=== PATIENT | male | born 1945 | race African-American/Black ===

== ENCOUNTER 2025-03-19 09:44 | Outpatient (REF) | payer MEDICARE, SELFPAY ==
--- NOTE | ~2025-03-19 | XR_ITS ---
EXAMINATION: XR KNEE 3 VIEWS LEFT HISTORY: M25.562 - Pain in left knee COMPARISON: There are no prior studies for comparison. FINDINGS: AP, lateral, and sunrise patellar views of the left knee are submitted. The patient is again noted to be status post left total knee arthroplasty. The orthopedic elements are in anatomic alignment. There is no radiographic evidence of loosening. There is no fracture or dislocation. There is no joint effusion. The soft tissues are unremarkable. XR/XR knee LT 3V IMPRESSION: Status post left total knee arthroplasty. Electronically signed by: Rodrigue Alvarez MD 03/19/2025 12:51 PM EDT
--- OUTSIDE RECORDS SUMMARY | 2025-03-20 10:31 | XMS_ITS | Clinical Summary ---
Author Organization [facility] Address [address] [place] [address] Phone Care Team Providers Care Punch Press Operator Name Role Phone Stas Winston MD Primary Care Provider [phone] Allergies Active Allergy Reactions Criticality Noted Date [...] Department Care Team Description 02/19/2025 Orders Only [facility] Nephrology [facility] [address] [place] [address] Tania Espino MA 02/10/2025 Orders Only [facility] Nephrology [facility] [address] [place] [address] Brielle Nick MA Stage 3a chronic kidney [...] Description 06/16/2025 3:00 PM EST Office Visit [facility] Nephrology [facility] [address] [place] [address] Ally Villanueva MD [address] [place] [address] Health Maintenance Due Date Last Done Comments Pneumococcal PPSV23/PCV13 65 + Years / Low and Medium Risk (2 of 3 - PCV20 or PCV21) 04/20/2016 04/20/2015 COVID-19 Vaccine ( - 2023-2 5 season) 2024 05/06/2021, 10/28/2020, 09/28/2020 Influenza Vaccine (#1) 2025 , 05/16/2019, 04/19/2018, Additional history exists Insurance Care Teams Punch Press Operator Relationship Specialty Start Date End Date Stas Winston MD PCP - General 11/07/24
--- OUTSIDE RECORDS SUMMARY | 2025-03-20 10:32 | XMS_ITS | Encounter Summary ---
Author Organization [facility] Address [address] [place] [address] Care Team Providers Care Solar System Installer Name Role Phone Stas Winston MD Primary Care Provider [phone] Encounter Details Date Type Department Care Team (Late st Contact Info) Description 11/23/2023 Scanned Document [facility] Department of Physiatry [place] [address] [place] [id number] Elissa Lay MD [address] [place] [address] Social History Tobacco Use Types Packs/Day Years Used Date Smoking Tobacco: Unknown Sex and Gender Information Value Date Recorded Sex Assigned at Not on file Legal Sex Male 11:25 AM EDT Gender Identity Not on file Sexual Orientation Not on file documented as of this encounter Plan of Treatment Not on file documented as of this encounter Goals Goal Patient Goal Type Associated Problems Recent Progress Patient-Stated? Author OT LTGs Occupational Therapy On track(2022 6:48 PM EST) No Jacque Ratliff OT Note: Pt. Will have improved L wrist AROM to Ext/Flex = 60-70, FA sup/pro=WNL without pain to position hand for prehension tasks 07/13/2023: in progress Pt. 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 Will be able to open containers without symptoms in order to complete housework 07/13/2023: in progress Pt. Will be able to push up from chair without symptoms to transfer to RW in order to complete I/ADLs 07/13/23: reports is able to push up but compensates with R hand Pt. Will improve score on Quick Dash to 20-25 to reflect gain in comfort/function. 07/13/23: 68.2 LTG length: 10 wks documented as of this encounter Visit Diagnoses Not on filedocumented in this encounter Care Teams Solar System Installer Relationship Specialty Start Date End Date Stas Winston MD PCP - General Family Medicine 05/09/23 documented as of this encounter
--- OUTSIDE RECORDS SUMMARY | 2025-03-20 10:32 | XMS_ITS | Clinical Summary ---
Author Organization [facility] Address [address] [place] [address] Care Team Providers Care Systems Software Specialist Name Role Phone Stas Winston MD Primary Care Provider [phone] Allergies Active Allergy Reactions Criticality Noted Date [...] 3 04/14/2022 Active Lancets (OneTouch Delica Plus [id number]) MISC USE WITH METER TO TEST ONCE [...] this topic Medical Devices Implanted Type Area Automobile Damage Field Appraiser Device Identifier Shelf Expiration Date Model / Serial / Lot Cement Simplex P Radiopaque Full Dose Bone 10 Pack - 975210 - [id number] Implanted:Qty: 1 on 04/23/2020 by Alan Quintanilla MD at [facility] Right: Knee [employer] [id number] 09/06/2021 6191-1-010 / / [id number] Cement Simplex P Radiopaque Full Dose Bone 10 Pack - 778931 - [id number] Implanted:Qty: 1 on 04/23/2020 by Alan Quintanilla MD at [facility] Right: Knee [employer] [id number] 09/06/2021 6191-1-010 / / [id number] Baseplate Triathlon 7 Cemented Primary Tibial Knee - 509688 - [id number] Implanted:Qty: 1 on 04/23/2020 by Alan Quintanilla MD at [facility] Right: Knee [employer] [id number] 05/28/2024 5520-B-700 / / [id number] Component Triathlon 6 Posterior Stabilized Cemented Femoral - 238222 - [id number] Implanted:Qty: 1 on 04/23/2020 by Alan Quintanilla MD at [facility] Right: Knee [employer] [id number] 03/19/2024 5515-F-602 / / [id number] Triathlon Ps Insert - Size 7 10mm X3 - 194411 - [id number] Implanted:Qty: 1 on 04/23/2020 by Alan Quintanilla MD at [facility] Right: Knee [employer] [id number] 01/27/2024 5532-G-710 -E / / [id number] Component Triathlon 10mm 35mm Symmetric X3 Ptlar Knee - [id number] - [id number] Implanted:Qty: 1 on 04/23/2020 by Alan Quintanilla MD at [facility] Right: Knee [employer] [id number] 01/28/2024 5551-G-350 / / [id number] Peg Triathlon Modular Fix Distal Femur Knee - 255061 - [id number] Implanted:Qty: 1 on 04/23/2020 by Alan Quintanilla MD at [facility] Right: Knee [employer] [id number] 09/03/2024 5575-X-000 / / [id number] Knee Fem Ps Trthln Sz 6 Lt Stry-Howm 4377-F-062-534 741 - [id number] Implanted:Qty: 1 on 08/26/2021 by Alan Quintanilla MD at [facility] Left: Knee [employer] [id number] 04/07/2026 5515-F-601 / / [id number] Baseplate Triathlon Cmnt Stry-Howm 2997-Y-612-349 798 - [id number] Implanted:Qty: 1 on 08/26/2021 by Alan Quintanilla MD at [facility] Left: Knee [employer] [id number] 01/14/2024 5520-B-700 / / [id number] Knee Insert Tib Ps X3 Sz 7-9 Stry-Howm 0048-E-763-547 884 - [id number] Implanted:Qty: 1 on 08/26/2021 by Alan Quintanilla MD at [facility] Left: Knee [employer] [id number] 12/20/2025 5532-G-709 / / [id number] Knee Pat Asymmetric X3 [id number] Stry-Howm 2164-K-923-E-2 58880 - [id number] Implanted:Qty: 1 on 08/26/2021 by Alan Quintanilla MD at [facility] Left: Knee [employer] [id number] 09/18/2025 5551-G-320 -E / / [id number] Peg Fix Femoral Distal Stry-Howm 4964-O-052-547 704 - [id number] Implanted:Qty: 1 on 08/26/2021 by Alan Quintanilla MD at [facility] Left: Knee [employer] [id number] 05/23/2025 5575-X-000 / / [id number] Cement Bone Surg Simplex Radiopq Stry-Howm 4699-7-717-114 092 - [id number] Implanted:Qty: 1 on 08/26/2021 by Alan Quintanilla MD at [facility] Left: Knee [employer] [id number] 10/05/2023 6191-1-010 / / [id number] Cement Bone Surg Simplex Radiopq Stry-Howm 5134-6-983-114 092 - [id number] Implanted:Qty: 1 on 08/26/2021 by Alan Quintanilla MD at [facility] Left: Knee [employer] [id number] 10/05/2023 6191-1-010 / / [id number] Advance Directives For more information, please contact: [phone] Latest Code Status on File Code Status [...] way: discussion with patient . Care Teams Systems Software Specialist Relationship Specialty Start Date End Date Stas Winston MD PCP - General Family Medicine 03/26/14
--- OUTSIDE RECORDS SUMMARY | 2025-03-20 10:32 | XMS_ITS ---
Author Name [facility] Organization Unknown Results Test Name/Text Value Interpretation Date Range Source AST SERPL CCNC 16.0 U/L Normal 01/16/2024 5 - 40 [facility] ANION GAP SERPL SCNC 12.0 mmol/L Normal 01/16/2024 5 - 14 [facility] SODIUM SERPL SCNC 146.0 mmol/L Above high normal 01/16/2024 135 - 145 [facility] CHLORIDE SERPL SCNC 105.0 mmol/L Normal 01/16/2024 98 - 1 07 [facility] ALBUMIN SERPL BCG MCNC 4.5 g/dL Normal 01/16/2024 3.5 - 5 [facility] CREAT SERPL MCNC 1.3 mg/dL Normal 01/16/2024 0.7 - 1.3 [facility] ALP SERPL-CCNC 116.0 U/L Above high normal 01/16/2024 34 - 1 04 [facility] HCO3 SER SCNC 29.0 mmol/L Normal 01/16/2024 24 - 32 [facility] POTASSIUM SERPL SCNC 4.0 mmol/L Normal 01/16/2024 3.5 - 5 .1 [facility] CALCIUM SERPL MCNC 9.8 mg/dL Normal 01/16/2024 8.4 - 10.2 [facility] GLUCOSE SERPL MCNC 74.0 mg/dL Normal 01/16/2024 70 - 199 [facility] PROT SERPL MCNC 7.2 g/dL Normal 01/16/2024 6.4 - 8.5 [facility] BUN SERPL MCNC 16.0 mg/dL Normal 01/16/2024 9 - 20 [facility] ALT SERPL CCNC 18.0 U/L Normal 01/16/2024 7 - 52 [facility] BILIRUB SERPL MCNC 0.9 mg/dL Normal 01/16/2024 0.3 - 1 [facility] Glomerular filtration rate/1.73 sq M. predicted 57.0 Below low normal 01/16/2024 60 - [facility] APTT TIME PPP 45.0 sec Above high normal 01/16/2024 25 - 37 [facility] PT TIME PPP 11.3 sec Normal 01/16/2024 10.5 - 13.3 [facility] EMG INR PPP 0.9 Normal 01/16/2024 0.8 - 1.1 [facility] MCHC RBC AUTO MCNC 33.9 g/dL Normal 2024 32 - 36 [facility] RDW RBC AUTO RTO 14.8 % Normal 2024 12.1 - 17.7 [facility] BASOPHILS IN BLOOD BY AUTOMATED COUNT 0.1 K/uL Normal 2024 0 - 0.2 [facility] MCH RBC QN AUTO 32.2 pg Normal 2024 25 - 33 [facility] LYMPHOCYTES NFR BLD AUTO 20.2 % Normal 2024 20 - 48 [facility] MONOCYTES NFR BLD AUTO 8.6 % Normal 2024 2 - 12 [facility] MCV RBC AUTO 94.7 fL Normal 2024 78 - 100 [facility] MG RBC NO. BLD AUTO 4.08 M/uL Below low normal 2024 4.7 - 6 [facility] PLATELET NO. BLD AUTO 332.0 K/uL Normal 2024 150 - 450 [facility] EOSINOPHIL NFR BLD AUTO 3.1 % Normal 2024 0 - 6 [facility] BASOPHILS NFR BLD AUTO 0.7 % Normal 2024 0 - 2 [facility] DIFFERENTIAL TYPE AUTOMATED Normal 2024 C [facility] MONOCYTES NO. BLD AUTO 0.8 K/uL Normal 2024 0 - 0.8 [facility] EOSINOPHIL NO. BLD AUTO 0.3 K/uL Normal 2024 0 - 0.5 [facility] WBC NO. BLD AUTO 8.8 K/uL Normal 2024 4 - 10.5 [facility] LYMPHOCYTES NO. BLD AUTO 1.8 K/uL Normal 2024 1 - 3.2 [facility] PMV BLD AUTO 8.0 fL Normal 2024 7.4 - 11.4 [facility] EM[facility] HCT VFR BLD AUTO 38.7 % Below low normal 2024 40 - 54 [facility] NEUTROPHILS NFR BLD AUTO 67.4 % Normal 2024 44 - 74 [facility] HGB BLD MCNC 13.1 g/dL Below low normal 2024 13.5 - 18 [facility] NEUTROPHILS NO. BLD AUTO 5.9 K/uL Normal 2024 1.8 - 7.8 [facility] CREAT UR MCNC 118.9 mg/dL Normal 10/04/2023 [facility] PROT UR MCNC 41.2 mg/dL Above high normal 10/04/2023 - 14 [facility] Prot/Creat Ur 0.35 Normal 10/04/2023 [facility] FERRITIN SERPL MCNC 61.0 ng/mL Normal 10/04/2023 20 - 250 [facility] HDLC SERPL-MCNC 51.0 mg/dL Normal 10/04/2023 32 - 70 [facility] TRIGL SERPL-MCNC 100.0 mg/dL Normal 10/04/2023 - 150 [facility] LDLc SerPl Calc-mCnc 79.0 mg/dL Normal 10/04/2023 50 - 13 0 [facility] CHOLEST SERPL-MCNC 150.0 mg/dL Normal 10/04/2023 0 - 200 [facility] ANION GAP SERPL SCNC 14.0 mmol/L Normal 10/04/2023 5 - 14 [facility] AST SERPL CCNC 12.0 U/L Normal 10/04/2023 5 - 40 [facility] CREAT SERPL MCNC 1.1 mg/dL Normal 10/04/2023 0.7 - 1.3 [facility] PROT SERPL MCNC 7.6 g/dL Normal 10/04/2023 6.4 - 8.5 [facility] ALP SERPL-CCNC 109.0 U/L Above high normal 10/04/2023 34 - 1 04 [facility] ALT SERPL CCNC 12.0 U/L Normal 10/04/2023 7 - 52 [facility] SODIUM SERPL SCNC 145.0 mmol/L Normal 10/04/2023 135 - 14 5 [facility] GLUCOSE SERPL MCNC 130.0 mg/dL Normal 10/04/2023 70 - 199 [facility] ALBUMIN SERPL BCG MCNC 4.8 g/dL Normal 10/04/2023 3.5 - 5 [facility] POTASSIUM SERPL SCNC 3.7 mmol/L Normal 10/04/2023 3.5 - 5 .1 [facility] BUN SERPL MCNC 18.0 mg/dL Normal 10/04/2023 9 - 20 [facility] BILIRUB SERPL MCNC 0.7 mg/dL Normal 10/04/2023 0.3 - 1 [facility] CHLORIDE SERPL SCNC 105.0 mmol/L Normal 10/04/2023 98 - 1 07 [facility] Glomerular filtration rate/1.73 sq M. predicted 70.0 Normal 10/04/2023 60 - [facility] CALCIUM SERPL MCNC 10.0 mg/dL Normal 10/04/2023 8.4 - 10. 2 [facility] HCO3 SER SCNC 26.0 mmol/L Normal 10/04/2023 24 - 32 [facility] PLATELET NO. BLD AUTO 326.0 K/uL Normal 10/04/2023 150 - 450 [facility] BASOPHILS NFR BLD AUTO 0.5 % Normal 10/04/2023 0 - 2 [facility] NEUTROPHILS NFR BLD AUTO 66.9 % Normal 10/04/2023 44 - 74 [facility] LYMPHOCYTES NO. BLD AUTO 1.8 K/uL Normal 10/04/2023 1 - 3.2 [facility] WBC NO. BLD AUTO 8.3 K/uL Normal 10/04/2023 4 - 10.5 [facility] RDW RBC AUTO RTO 15.5 % Normal 10/04/2023 12.1 - 17.7 [facility] BASOPHILS IN BLOOD BY AUTOMATED COUNT 0.0 K/uL Normal 10/04/2023 0 - 0.2 [facility] LYMPHOCYTES NFR BLD AUTO 21.2 % Normal 10/04/2023 20 - 48 [facility] MONOCYTES NFR BLD AUTO 7.9 % Normal 10/04/2023 2 - 12 [facility] PMV BLD AUTO 7.8 fL Normal 10/04/2023 7.4 - 11.4 [facility] EM[facility] EOSINOPHIL NFR BLD AUTO 3.5 % Normal 10/04/2023 0 - 6 [facility] RBC NO. BLD AUTO 4.19 M/uL Below low normal 10/04/2023 4.7 - 6 [facility] DIFFERENTIAL TYPE AUTOMATED Normal 10/04/2023 C [facility] HCT VFR BLD AUTO 38.4 % Below low normal 10/04/2023 40 - 54 [facility] MONOCYTES NO. BLD AUTO 0.7 K/uL Normal 10/04/2023 0 - 0.8 [facility] MCV RBC AUTO 91.7 fL Normal 10/04/2023 78 - 100 [facility] MG MCH RBC QN AUTO 30.6 pg Normal 10/04/2023 25 - 33 [facility] HGB BLD MCNC 12.8 g/dL Below low normal 10/04/2023 13.5 - 18 [facility] NEUTROPHILS NO. BLD AUTO 5.6 K/uL Normal 10/04/2023 1.8 - 7.8 [facility] EOSINOPHIL NO. BLD AUTO 0.3 K/uL Normal 10/04/2023 0 - 0.5 [facility] MCHC RBC AUTO MCNC 33.4 g/dL Normal 10/04/2023 32 - 36 [facility] URATE SERPL MCNC 9.4 mg/dL Above high normal 10/04/2023 3.5 - 8.5 [facility] TIBC SERPL MCNC 372.0 ug/dL Normal 10/04/2023 250 - 450 [facility] IRON SERPL MCNC 77.0 mcg/dL Normal 10/04/2023 49 - 181 [facility] UIBC SERPL MCNC 295.0 ug/dL Normal 10/04/2023 155 - 355 [facility] IRON SATN MFR SERPL 21.0 % Normal 10/04/2023 20 - 45 [facility] ESR Bld Qn Photometric 45.0 mm/h Above high normal 10/04/2023 0 - 15 [facility] Glomerular filtration rate/1.73 sq M. predicted 63.0 Normal 05/29/2023 60 - [facility] HCO3 SER SCNC 30.0 mmol/L Normal 05/29/2023 24 - 32 [facility] SODIUM SERPL SCNC 145.0 mmol/L Normal 05/29/2023 135 - 14 5 [facility] GLUCOSE SERPL MCNC 179.0 mg/dL Normal 05/29/2023 70 - 199 [facility] CALCIUM SERPL MCNC 8.7 mg/dL Normal 05/29/2023 8.4 - 10.2 [facility] CHLORIDE SERPL SCNC 106.0 mmol/L Normal 05/29/2023 98 - 1 07 [facility] BUN SERPL MCNC 17.0 mg/dL Normal 05/29/2023 9 - 20 [facility] CREAT SERPL MCNC 1.2 mg/dL Normal 05/29/2023 0.7 - 1.3 [facility] POTASSIUM SERPL SCNC 3.3 mmol/L Below low normal 05/29/2023 3.5 - 5.1 [facility] ANION GAP SERPL SCNC 9.0 mmol/L Normal 05/29/2023 5 - 14 [facility] HDLC SERPL-MCNC 41.0 mg/dL Normal 05/29/2023 32 - 70 [facility] CHOLEST SERPL-MCNC 133.0 mg/dL Normal 05/29/2023 0 - 200 [facility] LDLc SerPl Calc-mCnc 73.0 mg/dL Normal 05/29/2023 50 - 13 0 [facility] TRIGL SERPL-MCNC 93.0 mg/dL Normal 05/29/2023 - 150 C [facility] Hgb A1c MFr Bld HPLC 7.8 % Above high normal 05/29/2023 - 5.7 [facility] MAGNESIUM SERPL MCNC 1.4 mg/dL Below low normal 05/29/2023 1 .7 - 2.8 [facility] HCT VFR BLD AUTO 33.6 % Below low normal 05/29/2023 40 - 54 [facility] RBC NO. BLD AUTO 3.56 M/uL Below low normal 05/29/2023 4.7 - 6 [facility] MCH RBC QN AUTO 31.6 pg Normal 05/29/2023 25 - 33 [facility] WBC NO. BLD AUTO 7.4 K/uL Normal 05/29/2023 4 - 10.5 [facility] RDW RBC AUTO RTO 14.5 % Normal 05/29/2023 12.1 - 17.7 [facility] PLATELET NO. BLD AUTO 250.0 K/uL Normal 05/29/2023 150 - 450 [facility] MCV RBC AUTO 94.3 fL Normal 05/29/2023 78 - 100 [facility]AN MCHC RBC AUTO MCNC 33.5 g/dL Normal 05/29/2023 32 - 36 [facility] PMV BLD AUTO 7.5 fL Normal 05/29/2023 7.4 - 11.4 [facility] YUAN HGB BLD MCNC 11.3 g/dL Below low normal 05/29/2023 13.5 - 18 [facility] Troponin I SerPl HS-mCnc 9.0 ng/L Normal 05/28/2023 0 - 20 [facility] MONOCYTES NFR BLD AUTO 7.9 % Normal 05/28/2023 2 - 12 [facility] NEUTROPHILS NFR BLD AUTO 64.9 % Normal 05/28/2023 44 - 74 [facility] PLATELET NO. BLD AUTO 280.0 K/uL Normal 05/28/2023 150 - 450 [facility] PMV BLD AUTO 7.8 fL Normal 05/28/2023 7.4 - 11.4 [facility] DIFFERENTIAL TYPE AUTOMATED Normal 05/28/2023 C [facility] NEUTROPHILS NO. BLD AUTO 5.3 K/uL Normal 05/28/2023 1.8 - 7.8 [facility] MCV RBC AUTO 95.6 fL Normal 05/28/2023 78 - 100 [facility] EOSINOPHIL NO. BLD AUTO 0.3 K/uL Normal 05/28/2023 0 - 0.5 [facility] BASOPHILS IN BLOOD BY AUTOMATED COUNT 0.1 K/uL Normal 05/28/2023 0 - 0.2 [facility] MONOCYTES NO. BLD AUTO 0.7 K/uL Normal 05/28/2023 0 - 0.8 [facility] RDW RBC AUTO RTO 14.8 % Normal 05/28/2023 12.1 - 17.7 [facility] MCHC RBC AUTO MCNC 33.3 g/dL Normal 05/28/2023 32 - 36 [facility] HCT VFR BLD AUTO 35.9 % Below low normal 05/28/2023 40 - 54 [facility] WBC NO. BLD AUTO 8.2 K/uL Normal 05/28/2023 4 - 10.5 [facility] MCH RBC QN AUTO 31.8 pg Normal 05/28/2023 25 - 33 [facility] LYMPHOCYTES NFR BLD AUTO 23.0 % Normal 05/28/2023 20 - 48 [facility] EOSINOPHIL NFR BLD AUTO 3.3 % Normal 05/28/2023 0 - 6 [facility] HGB BLD MCNC 12.0 g/dL Below low normal 05/28/2023 13.5 - 18 [facility] BASOPHILS NFR BLD AUTO 0.9 % Normal 05/28/2023 0 - 2 [facility] LYMPHOCYTES NO. BLD AUTO 1.9 K/uL Normal 05/28/2023 1 - 3.2 [facility] RBC NO. BLD AUTO 3.76 M/uL Below low normal 05/28/2023 4.7 - 6 [facility] Troponin I SerPl HS-mCnc 6.0 ng/L Normal 05/28/2023 0 - 20 [facility] HCO3 SER SCNC 24.0 mmol/L Normal 05/28/2023 24 - 32 [facility] CHLORIDE SERPL SCNC 104.0 mmol/L Normal 05/28/2023 98 - 1 07 [facility] BUN SERPL MCNC 17.0 mg/dL Normal 05/28/2023 9 - 20 [facility] SODIUM SERPL SCNC 142.0 mmol/L Normal 05/28/2023 135 - 14 5 [facility] POTASSIUM SERPL SCNC 3.5 mmol/L Normal 05/28/2023 3.5 - 5 .1 [facility] ANION GAP SERPL SCNC 14.0 mmol/L Normal 05/28/2023 5 - 14 [facility] CALCIUM SERPL MCNC 9.2 mg/dL Normal 05/28/2023 8.4 - 10.2 [facility] Glomerular filtration rate/1.73 sq M. predicted 70.0 Normal 05/28/2023 60 - [facility] CREAT SERPL MCNC 1.1 mg/dL Normal 05/28/2023 0.7 - 1.3 [facility] GLUCOSE SERPL MCNC 240.0 mg/dL Above high normal 05/28/2023 70 - 199 [facility] History of Medication Use Medication Directions Dispensed Refills Start Date End Date Status Mounjaro 10 mg/0.5 mL subcutaneous pen injector Inject 10 mg every week by subcutaneous route. 4 active colchicine 0.6 mg tablet Take 1 tablet every day by oral route. 4 active Tirzepatide (Mounjaro) 5 MG/0.5ML Solution Pen-injector Inject 0.5 mL every week by subcutaneous route. 4 06/26/20 24 aborted predniSONE (DELTASONE) 20 MG tablet Take 2 tablets (40 mg total) by mouth daily. With food. 3 06/26/20 24 aborted ibuprofen (ADVIL,MOTRIN) 400 mg tablet Take 1 tablet (400 mg total) by mouth. 3 08/19/19 25 aborted ibuprofen 400 MG tablet Take 1 tablet (400 mg total) by mouth. 3 active methylPREDNISolone (MEDROL DOSEPAK) 4 MG tablet follow package directions 3 06/26/20 24 active methylPREDNISolone (MEDROL DOSEPACK) 4 MG tablet TAKE 6 TABLETS ON DAY 1 DIRECTED ON PACKAGE AND DECREASE BY 1 TAB EACH DAY FOR A TOTAL OF 6 DAYS 3 active carvediloL (COREG) 6.25 mg tablet Take 1 tablet (6.25 mg total) by mouth 2 (two) times a day. 3 active codeine 10 mg-guaifenesin 100 mg/5 mL Syrup Take 5 mL by mouth 4 (four) times a day as needed for cough. 3 10/03/19 24 completed amoxicillin 500 mg tablet Take 4 tabs 1 hour prior to dental appointment 2 active amoxicillin (AMOXIL) 500 MG tablet Take 4 tabs 1 hour prior to dental appointment 2 active methocarbamol 750 mg tablet Take 1 tablet (750 mg total) by mouth every 6 (six) hours as needed. 2 01/08/20 22 completed oxycodone 5 mg tablet,oral ONLY (not feeding tubes) Take 1 tablet (5 mg total) by mouth every 4 (four) hours as needed. 2 01/08/20 22 completed aspirin 81 mg tablet,delayed release Take 1 tablet (81 mg total) by mouth 2 (two) times a day after meals. 2 active cholecalciferol (VITAMIN D-3) 25 mcg (1,000 unit) capsule Take 1 capsule (1,000 Units total) by mouth 1 (one) time each day. 1 active Vitamin D, Cholecalciferol, 25 MCG (1000 UT) CAPS Take 1,000 Units by mouth daily. 1 active fluticasone propionate 50 mcg/actuation nasal spray,suspension USE 1 TO 2 SPRAYS IN EACH NOSTRIL EVERY DAY 9 08/12/19 22 completed Shingrix (PF) 50 mcg/0.5 mL intramuscular suspension, kit ADM 0.5ML IM UTD 9 01/08/20 20 completed cyclobenzaprine 10 mg tablet Take 1 tablet (10 mg total) by mouth 3 (three) times a day as needed for muscle spasms. 9 05/07/20 19 completed methocarbamol 500 mg tablet Take 1 tablet (500 mg total) by mouth 3 (three) times a day. 9 05/07/20 19 completed atorvastatin 40 mg tablet Take 1 tablet (40 mg total) by mouth daily. 9 08/20/19 19 completed naproxen 500 mg tablet Take 1 tablet (50 0 mg total) by mouth 2 (two) times a day with meals. 8 08/20/19 19 completed tizanidine 2 mg tablet Take 1-2 tabs po Q 8 hours prn spasm 6 08/17/19 17 completed hydromorphone 8 mg tablet Take 1 tablet (8 mg total) by mouth every 4 (four) hours as needed. 5 12/18/19 15 completed diclofenac 1 % topical gel APPLY 2 GRAMS TO THE LOWER BACK BY TOPICAL ROUTE 4 TIMES PER DAY 08/13/19 25 completed lidocaine 5 % topical patch APPLY 1 PATCH BY TOPICAL ROUTE ONCE DAILY (MAY WEAR UP TO 12HOURS.) 08/13/19 25 completed oxycodone-acetaminophe n 5 mg-325 mg tablet TAKE 1 TABLET BY MOUTH EVERY 8 HOURS FOR UP TO 5 DAYS NEEDED FOR PAIN 04/23/20 24 active prednisone 10 mg tablet TAKE 3 TABS X 4 DAYS, 2 TABS X 4 DAYS THEN 1 TAB X 4 DAYS 04/23/20 24 completed prednisone 20 mg tablet TAKE 2 TABLETS BY MOUTH EVERY DAY WITH FOOD 04/23/20 24 active triamterene 37.5 mg-hydrochlorothiazide 25 mg capsule TAKE 1 CAPSULE BY MOUTH TWICE DAILY 04/23/20 24 completed colchicine 0.6 mg tablet TAKE 1 TABLET BY MOUTH EVERY DAY 02/01/20 24 completed ibuprofen 400 mg tablet 02/01/20 24 completed lisinopril 20 mg tablet 02/01/20 24 active Mounjaro 2.5 mg/0.5 mL subcutaneous pen injector INJECT 2.5 MG SUBCUTANEOUSLY WEEKLY 11/17/19 24 completed Cloupia Verio test strips USE WITH METER TO TEST ONCE DAILY 11/17/19 24 active amoxicillin 500 mg capsule TAKE 4 CAPS 1 HOUR PRIOR TO DENTAL APPOINTMENT 10/03/19 24 completed Ferrous Sulfate ER 142 (45 Fe) MG TBCR Take by mouth. 08/15/19 24 aborted codeine 10 mg-guaifenesin 100 mg/5 mL oral liquid TAKE 5 ML BY MOUTH FOUR TIMES DAILY NEEDED 06/07/20 23 active neomycin 3.5 mg/g-polymyxin B 10,000 unit/g-dexameth 0.1 % eye oint APPLY 1/4 INCH STRIP INSIDE LOWER EYE LID TWICE A DAY FOR 7 DAYS 06/07/20 23 completed tobramycin 0.3 %-dexamethasone 0.1 % eye drops,suspension INSTILL 1 DROP INTO RIGHT EYE FOUR TIMES A DAY FOR 7 DAYS THEN TWICE A DAY FOR 7 DAYS. SHAKE WELL 06/07/20 23 completed acetaminophen 325 mg tablet Take 650 mg by mouth every 6 (six) hours as needed for pain. 01/26/20 16 completed diclofenac 1 % topical gel active lidocaine 5 % topical patch active amoxicillin 500 mg capsule TAKE 4 CAPS 1 HOUR PRIOR TO DENTAL APPOINTMENT active aspirin 81 mg capsule Take 1 capsule every day by oral route. active atorvastatin 20 mg tablet active cyclobenzaprine 5 mg tablet TAKE 1 TABLET EVERY DAY BY ORAL ROUTE AT BEDTIME FOR 21 DAYS, FOR PAIN. active diclofenac 1 % topical gel APPLY 2 GRAMS TO THE LOWER BACK BY TOPICAL ROUTE 4 TIMES PER DAY active lidocaine 5 % topical patch APPLY 1 PATCH BY TOPICAL ROUTE ONCE DAILY (MAY WEAR UP TO 12HOURS.) active metformin 500 mg tablet TAKE 1 TABLET BY MOUTH AT BREAKFAST AND 2 TABLETS WITH DINNER active Mounjaro 5 mg/0.5 mL subcutaneous pen injector INJECT 0.5 ML SUBCUTANEOUSLY EVERY WEEK active Mounjaro 7.5 mg/0.5 mL subcutaneous pen injector INJECT 7.5 MG SUBCUTANEOUSLY WEEKLY active amLODIPine (NORVASC) 5 mg tablet Take 1 tablet (5 mg total) by mouth 1 (one) time each day. active amLODIPine (NORVASC) tablet 5 mg Take 1 tablet (5 mg total) by mouth daily. active aspirin enteric coated (ECOTRIN LOW STRENGTH) 81 MG EC tablet Take 81 mg by mouth. active Atorvastatin Calcium TABS Atorvastatin Calcium TABS Refills: 0Active completed carvedilol (COREG) 6.25 MG tablet Take 6.25 mg by mouth 2 times a day. active Ferrous Sulfate (SLOW RELEASE IRON PO) Take 65 mg by mouth daily. active Allergies Allergen Reaction Severity Comment Documented Date Source Status EMPAGLIFLOZIN UNKNOWN/PATIE NT AND FAMILY UNABLE TO DEFINE [facility] 12/08/20[facility] DAPAGLIFLOZIN UNKNOWN/PATIE NT AND FAMILY UNABLE TO DEFINE Nausea dizziness 08/15/2022 [facility] active DAPAGLIFLOZIN PROPANEDIOL [facility] FARXIGA ENS_AONECT JARDIANCE ENS_AONECT Problems Problem Status Onset Date Problem Type Date of Resolution Source Stage 3a chronic kidney disease ([facility] V24, [facility] V28) active 2021-06-02 ProblemAct [facility] Hyperlipemia active 2014-11-02 ProblemAct [facility] Adrenal benign neoplasm active 2015-04-17 ProblemAct [facility] Spinal stenosis, lumbar region, without neurogenic claudication active 2015-04-28 ProblemAct [facility] Nonrheumatic aortic valve insufficiency active 2020-04-22 ProblemAct [facility] AN Peripheral neuropathy active 2014-11-02 ProblemAct [facility] Anemia, unspecified active 2015-04-17 ProblemAct [facility] Obesity (BMI 30.0-34.9) active 2021-08-17 ProblemAct [facility] Chest pain active 2023-05-28 ProblemAct [facility]SF RAN Open angle with borderline findings and low glaucoma risk in both eyes active 2017-06-27 ProblemAct [facility] Vertigo active 2020-01-27 ProblemAct [facility] AN Allergic rhinitis active 2015-04-17 ProblemAct [facility] Vitamin D deficiency active 2020-06-05 ProblemAct [facility] Acute pain of right knee active 2018-06-18 ProblemAct [facility] Lumbosacral spondylosis without myelopathy active 2015-04-28 ProblemAct [facility] Hypermetropia of both eyes active 2017-06-27 ProblemAct [facility] Lesion of face active 2018-12-18 ProblemAct [facility]_ [facility] Diabetes (CMS/HCC V24, CMS/HCC V28) active 2014-11-02 ProblemAct [facility] Hypertension active 2014-11-02 ProblemAct [facility] SFR[facility] Benign paroxysmal positional vertigo due to bilateral vestibular disorder active 2016-06-16 ProblemAct [facility] AN Obstructive sleep apnea active 2022-07-19 ProblemAct [facility] Acute right-sided low back pain with sciatica active 2022-01-07 ProblemAct [facility] Localized edema active EncounterDiagnosisAct [facility] Former light tobacco smoker active 2023-01-24 ProblemAct [facility] Obesity (BMI 30.0-34.9) active 2021-08-17 ProblemAct [facility] History of colonic polyps active 2016-01-26 ProblemAct [facility] Chronic knee pain after total replacement of left knee joint active EncounterDiagnosisAct [facility] Bilateral carpal tunnel syndrome active 2023-12-11 ProblemAct [facility] Osteoarthritis of finger joint of right hand active 2024-08-14 ProblemAct ENS_AONECT Pain of left knee joint active 2023-02-20 ProblemAct E[facility]_AONECT Bilateral carpal tunnel syndrome active 2023-11-23 ProblemAct [facility] Pain of left hand active 2023-11-23 ProblemAct E[facility]_AON[facility] History of left total knee replacement active 2023-05-01 ProblemAct [facility] History of right total knee replacement active 2023-05-01 ProblemAct E[facility]_AONECT Edema of lower extremity active 2024 ProblemAct [facility] Persistent cough active 2024-09-24 ProblemAct C T_PRIVIA Jaw pain active 2022-12-09 ProblemAct [facility] A Anemia active 2015-04-17 ProblemAct [facility] A Bilateral hyperopia of eyes active 2017-06-27 ProblemAct [facility] Lesion of face active 2018-12-18 ProblemAct [facility]_ PR[facility] Vitamin D deficiency active 2020-06-05 ProblemAct [facility] Swelling of lower leg active 2024 ProblemAct [facility] 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 active 2017-06-27 ProblemAct [facility] Pain in fingers of bilateral hands active 2023-10-03 ProblemAct [facility] Vertigo active 2020-01-27 ProblemAct [facility] A Lumbosacral spondylosis without myelopathy active 2015-04-28 ProblemAct [facility] Bilateral pain of joint of hands active 2023-10-05 ProblemAct [facility] Essential hypertension active 2023-10-03 ProblemAct [facility] History of polyp of colon active 2016-01-26 ProblemAct [facility] Allergic rhinitis active 2015-04-17 ProblemAct [facility] Benign paroxysmal positional vertigo active 2016-06-16 ProblemAct [facility] Increased frequency of urination active 2022-12-08 ProblemAct [facility] Benign neoplasm of adrenal gland active 2015-04-17 ProblemAct [facility] Obese class I active 2021-08-17 ProblemAct [facility]P R[facility] Peripheral nerve disease active 2014-11-02 ProblemAct [facility] Immunizations Vaccine Date Source Lot Number Status Fluad Triv (65y up)(P F) 45 mcg (15 mcg x 3)/0.5 mL IM syringe 04/23/2024 [facility] [id number] compl eted Fluad Quad (65yr up )(PF) 60 mcg (15 mcg x 4)/0.5mL IM syringe 05/25/2023 [facility] [id number] co mpleted Prevnar 20 (PF) 0.5 mL intra muscular syringe 03/20/2023 CT_PRIVIA [id number] completed Influenza Quadravalent, 0.5m l (Fluad) 65yo and older 05/12/2022 CT_MAGUE [id number] completed SARS-COV-2 (COVID-19) vaccin e, mRNA, spike protein, LNP, bivalent booster, preservative free, 30 mcg/0.3 mL dose, jigar-sucrose formulation 04/27/2022 CT_CONCETTA [id number] complet ed Influenza Quadravalent, 0.5m l (Fluad) 65yo and older 06/01/2021 CT_MAGUE [id number] completed Covid-19 MRNA Vaccine - Pfiz er 12+ (Purple Cap) 05/06/2021 [facility] [id number] completed tetanus toxoid, reduced diph theria toxoid, and acellular pertussis vaccine, adsorbed 03/16/2021 [facility]_CONCETTA [id number] completed zoster vaccine subunit 03/16/2021 ANTONY [id number] co mpleted SARS-COV-2 (COVID-19) vaccin e, mRNA, spike protein, LNP, preservative free, 30 mcg/0.3mL dose 10/28/2020 ANTONY [id number] completed SARS-COV-2 (COVID-19) vaccin e, mRNA, spike protein, LNP, preservative free, 30 mcg/0.3mL dose 09/28/2020 ANTONY [id number] completed Influenza Quadravalent, 0.5m l (Fluad) 65yo and older 05/29/2020 [facility] [id number] completed Influenza trivalent, 0.5mL ( Fluad) 65yo and older 05/16/2019 [facility] [id number] completed zoster vaccine subunit 05/15/2019 ANTONY [id number] co mpleted Influenza trivalent, 0.5mL ( Fluad) 65yo and older 04/19/2018 [facility]FRAN [id number] completed Influenza trivalent, with pr eservative (Fluzone; Afluria) 6mo and older 04/18/2017 [facility] [id number] completed Influenza trivalent, with pr eservative (Fluzone; Afluria) 6mo and older 06/16/2016 [facility]_SFRAN [id number] completed Influenza trivalent, with pr eservative (Fluzone; Afluria) 6mo and older 04/20/2015 [facility]_THSFRAN [id number] completed Pneumococcal conjugate 13 va lent (Prevnar 13, PCV13) 2mo and older 04/20/2015 [facility]SFRAN [id number] complet ed Pneumococcal polysaccharide 23 valent (Pneumovax 23) 2yo and older 05/13/2013 [facility]_THSFR[facility] com pleted Tdap Tetanus diptheria acell ular pertussis (Boostrix; Adacel) 7yo and older 06/03/2011 [facility] completed Zoster Live 05/17/2007 [facility] completed Td Tetanus diptheria, preser vative free (Tenivac) 7yo and older 08/07/2000 [facility] complete d Pneumococcal polysaccharide 23 valent (Pneumovax 23) 2yo and older 06/04/1998 [facility]_THSFRAN com pleted Encounters Encounter Type Encounter Reason Primary Diagnosis Location Date Ambulatory Personal history of other diseases of the circulatory system Personal history of other diseases of the circulatory system [facility] 2025 Ambulatory [facility]2024 Ambulatory Pain in left knee Pain in left knee [facility] 09/25/2024 [facility] Amb[facility] Pain in left knee Pain in left knee [facility] 09/19/2024 Ambulatory Pain in left knee Pain in left knee [facility] 09/17/2024 Ambulatory [facility] 09/13/2024 Ambulatory Pain in left knee Pain in left knee [facility] 09/11/2024 Ambulatory Pain in left knee Pain in left knee [facility] 09/09/2024 [facility] 08/30/2024 Ambulatory Pain in left knee Pain in left knee [facility] [facility] [employer] [employer] 08/28/2024 Ambulatory Pain in left knee Pain in left knee [facility] 08/22/2024 Ambulatory Pain in left knee Pain in left knee [facility] [employer] 08/20/2024 Ambulatory [facility] 08/19/2024 Ambulatory [facility] 08/15/2024 Ambulatory Pain in left knee Pain in left knee [facility] [employer] 08/15/2024 Ambulatory [facility] 08/13/2024 Ambulatory [facility] 08/13/2024 Ambulatory Pain in left knee Pain in left knee [facility] [employer] 08/12/2024 Ambulatory Pain in left knee Pain in left knee [facility] [employer] 08/08/2024 Ambulatory Cough Cough [facility] 06/26/2024 Ambulatory [facility], [facility] 05/17/2024 Ambulatory [facility] [employer], [facility] 05/17/2024 Ambulatory [facility] [email or web address], [facility] 05/17/2024 Ambulatory [facility] [employer], [facility] 05/17/2024 Ambulatory [facility] 04/25/2024 Ambulatory [facility] 04/24/2024 Ambulatory [facility] 04/23/2024 Ambulatory [facility] [email or web address], [facility] 03/01/2024 [facility]/28/2024 Ambulatory [facility] 02/13/2024 Ambulatory [facility] 02/07/2024 Ambulatory [facility] 02/02/2024 Ambulatory [facility] 01/30/2024 Ambulatory ROUTINE Carpal tunnel syndrome, right upper limb [facility] 01/22/2024 Ambulatory [facility] [email or web address] 01/22/2024 Ambulatory [facility] [employer] 2024 Ambulatory [facility] 12/22/2023 Ambulatory [facility] 12/21/2023 Ambulatory Carpal tunnel syndrome, bilateral upper limbs Carpal tunnel syndrome, bilateral upper limbs [facility] [employer] 12/08/2023 Ambulatory [facility] 11/23/2023 Ambulatory Synovitis and tenosynovitis, unspecified Synovitis and tenosynovitis, unspecified [facility] [employer] 08/30/2023 Ambulatory Synovitis and tenosynovitis, unspecified Synovitis and tenosynovitis, unspecified [employer] 08/23/2023 Ambulatory Obstructive sleep apnea (adult) (pediatric) Obstructive sleep apnea (adult) (pediatric) [facility] 08/21/2023 Ambulatory Pain in right hand Pain in right hand [facility] [employer] 08/17/2023 Ambulatory Pain in right hand Pain in right hand [facility] [employer] 08/17/2023 Ambulatory Primary osteoarthritis, left wrist Primary osteoarthritis, left wrist [facility] 08/09/2023 Ambulatory [employer] [facility] 07/13/2023 Ambulatory [facility] 07/11/2023 Ambulatory Primary osteoarthritis, left wrist Primary osteoarthritis, left wrist [facility] 07/11/2023 Ambulatory [employer] [facility] [employer] 07/06/2023 Ambulatory [employer] [facility] 07/04/2023 Ambulatory [facility] 06/07/2023 Ambulatory Stiffness of left wrist, not elsewhere classified Stiffness of left wrist, not elsewhere classified [facility] 06/01/2023 Ambulatory Primary osteoarthritis, left wrist Primary osteoarthritis, left wrist [facility] 05/30/2023 Inpatient Chest pain, unspecified Chest pain, unspecified [facility] 05/28/2023 Ambulatory Primary osteoarthritis, left wrist Primary osteoarthritis, left wrist [facility] 05/17/2023 Ambulatory Pain in left wrist Pain in left wrist [facility] [employer] 05/09/2023 Ambulatory Pain in left wrist Pain in left wrist [facility] [employer] 05/09/2023 Emergency Pain in unspecified ankle and joints of unspecified foot Pain in unspecified ankle and joints of unspecified foot [facility] 05/06/2023 Ambulatory [facility] 05/05/2023 Ambulatory Presence of left artificial knee joint Presence of left artificial knee joint [facility] 05/05/2023 Ambulatory [facility] 05/01/2023 Ambulatory [facility] 03/27/2023 Ambulatory [facility] 03/24/2023 Ambulatory [facility] 03/08/2023 Ambulatory [facility] 02/21/2023 Ambulatory [facility] 02/17/2023 Ambulatory [facility] 02/15/2023 Ambulatory [facility] 02/14/2023 Ambulatory Snoring [facility] 02/14/2023 Ambulatory [facility] 02/08/2023 Ambulatory [facility] 02/06/2023 Ambulatory [facility] 02/01/2023 Ambulatory [facility] 01/30/2023 Ambulatory [facility] 01/25/2023 Ambulatory [facility] 01/23/2023 Ambulatory [facility] 01/13/2023 Ambulatory [facility] 12/14/2022 Ambulatory [facility] 12/14/2022 Ambulatory [facility] 12/14/2022 Ambulatory [facility] 12/14/2022 Ambulatory [facility] 12/14/2022 Ambulatory [facility] 12/13/2022 Ambulatory [facility] 12/13/2022 Ambulatory [facility] 12/13/2022 Ambulatory [facility] 12/13/2022 Ambulatory [facility] 10/12/2022 Ambulatory Encounter for immunization [facility] 05/06/2021 Care Team Organization Name Specialty Phone Email Start Date End [facility] 12/18/2024 [facility] 09/06/2024 [facility] 08/19/2024 [facility] 03/13/2024 [facility] 2023 [facility] 2023 [facility] 05/10/2023 11/19/2024 [facility] 05/09/2023 05/26/2023 [facility] 05/05/2023 05/06/2023 [facility] 02/10/2025 [facility] 01/29/2023 [facility] 01/18/2023 01/23/2023 [facility] 05/06/2021 11/19/2024 [facility] 05/06/2021 05/06/2021
--- OUTSIDE RECORDS SUMMARY | 2025-03-20 10:32 | XMS_ITS | Clinical Summary ---
Author Organization [facility] Address [address] [place] [address] Care Team Providers Care Video Conference Specialist Name Role Phone Richard Garcia MD Primary Care Provider [phone] Medications metFORMIN HCl 625 MG Tab 0 [...] 0 07/19/2022 Active Lancets (OneTouch Delica Plus [id number]) Misc 100 0 08/04/2022 Active Glucose Blood [...] this topic Zoster (Zostavax) Discontinued Care Teams Video Conference Specialist Relationship Specialty Start Date End Date Richard Garcia MD [address] [facility] [address] [place] [address] PCP - General 03/13/23
== END 2025-03-19 09:45 | disposition home or self-care (01) ==
LOC: HO.HOSX 09:44
PROVIDERS: Visit Provider Orthopaedic Surgery
DX: M25.562 Pain in left knee (principal); Z79.899 Other long term (current) drug therapy; Z79.82 Long term (current) use of aspirin; Z96.652 Presence of left artificial knee joint; Z79.84 Long term (current) use of oral hypoglycemic drugs
CPT/HCPCS: 73562; 99212

== ENCOUNTER 2025-03-19 12:28 | Outpatient (AMB) | payer MEDICARE, SELFPAY ==
--- NOTE | 2025-03-19 12:38 | A.OFFVIS_ITS ---
Vital Signs 03/19/25 12:39 Height 5 ft 10 in Weight 230 lb BMI 33.0 Intake Visit Reasons: Left knee pain Intake Note: Emigdio is a 80 year old male who presents with complaints of intermittent discomfort in his left knee after undergoing left total knee replacement surgery several years ago. He denies any fevers or chills. He does not take any medicines for his discomfort. He denies any locking or giving way. Most of his discomfort is along the lateral aspect of his thigh. Allergies No Known Allergies Allergy (Verified 03/19/25 12:40) Medication List - Last Reconciled 03/19/25 by Alan Quintanilla MD amlodipine 10 mg PO DAILY aspirin 81 mg PO DAILY atorvastatin (Lipitor) 20 mg PO DAILY carvedilol 12.5 mg PO BID colchicine 0.6 mg PO DAILY losartan 50 mg PO DAILY metformin 500 mg PO BID tirzepatide (Mounjaro) 10 mg subcut QWEEK [facility] Surgical History (Updated 03/19/25 @ 12:46 by Chinyere Milton CMA) History of total right knee replacement (2019) History of total left knee replacement (2021) Social History Household Members: Spouse Housing: House Alcohol intake: never Patient Tobacco Use Status: Never used Tobacco service: Yes ([employer]) Current occupational status: retired Cognitive needs: No Hearing needs: No Vision needs: Yes Physical Exam Vital Signs: BMI result Body Mass Index 33.0 Const Other: Well-nourished well-developed very friendly male awake alert and oriented x3 in no acute distress Extrem Other: Left knee examination shows that the surgical incision is well healed, no erythema, minimal discomfort with range of motion, full active extension and flexion to 120 degrees, his patella tracks well Results Reviewed Results Reviewed: X-rays of the patient's left knee show a total knee arthroplasty in good position with no signs of loosening, no acute bony abnormalities Assessment & Plan Assessment & Plan (1) Left knee pain: Code(s): M25.562 - Pain in left knee Category: Medical Plan Mr. Zambrano presents with continued left knee pain after undergoing left total knee replacement surgery of unclear etiology. Thus, I will have him evaluated by Dr. Bhakta from our pain management department here at [facility] for possible nerve stimulation procedure. The patient will follow-up as instructed. I will see him back after that evaluation. Feel free to call me at any time should questions regarding his orthopedic management arise. I spent 21 minutes in reviewing the patient's records and imaging studies, seeing the patient and documenting in the medical record. Orders: Orders XR knee LT 3V Today M25.562 - Pain in left knee Referrals Pain Management Referral M25.562 - Pain in left knee Coding Level of Care Code Est Pt Level 3 (35658) Complex EM visit Add On G2211 Diagnoses Left knee pain M25.562
[2025-03-19 12:39] VITALS: BMI 33.0
--- OUTSIDE RECORDS SUMMARY | 2025-03-19 13:07 | XMS_ITS | Clinical Summary ---
Author Organization [facility] Address [address] [place] [id number] Phone Care Team Providers Care Drill Punch Operator Name Role Phone Stas Winston MD Primary Care Provider [phone] Allergies Active Allergy Reactions Criticality Noted Date Comments Dapagliflozin Unknown Medium 08/15/2022 Nausea dizziness Other Reaction(s): Not available dapagliflozin propanediol Empagliflozin Unknown Medium 12/08/2022 Frequency Other Reaction(s): Not available empagliflozin Jardiance Medications amLODIPine (NORVASC) 5 MG tablet Take 5 mg by mouth Active aspirin (ST CURTIS) 81 MG EC tablet Take 81 mg by mouth 08/27/19 22 Active atorvastatin (LIPITOR) 20 MG tablet Take 1 tablet by mouth 1 (one) time each day 11/01/19 23 Active carvedilol (COREG) 6.25 MG tablet Take 1 tablet by mouth in the morning and 1 tablet before bedtime. 11/02/19 23 Active cholecalcifer ol (VITAMIN D-3) 25 MCG (1000 UT) capsule Take 1,000 Units by mouth 09/29/19 21 Active metFORMIN (GLUCOPHAGE) 500 MG tablet TAKE 1 TABLET BY MOUTH AT BREAKFAST AND 2 TABLETS WITH DINNER 11/01/19 23 Active Mounjaro 10 MG/0.5ML solution auto-injector INJECT 10 MG SUBCUTANEOUSLY WEEKLY 09/04/19 25 Active losartan (COZAAR) 50 MG tablet Take 1 tablet (50 mg total) by mouth 1 (one) time each day 90 tablet 3 02/20/20 25 2025 Active losartan (COZAAR) 50 MG tablet Take 1 tablet (50 mg total) by mouth 1 (one) time each day 90 tablet 3 11/16/19 25 2024 Discontinued Active Problems Problem Noted Date Diagnosed Date Adenoma of left adrenal gland 11/13/2024 Bilateral carpal tunnel syndrome 12/11/2023 Former light tobacco smoker 01/24/2023 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 12/20/2022 Obstructive sleep apnea syndrome 07/18/2022 Overview (11/13/2024): Obstructive sleep apnea syndrome Stage 3a chronic kidney disease 06/02/2021 Vitamin D deficiency 06/05/2020 Aortic incompetence, non-rheumatic 04/21/2020 Overview (11/13/2024): 04/26 see echo 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 06/26/2017 Overview (11/13/2024): Open angle with borderline findings and low glaucoma risk in both eyes Lumbosacral spondylosis without myelopathy 04/27 Overview (11/13/2024): Lumbosacral spondylosis without myelopathy Anemia of renal disease 04/17/2015 Hypertension 11/02/2014 Encounters Date Type Department Care Team Description 02/19/2025 Orders Only [facility] [address] [place] [address] Tania Espino MA 02/10/2025 Orders Only [facility] [address] [place] [address] Brielle Nick MA Stage 3a chronic kidney disease (CMS-HCC) (Primary Dx); Anemia of renal disease; Secondary hyperparathyroidism of renal origin (CMS-HCC) from Last 3 Months Family History Medical History Relation Comments End stage renal failure on dialysis Brother Relation Status Comments Brother Social History Tobacco Use Types Packs/Day Years Used Date Smoking Tobacco: Former Cigarettes Passive Smoke Exposure: Never Smokeless Tobacco: Never Tobacco Cessation:Counseling Given: Not Answered Sex and Gender Information Value Date Recorded Sex Assigned at Not on file Legal Sex Male 9:16 AM MDT Gender Identity Not on file Sexual Orientation Not on file Last Filed Vital Signs Vital Sign Reading Time Taken Comments Blood Pressure 152/80 11/13/2024 8:49 AM EDT Pulse 87 11/13/2024 8:49 AM EDT Temperature - - Respiratory Rate - - Oxygen Saturation - - Inhaled Oxygen Concentration - - Weight 103 kg (228 lb) 11/13/2024 8:49 AM EDT Height 180.3 cm (5' 11 ) 11/13/2024 8:49 AM EDT Body Mass Index 31.8 11/13/2024 8:49 AM EDT Plan of Treatment Upcoming Encounters Date Type Department Care Team (Late st Contact Info) Description 06/16/2025 3:00 PM EST Office Visit [facility] [address] [place] [address] Ally Villanueva MD [address] [place] [address] Health Maintenance Due Date Last Done Comments Pneumococcal PPSV23/PCV13 65 + Years / Low and Medium Risk (2 of 3 - PCV20 or PCV21) 04/20/2016 04/20/2015 COVID-19 Vaccine ( - 2023-2 5 season) 2024 05/06/2021, 10/28/2020, 09/28/2020 Influenza Vaccine (#1) 2025 , 05/16/2019, 04/19/2018, Additional history exists Insurance Care Teams Drill Punch Operator Relationship Specialty Start Date End Date Stas Winston MD PCP - General 11/07/24
--- OUTSIDE RECORDS SUMMARY | 2025-03-19 13:07 | XMS_ITS | Clinical Summary ---
Author Organization [facility] Address [address] [place] [address] Care Team Providers Care Hat Block Bench Hand Name Role Phone Richard Garcia MD Primary Care Provider [phone] Medications metFORMIN HCl 625 MG Tab 0 02/10/2020 Active Lisinopril (PRINIVIL,ZESTR IL) 30 MG tablet 0 02/10/2020 Active Atorvastatin Calcium (LIPITOR) 80 MG tablet 0 02/10/2020 Active amLODIPine Besylate (NORVASC) 5 MG tablet 0 02/10/2020 Active Tobramycin-dexA METHasone (TOBRADEX) ophthalmic solution INSTILL 1 DROP INTO RIGHT EYE FOUR TIMES A DAY FOR 7 DAYS THEN TWICE A DAY FOR 7 DAYS. SHAKE WELL 5 0 06/25/2022 Active Dapagliflozin (Farxiga) 10 MG tablet TAKE 1 TABLET BY MOUTH EVERY DAY 30 0 07/19/2022 Active Lancets (OneTouch Delica Plus Foezpl72E) Misc 100 0 08/04/2022 Active Glucose Blood (OneTouch Verio) test strip 100 0 08/04/2022 Active guaiFENesin-Cod eine (ROBITUSSIN-AC) 100-10 MG/5ML liquid TAKE 5 ML BY MOUTH FOUR TIMES DAILY NEEDED 120 0 10/07/2022 Active Carvedilol (COREG) 6.25 MG tablet 180 0 11/01/2022 Active Empagliflozin (Jardiance) 10 MG tablet 90 0 11/02/2022 Active Triamterene-HCT Z (DYAZIDE) 37.5-25 MG per capsule 180 0 11/17/2022 Active COVID-19 At Home Antigen Test (QuickVue At-Home Covid-19 Test) Kit USE DIRECTED 8 0 12/06/2022 Active methylPREDNISol one (MEDROL DOSPAK) 4 MG tablet Take as directed 1 0 12/20/2022 Active Active Problems Problem Noted Date Diagnosed Date Bilateral temporomandibular joint pain-dysfuncti on syndrome 12/20/2022 Diabetes 02/10/2020 High blood pressure 02/10/2020 Benign paroxysmal positional vertigo of left ear 02/10/2020 Dizziness 02/10/2020 Family History Medical History Relation Name Comments Asthma Other asthma : Family History Diabetes Other diabetes mellit us : Family History Hypertension Other hypertension : Family History Relation Name Status Comments Other Social History Tobacco Use Types Packs/Day Years Used Date Smoking Tobacco: Never Assessed Comments:Smoking Status:Po garcia smoker Sex and Gender Information Value Date Recorded Sex Assigned at Not on file Legal Sex Male 3:35 PM EDT Gender Identity Not on file Sexual Orientation Not on file Last Filed Vital Signs Vital Sign Reading Time Taken Comments Blood Pressure 139/77 02/10/2020 1:49 PM EDT Sta nding Standing Pulse 86 02/10/2020 1:49 PM EDT Sitti ng Temperature - - Respiratory Rate - - Oxygen Saturation 98% 02/10/2020 1:50 PM EDT Inhaled Oxygen Concentration - - Weight - - Height - - Body Mass Index - - Plan of Treatment Health Maintenance Due Date Last Done Comments HA1C 1945 Hepatitis C Screening 1945 DTaP/Tdap/Td (1 - Tdap) 1965 Eye/Retina Exam 1965 GFR 1965 LDL Cholesterol 1965 Microalbumin 1965 Pneumococcal 50+ years (1 of 2 - PCV) 1966 Colon Cancer Screening 01/16/1992 Zoster (Shingrix) (1 of 2) 1997 RSV (1 - 1-dose 75+ series) 2022 COVID-19 Vaccine ( - 2023-2 5 season) 2024 Influenza (#1) 2025 HPV Vaccine (No Doses Required) Completed Hep A Aged Out No longer eligi ble based on patient's age to complete this topic Hep B Aged Out No longer eligi ble based on patient's age to complete this topic Hib Aged Out No longer eligi ble based on patient's age to complete this topic Meningococcal ACWY Aged Out No longer eligible based on patient's age to complete this topic Zoster (Zostavax) Discontinued Care Teams Hat Block Bench Hand Relationship Specialty Start Date End Date Richard Garcia MD [address] [facility] [address] [place] [address] PCP - General 03/13/23
--- OUTSIDE RECORDS SUMMARY | 2025-03-19 13:07 | XMS_ITS | Clinical Summary ---
Author Organization [facility] Address [address] [place] [address] Care Team Providers Care Off Track Betting Manager Name Role Phone Stas Winston MD Primary Care Provider Allergies Active Allergy Reactions Criticality Noted Date Comments Dapagliflozin 08/15/2022 Nausea dizziness Empagliflozin 12/08/2022 Frequency Medications Medication Sig Dispensed Refills Start Date End Date Status Ferrous Sulfate (SLOW RELEASE IRON PO) Take 65 mg by mouth daily. 0 Active Vitamin D, Cholecalciferol, 25 MCG (1000 UT) CAPS Take 1,000 Units by mouth daily. 60 capsule 11 09/29/2020 Active aspirin EC 81 MG EC tablet Take 1 tablet (81 mg total) by mouth 2 (two) times a day after meals. 80 tablet 0 08/27/2021 Active amoxicillin (AMOXIL) 500 MG tablet Take 4 tabs 1 hour prior to dental appointment 20 tablet 3 04/14/2022 Active Lancets (OneTouch Delica Plus Teowsk93B) MISC USE WITH METER TO TEST ONCE DAILY 100 each 3 08/04/2022 Active OneTouch Verio test strip USE WITH METER TO TEST ONCE DAILY 100 strip 3 08/04/2022 Active metFORMIN (GLUCOPHAGE) tablet 500 mg TAKE 1 TABLET BY MOUTH AT BREAKFAST AND 2 TABLETS WITH DINNER 270 tablet 3 10/31/2022 Active atorvastatin (LIPITOR) tablet 20 mg TAKE 1 TABLET BY MOUTH DAILY 90 tablet 3 10/31/2022 Active carvedilol (COREG) 6.25 MG tablet TAKE 1 TABLET BY MOUTH 2 TIMES A DAY. 60 tablet 11 11/01/2022 Active triamterene-hydroc hlorothiazide (DYAZIDE) 37.5-25 MG per capsule TAKE 1 CAPSULE BY MOUTH TWICE DAILY 180 capsule 3 11/17/2022 Active Additional Information Patient not taking.Reason: Other (PLEASE REMOVE PER PATIENT, ADVISED TO DISCONTINUE MEDICATION.), Reported on 12/05/2023 amLODIPine (NORVASC) tablet 5 mg Take 1 tablet (5 mg total) by mouth daily. 0 Active fluticasone (FLONASE) 50 MCG/ACT nasal spray spray or apply 1 spray inside Nose. 0 Active ibuprofen 400 MG tablet Take 1 tablet (400 mg total) by mouth. 0 06/21/2023 Active methylPREDNISolone (MEDROL DOSEPACK) 4 MG tablet TAKE 6 TABLETS ON DAY 1 DIRECTED ON PACKAGE AND DECREASE BY 1 TAB EACH DAY FOR A TOTAL OF 6 DAYS 0 05/09/2023 Active Active Problems Problem Noted Date Diagnosed Date Chest pain 05/28/2023 Former light tobacco smoker 01/24/2023 Obstructive sleep apnea 07/19/2022 Acute right-sided low back pain with sciatica Obesity (BMI 30.0-34.9) 08/17/2021 Stage 3a chronic kidney disease 06/02/2021 Vitamin D deficiency 06/05/2020 Nonrheumatic aortic valve insufficiency 04/22/20 Overview: 04/26 see echo Vertigo 01/27/2020 Lesion of face 12/18/2018 Acute pain of right knee 06/18/2018 Hypermetropia of both eyes 06/27/2017 Open angle with borderline f indings and low glaucoma risk in both eyes 06/27/2017 Benign paroxysmal positional vertigo due to bilateral vestibular disorder 06/16/2016 History of colonic polyps 01/26/2016 Lumbosacral spondylosis without myelopathy 04/28 Spinal stenosis, lumbar leslee on, without neurogenic claudication 04/28/2015 Allergic rhinitis 04/17/2015 Anemia, unspecified 04/17/2015 Adrenal benign neoplasm 04/17/2015 Overview: diagnosis December 2008 recommended followup yearly 24-hour urine free cortisol or dexamethasone 1 mg 11 PM and check a.m. cortisol normal less than 5 repeat imaging on occasion; Hypertension 11/02/2014 Diabetes 11/02/2014 Hyperlipemia 11/02/2014 Peripheral neuropathy 11/02/2014 Resolved Problems Problem Noted Date Diagnosed Date Resolved Date Primary snoring 01/24/2023 03/20/2023 Elevated serum creatinine 05/19/2015 Immunizations Name Administration Dates Next Due Covid-19 (Pfizer) Dilution Required 05/06/2021,0 10/28/2020,09/28/2020 Influenza Quad (Fluad) 0.5 m L >65Yrs (AIIV4) 05/12/2022,06/01/2021,05/29/2020 Influenza Trivalent (Fluad) 0.5mL (65 yrs &>) 05/16/2019,04/19/2018 Influenza Trivalent (Fluzone /Afluria) 5.0mL Multi-dose Vial 04/18/2017,06/16/2016,04/20/2015 Pneumococcal Conjugate PCV13 04/20/2015 Pneumococcal Polysaccharide PPSV23 05/13/2013, Td (Tenivac) 08/07/2000 Tdap 06/03/2011 Zostavax (Zoster Live) 05/17/2007 Family History Medical History Relation Name Comments COPD Brother 1 3 Diabetes Brother 1 3 X1 Liver disease Brother 1 3 COPD Brother 2 Hypertension Father Alzheimer's disease Mother Arthritis Mother Arthritis Sister 1 1 Alzheimer's disease Sister 2 5 Asthma Sister 2 5 X1 COPD Sister 2 5 Cancer Sister 2 5 Relation Name Status Comments Brother 1 3 Brother 2 Alive Father (Age 89) Natural ca uses Mother (Age 87) ALZHEIMER' S Sister 1 1 Alive Sister 2 5 Social History Tobacco Use Types Packs/Day Years Used Date Smoking Tobacco: Former Cigarettes 0.5 3 1 966 - 08/12/1980 Passive Smoke Exposure: Never Smokeless Tobacco: Never Tobacco Cessation:Counseling Given: Not Answered Alcohol Use Standard Drinks/Week Comments No 0 (1 standard drink = 0.6 oz pur e alcohol) Sex and Gender Information Value Date Recorded Sex Assigned at Male 10/06/2018 6:37 PM EST Gender Identity Male 03/30/2020 2:28 PM EDT Sexual Orientation Not on file Job Start Date Occupation Industry Not on file Not on file Not on file Last Filed Vital Signs Vital Sign Reading Time Taken Comments Blood Pressure 130/70 12/05/2023 1:37 PM EDT Pulse 92 12/05/2023 1:37 PM EDT Temperature 36.6 C (97.9 F) 05/29/2023 2:45 PM EDT Respiratory Rate 16 08/15/2023 2:42 PM EST Oxygen Saturation 97% 08/15/2023 2:42 PM EST Inhaled Oxygen Concentration - - Weight 114.8 kg (253 lb) 12/05/2023 1:37 PM EDT Height 180.3 cm (5' 11 ) 12/05/2023 1:37 PM EDT Body Mass Index 35.29 12/05/2023 1:37 PM EDT Plan of Treatment Health Maintenance Due Date Last Done Comments Hepatitis C Screening 1945 Diabetes: Foot Exam 1965 Shingrix-Zoster Vaccine (1 of 2) 07/12/2007 Colon Cancer Screening (Colonoscopy) 06/03/2015 06/03/2010 Diabetes: Eye Exam (No Retinopathy) 02/17/2020 02/16/2018 DTap / Tdap / Td (2 - Td or Tdap) 06/03/2021 06/03/2011, 08/07/2000 BMI Counseling 07/20/2021 07/20/2020 Depression Screening 07/20/2021 07/20/2020, 07/20/2020, 06/18/2018, Additional history exists Fall Risk Assessment 07/20/2021 07/20/2020, 07/20/20 20 Preventative Health Evaluation 07/20/2021 07/20/2020, 01/26/2016, 05/19/2015 RSV Adult > 60+ Yrs or (1 - 1-dose 75+ series) 2022 Hemoglobin A1C Due 11/28/2023 05/29/2023, 0 11/17/2022, 07/19/2022, Additional history exists Diabetes: Microalbumin Test 03/21/2024 08/1 12/2022, 04/01/2020, 09/09/2019, Additional history exists COVID-19 Vaccine ( season) 2024 05/06/2021, 10/28/2020, 09/28/2020 Influenza Vaccine (#1) 2025 3, 05/12/2022, 06/01/2021, Additional history exists Pneumococcal Vaccine Completed 03/20/2023, 04/20/2015, 05/13/2013, Additional history exists Hepatitis B Vaccines Aged Out No long er eligible based on patient's age to complete this topic RSV Ped < 20 months Aged Out No longe r eligible based on patient's age to complete this topic Medical Devices Implanted Type Area Director Of Product Design Device Identifier Shelf Expiration Date Model / Serial / Lot Cement Simplex P Radiopaque Full Dose Bone 10 Pack - [id number] - [id number] Implanted:Qty: 1 on 04/23/2020 by Alan Quintanilla MD at [facility] Right: Knee [employer] [id number] 09/06/2021 6191-1-010 / / [id number] Cement Simplex P Radiopaque Full Dose Bone 10 Pack - [id number] - [id number] Implanted:Qty: 1 on 04/23/2020 by Alan Quintanilla MD at [facility] Right: Knee [employer] [id number] 09/06/2021 6191-1-010 / / [id number] Baseplate Triathlon 7 Cemented Primary Tibial Knee - [id number] - [id number] Implanted:Qty: 1 on 04/23/2020 by Alan Quintanilla MD at [facility] Right: Knee [employer] [id number] 05/28/2024 5520-B-700 / / [id number] Component Triathlon 6 Posterior Stabilized Cemented Femoral - [id number] - [id number] Implanted:Qty: 1 on 04/23/2020 by Alan Quintanilla MD at [facility] Right: Knee [employer] [id number] 03/19/2024 5515-F-602 / / [id number] Triathlon Ps Insert - Size 7 10mm X3 - [id number] - [id number] Implanted:Qty: 1 on 04/23/2020 by Alan Quintanilla MD at [facility] Right: Knee [employer] [id number] 01/27/2024 5532-G-710 -E / / [id number] Component Triathlon 10mm 35mm Symmetric X3 Ptlar Knee - 198742 - [id number] Implanted:Qty: 1 on 04/23/2020 by Alan Quintanilla MD at [facility] Right: Knee [employer] [id number] 01/28/2024 5551-G-350 / / [id number] Peg Triathlon Modular Fix Distal Femur Knee - 360391 - [id number] Implanted:Qty: 1 on 04/23/2020 by Alan Quintanilla MD at [facility] Right: Knee [employer] [id number] 09/03/2024 5575-X-000 / / [id number] Knee Fem Ps Trthln Sz 6 Lt Stry-Howm 7882-A-540-534 741 - [id number] Implanted:Qty: 1 on 08/26/2021 by Alan Quintanilla MD at [facility] Left: Knee [employer] [id number] 04/07/2026 5515-F-601 / / [id number] Baseplate Triathlon Cmnt Stry-Howm 5631-Z-250-349 798 - [id number] Implanted:Qty: 1 on 08/26/2021 by Alan Quintanilla MD at [facility] Left: Knee [employer] [id number] 01/14/2024 5520-B-700 / / [id number] Knee Insert Tib Ps X3 Sz 7-9 Stry-Howm 6911-E-090-547 884 - [id number] Implanted:Qty: 1 on 08/26/2021 by Alan Quintanilla MD at [facility] Left: Knee [employer] [id number] 12/20/2025 5532-G-709 / / [id number] Knee Pat Asymmetric X3 L40w34ps Stry-Howm 4025-P-250-E-2 95198 - [id number] Implanted:Qty: 1 on 08/26/2021 by Alan Quintanilla MD at [facility] Left: Knee [employer] [id number] 09/18/2025 5551-G-320 -E / / [id number] Peg Fix Femoral Distal Stry-Howm 8870-Z-627-547 704 - [id number] Implanted:Qty: 1 on 08/26/2021 by Alan Quintanilla MD at [facility] Left: Knee [employer] [id number] 05/23/2025 5575-X-000 / / [id number] Cement Bone Surg Simplex Radiopq Stry-Howm 3519-1-615-114 092 - [id number] Implanted:Qty: 1 on 08/26/2021 by Alan Quintanilla MD at [facility] Left: Knee [employer] [id number] 10/05/2023 6191-1-010 / / [id number] Cement Bone Surg Simplex Radiopq Stry-Howm 5851-8-366-114 092 - [id number] Implanted:Qty: 1 on 08/26/2021 by Alan Quintanilla MD at [facility] Left: Knee [employer] [id number] 10/05/2023 6191-1-010 / / [id number] Advance Directives For more information, please contact: [phone] Latest Code Status on File Code Status Date Activated Date Inactivated Comments Full Code 05/28/2023 7:32 PM 05/29/2023 11:02 PM Th is code status was ascertained in the following way: discussion with patient . Code Status History Code Status Date Activated Date Inactivated Comments Full Code 08/26/2021 12:51 PM 08/31/2021 2:41 AM This code status was ascertained in the following way: discussion with patient . Full Code 08/26/2021 6:52 AM 08/26/2021 12:51 PM This code status was ascertained in the following way: discussion with patient . Full Code 04/23/2020 9:27 AM 04/26/2020 12:45 AM This code status was ascertained in the following way: per living will or healthcare instructions . Full Code 04/23/2020 7:01 AM 04/23/2020 9:27 AM This code status was ascertained in the following way: discussion with patient . Care Teams Off Track Betting Manager Relationship Specialty Start Date End Date Stas Winston MD PCP - General Family Medicine 03/26/14
== END 2025-03-19 12:58 | disposition home or self-care (01) ==
LOC: HO.HOS 12:28
PROVIDERS: Visit Provider Orthopaedic Surgery
DX: M25.562 Pain in left knee (principal)
CPT/HCPCS: 99213; G2211

== ENCOUNTER → 2025-03-19 12:30 | Outpatient (BNV) | payer MEDICARE, SELFPAY | PROVIDERS: Visit Provider Radiology Diagnostic Radiology | DX: M25.562 Pain in left knee (principal) | CPT/HCPCS: 73562 ==

== ENCOUNTER 2025-04-18 11:17 | Outpatient (AMB) | payer MEDICARE, SELFPAY ==
--- NOTE | 2025-04-18 11:20 | A.OFFVIS_ITS ---
Vital Signs 04/18/25 11:22 Height 5 ft 10 in Weight 210 lb BMI 30.1 BP 138/72 Blood Pressure Location Lt brachial Position Sitting Respiration 16 Pulse 90 Pulse Source Pulse Oximeter Pulse Oximetry (%) 98 Oxygen Delivery Method Room Air Intake Visit Reasons: Left Knee Pain Post Surgery Key Holder Required: No Accompanied by: Spouse Allergies No Known Allergies Allergy (Verified 04/18/25 11:23) Medication List - Last Reconciled 04/18/25 by Mariposa Alba LPN amlodipine 10 mg PO DAILY aspirin 81 mg PO DAILY atorvastatin (Lipitor) 20 mg PO DAILY carvedilol 12.5 mg PO BID colchicine 0.6 mg PO DAILY losartan 50 mg PO DAILY metformin 500 mg PO BID tirzepatide (Mounjaro) 10 mg subcut QWEEK HPI HPI Left Knee Pain Post Surgery: Details: History of Present Illness The patient is a 80-year-old male presenting with persistent knee pain following a total knee replacement. The knee replacement surgery was performed in 2021, and the patient reports that the pain began approximately six to seven months post-surgery. The pain is described as constant, with a severity of 9/10, reducing to 7/10 when at rest. The patient denies any structural issues such as locking or giving way of the knee, and the hardware is reported to be intact. The pain is localized to the left knee, particularly on the side, and is exacerbated by palpation. The patient has not used any medications specifically for the pain but has tried topical treatments such as Bengay and physical therapy, which were ineffective. He has not tried anti-inflammatory gels like Voltaren due to concerns about systemic effects, as advised by a previous physician. The patient has been advised to try diclofenac gel and lidocaine patches as potential treatments. Pain Description - Onset: Approximately six to seven months post-surgery - Quality: Constant pain - Severity: 9/10, reducing to 7/10 when at rest - Location: Left knee, particularly on the side - Exacerbating factors: Palpation - Relieving factors: None identified Physical Exam - Musculoskeletal: Tenderness on palpation of the left knee, particularly on the inferolateral side Pain Management - Affect: No specific impact on mood or psychological wellbeing discussed - Analgesia: No current pain medications used; pain level at 9/10, reducing to 7/10 when at rest - Adverse Effects: None reported from pain medications as none are currently used - Activities of Daily Living: No specific interference with daily activities discussed - Aberrant Drug Related Behaviors: None reported [facility] Medical History (Updated 04/14/25 @ 15:15 by Mariposa Alba LPN) Hypertension Diabetes Surgical History (Updated 03/19/25 @ 12:46 by Chinyere Milton CMA) History of total right knee replacement (2019) History of total left knee replacement (2021) Social History (Updated 03/19/25 @ 12:45 by Chinyere Milton CMA) Household Members: Spouse Housing: House Alcohol intake: never Patient Tobacco Use Status: Never used Tobacco service: Yes ([employer]) Current occupational status: retired Cognitive needs: No Hearing needs: No Vision needs: Yes Physical Exam Vital Signs: Last Vital Signs Pulse 90 04/18/25 11:22 Resp 16 04/18/25 11:22 BP 138/72 04/18/25 11:22 Pulse Ox 98 04/18/25 11:22 Oxygen Delivery Method Room Air 04/18/25 11:22 BMI result Body Mass Index 30.1 Assessment & Plan Assessment & Plan (1) Left knee pain: Code(s): M25.562 - Pain in left knee Category: Medical Plan Plan Patient was informed and verbally consented to the use of an ambient scribe for clinic note documentation during this visit. 1. Post-Surgical Knee Pain - Initiate treatment with diclofenac gel, available over the counter as Voltaren, to be applied to the affected area. - Consider lidocaine patches if diclofenac gel is ineffective. - Follow-up in four weeks to assess pain management efficacy. 2. Soft Tissue Irritation Around The Left Knee - Avoid invasive procedures near the knee hardware to prevent infection risk. - Educate patient on the use of topical treatments as a safer alternative. Discussion Notes I discussed with the patient the management of his post-surgical knee pain, emphasizing the use of topical treatments such as diclofenac gel and lidocaine patches as initial steps. We also talked about the potential risks of invasive procedures near the knee hardware and the importance of avoiding them to prevent infection. I advised a follow-up in four weeks to evaluate the effectiveness of the treatment plan and provided educational material on nerve stimulation as a future option if needed. Patient Instructions - Apply diclofenac gel to the affected knee area as directed. - If no improvement, try lidocaine patches as an alternative. - Avoid any invasive procedures near the knee hardware. - Schedule a follow-up appointment in four weeks to assess treatment progress. Medications: New diclofenac sodium 1% apply to single elbow, wrist or hand; for hand includes palm/fingers/back of hand 2 grams topical QID 100 grams 0RF Coding Level of Care Code New Pt Level 4 (25483) Diagnoses Left knee pain M25.562
[2025-04-18 11:22] VITALS: BP 138/72; PULSE 90; RESP 16; O2SAT 98; BMI 30.1
== END 2025-04-18 12:01 | disposition home or self-care (01) ==
PROVIDERS: Visit Provider Internal Medicine
DX: M25.562 Pain in left knee (principal)
CPT/HCPCS: 99204

== ENCOUNTER → 2025-04-18 11:17 | Outpatient (BNVA) | payer MEDICARE, SELFPAY | PROVIDERS: Visit Provider Internal Medicine | DX: M25.562 Pain in left knee (principal) | CPT/HCPCS: 99202 ==

== ENCOUNTER 2025-06-27 11:44 | Outpatient (AMB) | payer MEDICARE, SELFPAY ==
--- NOTE | 2025-06-27 11:48 | A.OFFVIS_ITS ---
Vital Signs 06/27/25 11:49 Height 5 ft 10 in Weight 211 lb BMI 30.3 BP 130/72 Blood Pressure Location Lt brachial Position Sitting Respiration 16 Pulse 85 Pulse Source Pulse Oximeter Pulse Oximetry (%) 98 Oxygen Delivery Method Room Air Intake Visit Reasons: follow up Extension Service Specialist In Charge Required: No Allergies No Known Allergies Allergy (Verified 06/27/25 11:51) Medication List - Last Reconciled 06/27/25 by Mariposa Alba LPN amlodipine 5 mg PO DAILY amlodipine 10 mg PO DAILY aspirin 81 mg PO DAILY atorvastatin (Lipitor) 20 mg PO DAILY carvedilol 12.5 mg PO BID colchicine 0.6 mg PO DAILY fluticasone propionate 50 mcg/actuation sprays intranasal metformin 500 mg PO BID tirzepatide (Mounjaro) 10 mg subcut QWEEK HPI HPI follow up: Details: History of Present Illness The patient is a 80-year-old individual presenting with knee pain following joint arthroplasty. The knee pain has persisted since the surgery in 2021, initially responding to therapy but later returning despite an eight-week course of physical therapy. The patient has tried topical ointments and patches for two weeks each without relief, indicating a deeper issue than initially anticipated. Pain Description - Onset: Pain has persisted since surgery in 2021. - Quality: Persistent pain not relieved by topical treatments. - Location: Left knee. - Exacerbating factors: Lack of response to physical therapy and topical treatments. Physical Exam - Appears afebrile. - Alert and oriented. - Mood and affect appropriate. - Follows and participates in conversation appropriately. Pain Management - Affect: The patient remains encouraged and not depressed, despite ongoing pain. - Analgesia: Topical ointments and patches were ineffective. - Activities of Daily Living: Pain limits activities the patient would like to do. [facility] Medical History (Updated 04/14/25 @ 15:15 by Mariposa Alba LPN) Hypertension Diabetes Surgical History (Updated 03/19/25 @ 12:46 by Chinyere Milton CMA) History of total right knee replacement (2019) History of total left knee replacement (2021) Social History (Updated 03/19/25 @ 12:45 by Chinyere Milton CMA) Household Members: Spouse Housing: House Alcohol intake: never Patient Tobacco Use Status: Never used Tobacco service: Yes ([employer]) Current occupational status: retired Cognitive needs: No Hearing needs: No Vision needs: Yes Physical Exam Vital Signs: Last Vital Signs Pulse 85 06/27/25 11:49 Resp 16 06/27/25 11:49 BP 130/72 06/27/25 11:49 Pulse Ox 98 06/27/25 11:49 Oxygen Delivery Method Room Air 06/27/25 11:49 BMI result Body Mass Index 30.3 Assessment & Plan Assessment & Plan (1) Left knee pain: Code(s): M25.562 - Pain in left knee Category: Medical Plan Plan Patient was informed and verbally consented to the use of an ambient scribe for clinic note documentation during this visit. 1. Knee Pain Following Joint Arthroplasty - Plan to proceed with diagnostic left genicular nerve blocks under ultrasound guidance. - If nerve blocks are positive, seek approval for radiofrequency ablation of the genicular nerves. - Await insurance authorization for both procedures. Discussion Notes I discussed with the patient the plan to proceed with diagnostic left genicular nerve blocks under ultrasound guidance. If these are positive, we will seek approval for radiofrequency ablation of the genicular nerves, pending insurance authorization. The patient was informed about the timeline, potential benefits, and the need for insurance approval. Patient Instructions - Await contact for scheduling of nerve block procedure. - Contact the office if there are any questions or if you do not hear back within a month. Coding Level of Care Code Est Pt Level 3 (73573) Diagnoses Left knee pain M25.562
[2025-06-27 11:49] VITALS: BP 130/72; PULSE 85; RESP 16; O2SAT 98; BMI 30.3
--- OUTSIDE RECORDS SUMMARY | 2025-06-27 12:33 | XMS_ITS | Clinical Summary ---
Author Organization [facility] Address [address] [place] [id number] Phone Care Team Providers Care Phys Asst Name Role Phone Stas Winston MD Primary Care Provider [phone] Allergies Active Allergy Reactions Criticality Noted Date Comments Dapagliflozin Unknown Medium 08/15/2022 Nausea dizziness Other Reaction(s): Not available dapagliflozin propanediol Empagliflozin Unknown Medium 12/08/2022 Frequency Other Reaction(s): Not available empagliflozin Jardiance Medications amLODIPine (NORVASC) 5 MG tablet Take 5 mg by mouth A ctive aspirin (ST CURTIS) 81 MG EC tablet Take 81 mg by mouth 2 Active atorvastatin (LIPITOR) 20 MG tablet Take 1 tablet by mouth 1 (one) time each day 3 Active carvedilol (COREG) 6.25 MG tablet Take 1 tablet by mouth in the morning and 1 tablet before bedtime. 3 Active cholecalcifero l (VITAMIN D-3) 25 MCG (1000 UT) capsule Take 1,000 Units by mouth 1 Active metFORMIN (GLUCOPHAGE) 500 MG tablet TAKE 1 TABLET BY MOUTH AT BREAKFAST AND 2 TABLETS WITH DINNER 3 Active Mounjaro 10 MG/0.5ML solution auto-injector INJECT 10 MG SUBCUTANEOUSLY WEEKLY 5 Active losartan (COZAAR) 50 MG tablet Take 1 tablet (50 mg total) by mouth 1 (one) time each day 90 tablet 3 5 026 Active Active Problems Problem Noted Date Diagnosed [...] Encounters Date Type Department Care Team Description 06/01/2025 Orders Only [facility] Nephrology [place] [address] [address] [address] Brielle Nick MA Stage 3a chronic kidney disease (Primary Dx); Anemia of renal disease; Secondary hyperparathyroidism of renal origin from Last 3 Months Family History Medical [...] Upcoming Encounters Date Type Department Care Team ([facility] st Contact Info) Description 10/01/2025 8:40 AM EST Office Visit [facility] Nephrology - [place] [address] [place] [address] Ally Villanueva MD [address] [place] [address] Health Maintenance Due Date Last Done Comments Diabetic Foot Exam 1955 Ophthalmology Exam 1955 Pneumococcal PPSV23/PCV13 65 + Years / High and Highest Risk (2 of 4 - PPSV23, PCV20, or PCV21) 06/15/2015 04/20/2015 COVID-19 Vaccine (4 - 2024-2 6 season) 2025 05/06/2021, 10/28/2020, 09/28/2020 Influenza Vaccine (#1) 2025 , 05/16/2019, 04/19/2018, Additional history exists Insurance [facility] MGD Care Teams Phys Asst Relationship Specialty Start Date End Date Stas Winston MD [address] [facility] [address] [place] [address] PCP - General 06/03/25
--- OUTSIDE RECORDS SUMMARY | 2025-06-27 12:34 | XMS_ITS | Clinical Summary ---
Author Organization [facility] Address [address] [place] [address] Care Team Providers Care Supervisor Green End Department Name Role Phone Stas Winston MD Primary Care Provider [phone] Allergies Active Allergy Reactions Criticality Noted Date Comments Dapagliflozin Unknown/Patient and Family Unable to Define Medium 08/15/2022 Nausea dizziness Empagliflozin Unknown/Patient and Family Unable to Define Medium 12/08/2022 Frequency Medications amLODIPine (NORVASC) 10 MG tablet Take 1 tablet by mouth daily. 07/05/2023 Active aspirin enteric coated (ECOTRIN LOW STRENGTH) 81 MG EC tablet Take 81 mg by mouth. Active atorvastatin (LIPITOR) 20 MG tablet Take 1 tablet by mouth daily. Active carvedilol (COREG) 6.25 MG tablet Take 6.25 mg by mouth 2 times a day. Active colchicine (COLCRYS) 0.6 mg tablet Take 0.6 mg by mouth. Active metFORMIN (GLUCOPHAGE) 1000 MG tablet Take 1,000 mg by mouth. Active Active Problems Problem Noted Date Diagnosed Date Bilateral carpal tunnel syndrome 12/11/2023 Immunizations Immunization Administration Dates Next Due Covid-19 MRNA Vaccine - Pfizer 12+ (Purple Cap) 05/06/2021 Social History Tobacco Use Types Packs/Day Years Used Date Smoking Tobacco: Unknown Tobacco Cessation:Counseling Given: Not Answered Sex and Gender Information Value Date Recorded Sex Assigned at Not on file Legal Sex Male 11:25 AM EDT Gender Identity Not on file Sexual Orientation Not on file Last Filed Vital Signs Vital Sign Reading Time Taken Comments Blood Pressure 126/66 06/26/2024 2:55 PM EST Pulse 64 06/26/2024 2:55 PM EST Temperature 36.6 C (97.8 F) 06/26/2024 2:55 PM EST Respiratory Rate 15 06/26/2024 2:55 PM EST Oxygen Saturation 98% 06/26/2024 2:55 PM EST Inhaled Oxygen Concentration - - Weight 109 kg (240 lb) 06/26/2024 2:55 PM EST Height 180.3 cm (5' 11 ) 06/26/2024 2:55 PM EST Body Mass Index 33.47 06/26/2024 2:55 PM EST Plan of Treatment Health Maintenance Due Date Last Done Comments Advance Care Planning 1945 Hepatitis C Virus Screening 1945 DTaP/Tdap/Td Vaccines (1 - Tdap) 1966 Pneumococcal Vaccines 50+ (1 of 1 - PCV) 1997 Zoster (Shingles) Vaccine (1 of 2) 1997 RSV Vaccine 50 years and older and Patients (1 - 1-dose 75+ series) 2022 Influenza Vaccine 03/07/2025 04/23/2024, , 05/25/2023, Additional history exists COVID-19 Vaccine ( season) 2025 05/01/2024, 07/04/2023, 04/27/2022, Additional history exists Hemoglobin A1C Discontinued 05/29/2023, 03/2022, 04/01/2020 Hepatitis B Vaccines Aged Out No long er eligible based on patient's age to complete this topic Goals Goal Patient Goal Type Associated Problems Recent Progress Patient-Stated? Author OT LTGs Occupational Therapy On track(2022 6:48 PM EST) Jacque Peres OT Note: Pt. Will have improved L wrist AROM to Ext/Flex = 60-70, FA sup/pro=WNL without pain to position hand for prehension tasks 07/13/2023: in progress Pt. Will have improved L hand carrier blower strength to by at least 30-40# in order to securely carrier blower/lift/carry/manage I/ADL tasks 07/13/2023: 1.5 lbs, in progress Pt. Will be able to open containers without symptoms in order to complete housework 07/13/2023: in progress Pt. Will be able to push up from chair without symptoms to transfer to in order to complete I/ADLs 07/13/23: reports is able to push up but compensates with R hand Pt. Will improve score on Quick Dash to 20-25 to reflect gain in comfort/function. 07/13/23: 68.2 LTG length: 10 wks Insurance [facility] MED[facility] Care Teams Supervisor Green End Department Relationship Specialty Start Date End Date Stas Winston MD PCP - General Family Medicine 05/09/23
--- OUTSIDE RECORDS SUMMARY | 2025-06-27 12:34 | XMS_ITS | Encounter Summary ---
Author Organization [facility] Address [address] [place] [address] Care Team Providers Care Paving Block Cutter Name Role Phone Stas Winston MD Primary Care Provider [phone] Encounter Details Date Type Department Care Team (Late st Contact Info) Description 09/24/2024 Lab Requisition [facility] Main Lab [address] [place] [address] Stas Winston MD [address] [phone] Chronic kidney disease, stage 3a (CMS/HCC V24, CMS/HCC V28) Social History Tobacco Use Types Packs/Day Years Used Date Smoking Tobacco: Former Cigarettes 0.5 15 0 08/07/1965 - 08/12/1980 Passive Smoke Exposure: Past Smokeless Tobacco: Never Alcohol Use Standard Drinks/Week Comments No 0 (1 standard drink = 0.6 oz pur e alcohol) Sex and Gender Information Value Date Recorded Sex Assigned at Not on file Legal Sex Male 5:27 PM EST Gender Identity Not on file Sexual Orientation Not on file documented as of this encounter Plan of Treatment Upcoming Encounters Date Type Department Care Team (Late st Contact Info) Description 08/19/2025 1:30 PM EST Office Visit Pulmonology - [address] [phone] Isaiah Joy MD [address] [place], [place] [phone] documented as of this encounter Procedures Procedure Name Priority Date/Time Associated Diagnosis Comments CBC WITH AUTO DIFFERENTIAL Routine 09/24/2024 2:58 PM EST Chronic kidney disease, stage 3a (CMS/HCC) IRON AND TIBC Routine 09/24/2024 2:58 PM EST Chronic kidney disease, stage 3a (CMS/HCC) CBC AND DIFFERENTIAL Routine 09/24/2024 2:58 PM EST Chronic kidney disease, stage 3a (CMS/HCC) COMPREHENSIVE METABOLIC PANEL Routine 09/24/2024 2:58 PM EST Chronic kidney disease, stage 3a (CMS/HCC) BASIC METABOLIC PANEL Routine 09/24/2024 2:58 PM EST Chronic kidney disease, stage 3a (CMS/HCC) documented in this encounter Results * (ABNORMAL) CBC auto differential (09/24/2024 2:58 PM EST) WBC 6.7 4.0 - 10.5 K/mcL LAB HEMETOLOGY METHOD 09/24/2024 9:00 PM [facility] RBC 4.02(L) 4.70 - 6.00 M/mcL LAB HEMETOLOGY METHOD 09/24/2024 9:00 PM [facility] Hemoglobin 13.0(L) 13.5 - 18.0 g/dL LAB HEMETOLOGY METHOD 09/24/2024 9:00 PM [facility] Hematocrit 38.2(L) 40.0 - 54.0 % LAB HEMETOLOGY METHOD 09/24/2024 9:00 PM [facility] MCV 95.0 78.0 - 100.0 FL LAB HEMETOLOGY METHOD 09/24/2024 9:00 PM [facility] MCH 32.3 25.0 - 33.0 pcg LAB HEMETOLOGY METHOD 09/24/2024 9:00 PM [facility] MCHC 34.0 32.0 - 36.0 g/dL LAB HEMETOLOGY METHOD 09/24/2024 9:00 PM [facility] RDW 15.0 12.1 - 17.7 % LAB HEMETOLOGY METHOD 09/24/2024 9:00 PM [facility] Platelets 242 150 - 450 K/mcL LAB HEMETOLOGY METHOD 09/24/2024 9:00 PM [facility] MPV 8.2 7.4 - 11.4 FL LAB HEMETOLOGY METHOD 09/24/2024 9:00 PM [facility] Neutrophils Relative 64.8 44.0 - 74.0 % LAB HEMETOLOGY METHOD 09/24/2024 9:00 PM [facility] Lymphocytes Relative 22.4 20.0 - 48.0 % LAB HEMETOLOGY METHOD 09/24/2024 9:00 PM [facility] Monocytes Relative 8.7 2.0 - 12.0 % LAB HEMETOLOGY METHOD 09/24/2024 9:00 PM [facility] Eosinophils Relative 3.2 0.0 - 6.0 % LAB HEMETOLOGY METHOD 09/24/2024 9:00 PM [facility] Basophils Relative 0.9 0.0 - 2.0 % LAB HEMETOLOGY METHOD 09/24/2024 9:00 PM [facility] Neutrophils Absolute 4.30 1.80 - 7.80 K/mcL LAB HEMETOLOGY METHOD 09/24/2024 9:00 PM [facility] Lymphocytes Absolute 1.50 1.00 - 3.20 K/mcL LAB HEMETOLOGY METHOD 09/24/2024 9:00 PM [facility] Monocytes Absolute 0.60 0.00 - 0.80 K/mcL LAB HEMETOLOGY METHOD 09/24/2024 9:00 PM [facility] Eosinophils Absolute 0.20 0.00 - 0.50 K/mcL LAB HEMETOLOGY METHOD 09/24/2024 9:00 PM EST [facility] Basophils Absolute 0.10 0.00 - 0.20 K/mcL LAB HEMETOLOGY METHOD 09/24/2024 9:00 PM EST [facility] Blood Venous blood specimen / Unknown 09/24/2024 2:58 PM EST 09/24/2024 8:23 PM EST us Stas Winston MD LAB BLOOD ORDERABLES Final Resul t [facility] [address] [place] [address], [place] [phone] * Comprehensive metabolic panel (09/24/2024 2:58 PM EST) Sodium 145 135 - 145 mmol/L LAB CHEMISTRY METHOD 09/24/2024 9:12 PM [facility] Potassium 4.2 3.5 - 5.1 mmol/L LAB CHEMISTRY METHOD 09/24/2024 9:12 PM [facility] Chloride 105 98 - 107 mmol/L LAB CHEMISTRY METHOD 09/24/2024 9:12 PM [facility] CO2 28 24 - 32 mmol/L LAB CHEMISTRY METHOD 09/24/2024 9:12 PM [facility] Anion Gap 12 5 - 14 LAB CHEMISTRY METHOD 09/24/2024 9:12 PM [facility] Glucose 81 70 - 199 mg/dL LAB CHEMISTRY METHOD 09/24/2024 9:12 PM [facility] BUN 15 9 - 20 mg/dL LAB CHEMISTRY METHOD 09/24/2024 9:12 PM [facility] Creatinine 1.20 0.70 - 1.30 mg/dL LAB CHEMISTRY METHOD 09/24/2024 9:12 PM [facility] eGFR 62 >=60 mL/min/1. 73m2 LAB CHEMISTRY METHOD 09/24/2024 9:12 PM EST [facility] Comment:Calculation based on the Chronic Kidney Disease Epidemiology Collaboration (CKD-EPI) equation refit without adjustment for race. BUN/Creatinine Ratio 12.5 12.0 - 20.0 LAB CHEMISTRY METHOD 09/24/2024 9:12 PM EST [facility] Calcium 9.6 8.4 - 10.2 mg/dL LAB CHEMISTRY METHOD 09/24/2024 9:12 PM EST [facility] AST (SGOT) 12 5 - 40 unit/L LAB CHEMISTRY METHOD 09/24/2024 9:12 PM [facility] ALT (SGPT) 11 7 - 52 unit/L LAB CHEMISTRY METHOD 09/24/2024 9:12 PM [facility] Alkaline Phosphatase 96 34 - 104 unit/L LAB CHEMISTRY METHOD 09/24/2024 9:12 PM EST [facility] Total Protein 6.8 6.4 - 8.5 g/dL LAB CHEMISTRY METHOD 09/24/2024 9:12 PM EST [facility] Albumin 4.5 3.5 - 5.0 g/dL LAB CHEMISTRY METHOD 09/24/2024 9:12 PM EST [facility] Total Bilirubin 0.9 0.3 - 1.0 mg/dL LAB CHEMISTRY METHOD 09/24/2024 9:12 PM EST [facility] Blood Venous blood specimen / Unknown 09/24/2024 2:58 PM EST 09/24/2024 8:23 PM EST us Stas Winston MD LAB BLOOD ORDERABLES Final Resul t [facility] [address] [place] [address], [place] [phone] * Basic metabolic panel (09/24/2024 2:58 PM EST) Sodium 145 135 - 145 mmol/L LAB CHEMISTRY METHOD 09/24/2024 9:12 PM [facility] Potassium 4.2 3.5 - 5.1 mmol/L LAB CHEMISTRY METHOD 09/24/2024 9:12 PM [facility] Chloride 105 98 - 107 mmol/L LAB CHEMISTRY METHOD 09/24/2024 9:12 PM [facility] CO2 28 24 - 32 mmol/L LAB CHEMISTRY METHOD 09/24/2024 9:12 PM [facility] Anion Gap 12 5 - 14 LAB CHEMISTRY METHOD 09/24/2024 9:12 PM [facility] Glucose 81 70 - 199 mg/dL LAB CHEMISTRY METHOD 09/24/2024 9:12 PM [facility] BUN 15 9 - 20 mg/dL LAB CHEMISTRY METHOD 09/24/2024 9:12 PM [facility] Creatinine 1.20 0.70 - 1.30 mg/dL LAB CHEMISTRY METHOD 09/24/2024 9:12 PM [facility] eGFR 62 >=60 mL/min/1. 73m2 LAB CHEMISTRY METHOD 09/24/2024 9:12 PM [facility] Comment: Calculation based on the Chronic Kidney Disease Epidemiology Collaboration (CKD-EPI) equation refit without adjustment for race. Calculation based on the Chronic Kidney Disease Epidemiology Collaboration (CKD-EPI) equation refit without adjustment for race. BUN/Creatinine Ratio 12.5 12.0 - 20.0 LAB CHEMISTRY METHOD 09/24/2024 9:12 PM [facility] Calcium 9.6 8.4 - 10.2 mg/dL LAB CHEMISTRY METHOD 09/24/2024 9:12 PM [facility] Blood Venous blood specimen / Unknown 09/24/2024 2:58 PM EST 09/24/2024 8:23 PM EST us Stas Winston MD LAB BLOOD ORDERABLES Final Resul t Performing Organization Address City/[facility]/ZIP Co de Phone Number [facility] [address] [place] [address], [place] [phone] * Iron and TIBC (09/24/2024 2:58 PM EST) Iron 83 49 - 181 mcg/dL LAB CHEMISTRY METHOD 09/24/2024 9:12 PM EST [facility] UIBC 205 155 - 355 mcg/dL LAB CHEMISTRY METHOD 09/24/2024 9:12 PM EST [facility] TIBC 288 250 - 450 mcg/dL LAB CHEMISTRY METHOD 09/24/2024 9:12 PM EST [facility] Iron Saturation 29 20 - 45 % LAB CHEMISTRY METHOD 09/24/2024 9:12 PM EST [facility] Blood Venous blood specimen / Unknown 09/24/2024 2:58 PM EST 09/24/2024 8:23 PM EST us Stas Winston MD LAB BLOOD ORDERABLES Final Resul t Performing Organization Address City/[facility]/ZIP Co de Phone Number [facility] [address] [place] [address], [place] [phone] documented in this encounter Visit Diagnoses Diagnosis Chronic kidney disease, stage 3a (CMS/HCC V24, CMS/HCC V28) documented in this encounter Care Teams Paving Block Cutter Relationship Specialty Start Date End Date Stas Winston MD [address] [place] [id number] PCP - General Family Medicine 08/15/24 documented as of this encounter
--- OUTSIDE RECORDS SUMMARY | 2025-06-27 12:34 | XMS_ITS | Clinical Summary ---
Author Organization [facility] Address [address] [place] [address] Care Team Providers Care Manager Utilities Name Role Phone Stas Winston MD Primary Care Provider [phone] Allergies Active Allergy Reactions Criticality Noted Date [...] 3 04/14/2022 Active Lancets (OneTouch Delica Plus [id number]) MISC USE WITH METER TO TEST ONCE [...] history exists COVID-19 Vaccine ( season) 2025 05/06/2021, 10/28/2020, 09/28/2020 Influenza Vaccine [...] this topic Medical Devices Implanted Type Area Map Compiler Device Identifier Shelf Expiration Date Model / Serial / Lot Cement Simplex P Radiopaque Full Dose Bone 10 Pack - [id number] - [id number] Implanted:Qty: 1 on 04/23/2020 by Alan Quintanilla MD at [facility] Right: Knee [employer] [id number] 09/06/2021 6191-1-010 / / [id number] Cement Simplex P Radiopaque Full Dose Bone 10 Pack - [id number] - [id number] Implanted:Qty: 1 on 04/23/2020 by Alan Quintanilla MD at [facility] Right: Knee [employer] [id number] 09/06/2021 6191-1-010 / / [id number] Baseplate Triathlon 7 Cemented Primary Tibial Knee - 144232 - [id number] Implanted:Qty: 1 on 04/23/2020 by Alan Quintanilla MD at [facility] Right: Knee [employer] [id number] 05/28/2024 5520-B-700 / / [id number] Component Triathlon 6 Posterior Stabilized Cemented Femoral - 540926 - [id number] Implanted:Qty: 1 on 04/23/2020 by Alan Quintanilla MD at [facility] Right: Knee [employer] [id number] 03/19/2024 5515-F-602 / / [id number] Triathlon Ps Insert - Size 7 10mm X3 - 192403 - [id number] Implanted:Qty: 1 on 04/23/2020 by Alan Quintanilla MD at [facility] Right: Knee [employer] [id number] 01/27/2024 5532-G-710 -E / / [id number] Component Triathlon 10mm 35mm Symmetric X3 Ptlar Knee - 877482 - [id number] Implanted:Qty: 1 on 04/23/2020 by Alan Quintanilla MD at [facility] Right: Knee [employer] [id number] 01/28/2024 5551-G-350 / / [id number] Peg Triathlon Modular Fix Distal Femur Knee - 005291 - [id number] Implanted:Qty: 1 on 04/23/2020 by Alan Quintanilla MD at [facility] Right: Knee [employer] [id number] 09/03/2024 5575-X-000 / / [id number] Knee Fem Ps Trthln Sz 6 Lt Stry-Howm 3319-V-096-534 741 - [id number] Implanted:Qty: 1 on 08/26/2021 by Alan Quintanilla MD at [facility] Left: Knee [employer] [id number] 04/07/2026 5515-F-601 / / [id number] Baseplate Triathlon Cmnt Stry-Howm 1673-E-303-349 798 - [id number] Implanted:Qty: 1 on 08/26/2021 by Alan Quintanilla MD at [facility] Left: Knee [employer] [id number] 01/14/2024 5520-B-700 / / [id number] Knee Insert Tib Ps X3 Sz 7-9 Stry-Howm 9232-I-156-547 884 - [id number] Implanted:Qty: 1 on 08/26/2021 by Alan Quintanilla MD at [facility] Left: Knee [employer] [id number] 12/20/2025 5532-G-709 / / [id number] Knee Pat Asymmetric X3 [id number] Stry-Howm 8778-S-000-E-2 62036 - [id number] Implanted:Qty: 1 on 08/26/2021 by Alan Quintanilla MD at [facility] Left: Knee [employer] [id number] 09/18/2025 5551-G-320 -E / / [id number] Peg Fix Femoral Distal Stry-Howm 8640-A-600-547 704 - [id number] Implanted:Qty: 1 on 08/26/2021 by Alan Quintanilla MD at [facility] Left: Knee [employer] [id number] 05/23/2025 5575-X-000 / / [id number] Cement Bone Surg Simplex Radiopq Stry-Howm 6517-5-771-114 092 - [id number] Implanted:Qty: 1 on 08/26/2021 by Alan Quintanilla MD at [facility] Left: Knee [employer] [id number] 10/05/2023 6191-1-010 / / [id number] Cement Bone Surg Simplex Radiopq Stry-Howm 7655-5-923-114 092 - [id number] Implanted:Qty: 1 on 08/26/2021 by Alan Quintanilla MD at [facility] Left: Knee [employer] [id number] 10/05/2023 6191-1-010 / / [id number] Advance Directives For more information, please contact: [phone] Latest Code Status on File Code Status [...] way: discussion with patient . Care Teams Manager Utilities Relationship Specialty Start Date End Date Stas Winston MD PCP - General Family Medicine 03/26/14
--- OUTSIDE RECORDS SUMMARY | 2025-06-27 12:34 | XMS_ITS | Continuity of Care Document ---
Author Organization [place] - [place] Juanjose Lau catrachitaashley, [place]_[id number] TOWER Address [address] [facility] [address] [place] [address] Care Team Providers Care Fashion Patternmaker Name Role Phone GUICHO COVINGTON Vocal Artist Assessment Encounter Date Assessment Date Assessment LastModified by Organization Details LastModified Time 05/19/2025 05/19/2025 Reminders 1. Have you reviewed all current prescriptions and noted which they have discontinued with the patient? Reviewed with patient 2. Have you asked the patient if they are experiencing any new or recurring issues with bladder control? Reviewed with patient 3. Have you asked the patient about their current physical fitness routine and goals? 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 #4 diabetes doing great current A1c is 5.0 weight loss consistent with use of Mounjaro Patient will continue current medications return to office in 4 months return to office for COVID-vaccine flu shot given left deltoid queenie Not available 05/19/2025 14:50:25 Plan of Treatment Reminders Order Date Submit Date Provider Last Modified By Organization Details Last Modified Time Details Appointments Office Visit 2025 02:00P Ascencion Winston MD Not available Not available Not available Lab glucose , fasting , fingers tick, blood (point of care) [address]_[email or web address]_1 [address] [place], [address], [place], [address], 05/19/2025 14:40:45 HbA1c (hemogl obin A1c), blood [address] [facility]_ctcma_fm_1 [address] [place], [address], [place], [address], 05/19/2025 14:40:45 lipid panel, serum [email or web address]_1 [address] [place], [address], [place], [address], 05/26/2025 09:00:58 BMP, serum or plasma [email or web address]_ctcma_fm_1 [address] [place], [address], [place], [address], 05/26/2025 09:00:58 Referral None recorde d. Procedures None recorde d. Surgeries None recorde d. Imaging None recorde d. Medication Orders None recorde d. Patient TargetsNo targets recorded. Patient Instructions Encounter Date Encounter Id Patient Instructions Last Modified By Organization Details Last Modified Time 05/19/2025 [id number] well visit, over 65: care instructions queenie Not available 05/19/2025 14:40:44 preventing falls : care instructions queenie Not available 05/19/2025 14:40:45 advance directiv es: care instructions queenie Not available 05/19/2025 14:40:45 To promote good health please follow these recommendations: Diet, Physical Activity and Healthy Weight: -Eat a diet low in trans and saturated fats and high in fiber, fruits and vegetables -Take 7135-6946 mg of calcium through diet and supplements -Engage in regular physical activity and weight bearing exercise -Aim to achieve and maintain ideal body mass index Tobacco and Alcohol Use: -Don't smoke or use other tobacco products -Avoid excessive alcohol intake Medications: -If you use any medications (prescriptions, kxvw-iir-yoxatwg, supplements, herbal), always do so as directed by your health care provider -Avoid misuse of any substances in a manner that is not in accordance with appropriate use Safety: -Use seat belts whenever in the car -Use sunscreen regularly to reduce the risk of skin cancer -Test smoke detectors and CO detectors every 6 months -Remove loose rugs and use hand rails on steps and in bath Cognition: -Being intellectually engaged may benefit the brain. Lots of activities can keep your mind active. For example, read books and magazines. Play games. Take or teach a class. Learn a new skill or hobby. Work or volunteer. -People who engage in meaningful activities, like volunteering or hobbies, say they feel happier and healthier. Vaccinations: -Get your yearly influenza vaccine and follow all immunization recommendations outlined in your personal wellness plan. [email or web address] Not available 05/19/2025 10:37:08 Reason for Referral None Reported. Results Created Date Observation Date Name Description Value Unit Range Abnormal Flag Note LastModifiedBy Organization Detail LastModifiedTime 05/19/2005/19/2025 HbA1c (hemo globi n A1c), blood HbA1C 5.0 Not [address] [facility]_ctcma_f m_[address] [place] [address], [place], [address], 05/19/2025 14:15:28 05/19/2005/19/2025 gluco se, fasti ng, finge rstic k, blood (poin t of care) glucose 88 mg/dL 65-99 Not Available Ct_ctcma_f m_1 [address] [place] [address], [place], [address], 05/19/2025 14:14:55 Result Notes None recorded. 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 diagnosis December 2008 recommend ed followup yearly 24-hour urine free cortisol or dexametha sone 1 mg 11 PM and check a.m. 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 Not Available [facility] 3 20:42:09 Spinal stenosis of lumbar region 57514242 Active 2014 Spinal stenosis, lumbar region, without neurogeni c claudicat milad Winston MD [address] [place] [address], [address] Floor, [place], [address] , [place] [facility] 3 12:01:04 History of polyp of colon 649455836 Active 2015 History of colonic polyps Not Available [facility] 3 20:42:10 Benign paroxysma l positiona l vertigo 776927797 Active 2015 Benign paroxysma l positiona l vertigo due to bilateral vestibula r disorder Not Available [facility] 3 20:42:10 Bilateral hyperopia of eyes 74067443395 9100 Active 2016 Hypermetr opia of both eyes Not Available [facility] 3 20:42:09 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 1724641145 Active 2016 Open angle with borderlin e findings and low glaucoma risk in both eyes Not Available [facility] 3 20:42:10 Pain of knee region 8868300382 Active 2017 Acute pain of right knee Not Available [facility] 3 20:42:09 Lesion of face 595888219 Active 2018 Lesion of face Not Available [facility] 3 20:42:09 Vertigo 851844030 Active 2019 Vertigo Not Available [facility] 3 20:42:10 Aortic incompete nce, non-rheum atic 403459544 Active 2019 Nonrheuma tic aortic valve insuffici ency - Overview: Formattin g of this note might be different from the original. 04/26 see echo echo 08/28 no AI or Stas Winston MD [address] [place] [address], [address] [place] [address], [place], [address] , [place] - [place] [facility] 3 11:51:02 Vitamin D deficienc y 30036722 Active 2019 Vitamin D deficienc y Not Available [facility] 3 20:42:10 Chronic kidney disease stage 3A 376562169 Active 2020 Stage 3a chronic kidney disease Stas Winston MD [address] [place] [address], [address] [place] [address], [place], [address] , [place] [facility] 5 14:33:36 Obese class I 29758316887 4107 Active 2021 Obesity (BMI 30.0-34.9 ) Not Available [facility] 3 20:42:09 Acute back pain with sciatica 264411435 Active 2021 Acute right-billy ed low back pain with sciatica Stas Winston MD [address] [place] [address], [address] [place] [address], [place], [address] , [place] [facility] 3 11:59:59 Obstructi ve sleep apnea syndrome 18455007 Active 2021 Obstructi ve sleep apnea syndrome Stas Winston MD [address] [place] [address], [address] , [place] [facility] 5 14:33:10 Increased frequency of urination 075843908 Active 2022 Stas Winston MD [address] [place] [address], [address] , [place] - [facility] 3 18:38:20 Jaw pain 647571716 Active 2022 Stas Winston MD [address] [place] [address], [address] , [place] [facility] 3 12:19:49 Pain in fingers of bilateral hands 55489955537 220559 Active 2023 Stas Winston MD [address] [place] [address], [address] [place] [address] , [place] [facility] 4 16:43:15 Essential hypertens ion 10960790 Active 2023 Stas Winston MD [address] [place] [address], [address] [place] [address] , [place] [facility] 4 14:04:17 Bilateral pain of joint of hands 18459128885 860134 Active 2023 Stas Winston MD [address] [place] [address], [address] [place] [address] , [place] [facility] 4 21:08:22 Swelling of lower leg 925912745 Active 2023 Stas Winston MD [address] [place] [address], [address] , [place] [facility] 4 14:08:44 Edema of lower extremity 010596229 Active 2023 Stas Winston MD [address] [place] [address], [address] , [place] [facility] 4 14:09:08 Persisten t cough 653840222 Active 2024 Stas Winston MD [address] [place] [address], [address] , [place] [facility] 14:34:20 Problem Notes None recorded. Procedures Surgical History Date Name Laterality Status Provider Name and Address Organization Details Recorded Time 05/19/20 AWV - male prevention plan completed Stas Winston MD [address] [place] [address], [address] [place] [address], [address], [place] [facility] 05/19/2025 14:49:10 05/19/20 25 AWV - safety evaluation completed Sepideh KeenanQuillar [place] - [facility] 05/19/2025 10:37:08 05/17/20 24 AWV - male prevention plan completed Stas Winston MD [address] [place] [address], [address], [place] - [place] [facility] 05/17/2024 15:09:54 05/17/20 24 Advance Care Planning Consultation completed Stas Winston MD [address] [place] [address], [address], [place] [facility] 05/17/2024 15:11:32 05/17/20 24 AWV - safety evaluation completed Conchis Enedeliaoine CT - [facility] 05/17/2024 07:04:45 02/18/20 16 Colonoscopy completed Conchis Patoine CT - [facility] 10/03/2023 08:59:06 total knee replacement completed Stas Winston MD [address] [place] [address], [address], [place] [facility] 10/03/2023 13:49:41 Lumbar Spine Surgery completed Stas Winston MD [address] [place] [address], [address], [place] [facility] 10/03/2023 13:50:33 Imaging Results None recorded. Procedure Notes None recorded. Medical Equipment None Reported. Allergies Allergen ID Allergen Name Allergen Category Reaction Reaction Severity Criticality Documentation Date Start Date Code Code System Note Provider Name and Address Organization Details Recorded Time 864241 dapaglifl ozin propanedi ol medicatio n Not available Not available Not available 12/02/20222022 62839 66 RxNorm Nause a dizzi ness Not Available [facility] 3 05:50:09 896391 Jardiance medicatio n Not available Not available Not available 12/08/2022 76092 59 RxNorm Urina ry frequ ency Stas Winston MD [address] [place] [address], [address] Floor, [place], [address], [place] - [place] [facility] 3 18:40:09 252571 empaglifl ozin medicatio n Not available Not available Not available 03/08/20232022 39729 53 RxNorm Frequ ency Not Available [facility] 3 19:21:50 Medications Name Sig Start Date Stop Date Status Note LastModified by Organization Details LastModified Time onetouch delica plus lancing device [facility] active Not Available Not Available Not Available onetouch delica plus lancets extra [facility] 11/16 completed Not Available Not Available Not Available losartan 50 mg tablet TAKE 1 TABLET BY MOUTH 1 TIME EACH DAY. active Not Available Not Available No t Available cyclobenzap rine 10 mg tablet Take 1 tablet (10 mg total) by mouth 3 (three) times a day as needed for muscle spasms. 05/07 completed Not Available Not Available Not Available amoxicillin 500 mg capsule TAKE 4 CAPS 1 HOUR PRIOR TO DENTAL APPOINTME NT 10/03 completed Not Available Not Available Not Available atorvastati n 40 mg tablet Take 1 tablet (40 mg total) by mouth daily. 08/20 completed Not Available Not Available Not Available methocarbam ol 500 mg tablet Take 1 tablet (500 mg total) by mouth 3 (three) times a day. 05/07 completed Not Available Not Available Not Available metformin 500 mg tablet TAKE 1 TABLET BY MOUTH AT BREAKFAST AND 2 TABLETS BY MOUTH WITH DINNER 2024 active Not Available Not Available Not Avai lable acetaminoph en 325 mg tablet Take 650 mg by mouth every 6 (six) hours as needed for pain. 01/25 completed Not Available Not Available Not Available carvedilol 6.25 mg tablet TAKE 1 TABLET BY MOUTH TWICE DAILY 09/24 completed Not Available Not Available Not Available prednisone 10 mg tablet TAKE 3 TABLETS (30 MG TOTAL) BY MOUTH EVERY MORNING WITH BREAKFAST FOR 7 DAYS. 11/16 completed Not Available Not Available Not Available atorvastati n 20 mg tablet TAKE 1 TABLET BY MOUTH ONCE DAILY 2024 active Not Available Not Available Not Avai lable carvedilol 12.5 mg tablet Take 1 tablet twice a day 2024 active Not Available Not Available Not Avai lable tizanidine 2 mg tablet Take 1-2 tabs po Q 8 hours prn spasm 08/17 completed Not Available Not Available Not Available polyethylen e glycol 3350 17 gram oral powder packet Take 17 g by mouth daily. 12/17 completed Not Available Not Available Not Available ibuprofen 800 mg tablet One tid prn pain 06/19 completed Not Available Not Available Not Available tizanidine 4 mg tablet TAKE 1 TABLET BY MOUTH THREE TIMES A DAY 10/03 completed Not Available Not Available Not Available benzonatate 200 mg capsule Take 1 capsule (200 mg total) by mouth 3 (three) times a day as needed for cough. 01/02 completed Not Available Not Available Not Available hydrocodone 5 mg-acetamin ophen 325 mg tablet Take 1 tab every 12 hours as needed for pain 04/25 completed Not Available Not Available Not Available meloxicam 15 mg tablet Take 1 tablet (15 mg total) by mouth daily. 01/07 completed Not Available Not Available Not Available lisinopril 20 mg tablet 12/09 completed Not Available Not Available Not Available hydromorpho ne 8 mg tablet Take 1 tablet (8 mg total) by mouth every 4 (four) hours as needed. 12/17 completed Not Available Not Available Not Available prednisone 20 mg tablet TAKE 1 TABLET TWICE A DAY FOR 4 DAYS AND THEN 1 TABLET ONCE EACH MORNING FOR 4 DAYS. 07/23 completed Not Available Not Available Not Available sennosides 8.6 mg-docusate sodium 50 mg tablet Take 1 tablet by mouth 2 (two) times a day. 01/07 completed Not Available Not Available Not Available meclizine 12.5 mg tablet Take 1-2 tablets (12.5-25 mg total) by mouth 3 (three) times a day as needed for dizziness or nausea. 08/17 completed Not Available Not Available Not Available amlodipine 5 mg tablet take 1 tablet daily 2024 active Not Available Not Available Not Avai lable aspirin 81 mg tablet,odell yed release Take 1 tablet (81 mg total) by mouth 2 (two) times a day after meals. 2021 active Not Available Not Available Not Avai lable tramadol 50 mg tablet TAKE 1 TABLET(S) EVERY 6 HOURS NEEDED FOR PAIN 04/23 completed Not Available Not Available Not Available acetaminoph en 500 mg tablet Take 2 tablets (1,000 mg total) by mouth every 8 (eight) hours as needed for pain. 05/29 completed Not Available Not Available Not Available triamterene 37.5 mg-hydrochl orothiazide 25 mg capsule TAKE 1 CAPSULE BY MOUTH EVERY DAY 05/19 completed Not Available Not Available Not Available amoxicillin 500 mg tablet Take 4 tabs 1 hour prior to dental appointme nt 2021 active Not Available Not Available Not Avai lable oxycodone-a cetaminophe n 5 mg-325 mg tablet TAKE 1 TABLET BY MOUTH EVERY 8 HOURS FOR UP TO 5 DAYS NEEDED FOR PAIN 10/03 completed Not Available Not Available Not Available hydrocortis one 2.5 % topical cream with perineal applicator Apply topically 2 (two) times a day. 08/12 completed Not Available Not Available Not Available methocarbam ol 750 mg tablet Take 1 tablet (750 mg total) by mouth every 6 (six) hours as needed. 01/07 completed Not Available Not Available Not Available amlodipine 10 mg tablet TAKE 1 TABLET BY MOUTH DAILY 05/19 completed Not Available Not Available Not Available pantoprazol e 40 mg tablet,odell yed release Take 1 tablet (40 mg total) by mouth daily for 40 days. 05/29 completed Not Available Not Available Not Available metformin 1,000 mg tablet Take 1 tablet (1,000 mg total) by mouth 2 (two) times a day with meals. 07/27 completed Not Available Not Available Not Available lisinopril 10 mg tablet TAKE 1 TABLET BY MOUTH DAILY 09/29 completed Not Available Not Available Not Available lidocaine 5 % topical patch APPLY 1 PATCH BY TOPICAL ROUTE ONCE DAILY (MAY WEAR UP TO 12HOURS.) 09/24 completed Not Available Not Available Not Available ibuprofen 400 mg tablet 11/16 completed Not Available Not Available Not Available codeine 10 mg-guaifene sin 100 mg/5 mL Syrup Take 5 mL by mouth 4 (four) times a day as needed for cough. 10/06 completed Not Available Not Available Not Available docusate sodium 100 mg capsule Take 1 capsule (100 mg total) by mouth 2 (two) times a day. 12/17 completed Not Available Not Available Not Available gabapentin 300 mg capsule Take 1 capsule (300 mg total) by mouth 3 (three) times a day. 08/20 completed Not Available Not Available Not Available codeine 10 mg-guaifene sin 100 mg/5 mL oral liquid TAKE 5 ML BY MOUTH FOUR TIMES DAILY NEEDED 10/03 completed Not Available Not Available Not Available hydrochloro thiazide 25 mg tablet Take 25 mg by mouth 2 (two) times a day. 03/24 completed Not Available Not Available Not Available ergocalcife rol (vitamin D2) 1,250 mcg (50,000 unit) capsule Take 1 capsule (50,000 Units total) by mouth once a week. 09/29 completed Not Available Not Available Not Available methylpredn isolone 4 mg tablets in a dose pack TAKE 6 TABLETS ON DAY 1 DIRECTED ON PACKAGE AND DECREASE BY 1 TAB EACH DAY FOR A TOTAL OF 6 DAYS 10/03 completed Not Available Not Available Not Available colchicine 0.6 mg tablet Take 1 tablet every day by oral route. 2024 active Not Available Not Available Not Avai lable ketoconazol e 2 % topical cream Apply topically 2 (two) times a day. 08/12 completed Not Available Not Available Not Available hydromorpho ne 4 mg tablet Take 1 tablet (4 mg total) by mouth every 4 (four) hours as needed. 12/17 completed Not Available Not Available Not Available fluticasone propionate 50 mcg/actuati on nasal spray,suspe nsion 2 squirts each nostril daily 2024 active Not Available Not Available Not Avai lable loratadine 10 mg tablet Take 10 mg by mouth every night at bedtime. 05/29 completed Not Available Not Available Not Available naproxen 500 mg tablet Take 1 tablet (500 mg total) by mouth 2 (two) times a day with meals. 08/20 completed Not Available Not Available Not Available tobramycin 0.3 %-dexametha sone 0.1 % eye drops,suspe nsion INSTILL 1 DROP INTO RIGHT EYE FOUR TIMES A DAY FOR 7 DAYS THEN TWICE A DAY FOR 7 DAYS. SHAKE WELL 04/23 completed Not Available Not Available Not Available neomycin 3.5 mg/g-polymy jennifer B 10,000 unit/g-dexa meth 0.1 % eye oint APPLY 1/4 INCH STRIP INSIDE LOWER EYE LID TWICE A DAY FOR 7 DAYS 11/16 completed Not Available Not Available Not Available cholecalcif shawanda (vitamin D3) 25 mcg (1,000 unit) capsule Take 1,000 Units by mouth daily. 2020 active Not Available Not Available Not Avai lable cyclobenzap rine 5 mg tablet Take 1 tablet every day by oral route at bedtime for 21 days, for pain. 07/23 completed Not Available Not Available Not Available diclofenac 1 % topical gel APPLY 2 GRAMS TO THE LOWER BACK BY TOPICAL ROUTE 4 TIMES PER DAY 09/24 completed Not Available Not Available Not Available loratadine 10 mg capsule Take 1 caplet by mouth daily as needed. 01/07 completed Not Available Not Available Not Available OneTouch Verio test strips USE WITH METER TO TEST ONCE DAILY 2024 active Not Available Not Available Not Avai lable oxycodone 5 mg tablet,oral ONLY (not feeding tubes) Take 1 tablet (5 mg total) by mouth every 4 (four) hours as needed. 01/07 completed Not Available Not Available Not Available Farxiga 10 mg tablet TAKE 1 TABLET BY MOUTH EVERY DAY 03/20 completed Not Available Not Available Not Available Jardiance 10 mg tablet Take 1 tablet (10 mg total) by mouth daily. 03/20 completed Not Available Not Available Not Available Shingrix (PF) 50 mcg/0.5 mL intramuscul ar suspension, kit ADM 0.5ML IM UTD 01/07 completed Not Available Not Available Not Available OneTouch Delica Plus Lancet 33 gauge USE WITH METER TO TEST ONCE DAILY active Not Available Not Available No t Available QuickVue At-Home COVID-19 Test kit USE DIRECTED 05/19 completed Not Available Not Available Not Available Mounjaro 7.5 mg/0.5 mL subcutaneou s pen injector INJECT 7.5 MG SUBCUTANE OUSLY WEEKLY 06/12 completed Not Available Not Available Not Available Mounjaro 5 mg/0.5 mL subcutaneou s pen injector INJECT 0.5 ML SUBCUTANE OUSLY EVERY WEEK 06/12 completed Not Available Not Available Not Available Mounjaro 10 mg/0.5 mL subcutaneou s pen injector INJECT 10 MG SUBCUTANE OUSLY WEEKLY active Not Available Not Available No t Available Mounjaro 2.5 mg/0.5 mL subcutaneou s pen injector INJECT 2.5 MG SUBCUTANE OUSLY WEEKLY 11/16 completed Not Available Not Available Not Available Vitals Date Recorded Body height Body mass index (BMI) Body weight Heart rate Oxygen saturation Systolic And Diastolic Provider Name and Address Organization Details Last Updated DateTime 180.3 cm 29.4 kg/m2 36597.9 9 g 83 /min 98 % 117/78 mm[Hg] Sepideh Quillar [facility] - [facility] 14:10:17 Social History Question Answer Notes LastModified by Organizat ion Details LastModified Time Tobacco Smoking Status Former Smoker Not Available [facility] 12/02/2022 19:47:30 When Did You Quit Smoking? 16+yearssinc elastcigaret te [email or web address] Information not available 11/17/2023 What Was The Date Of Your Most Recent Tobacco Screening? 2024 [email or web address] Information not available 2024 How Many Children Do You Have? 3 Information not available 05/19/2025 What Is Your Current Pack Years? 10packyears Information not available 11/17/2023 What Is Your Relationship Status? Information not available 05/17/2024 How Much Tobacco Do You Smoke? 1 PPW [email or web address] Information not available 11/17/2023 Has Tobacco Cessation Counseling Been Provided? Yes [email or web address] Information not available 11/17/2023 On What Date Was Tobacco Cessation Counseling Provided? 11/17/2023 [email or web address] Information not available 11/17/2023 How Many Years Have You Smoked Tobacco? 7 [email or web address] Information not available 11/17/2023 Sex: Male Functional Status Question Answer Note LastModified by Organization D etails LastModified Time Do you or have you ever used any other forms of tobacco or nicotine? No [email or web address] Information not available 11/17/2023 What is your level of alcohol consumption? None Information not available 2024 Mental Status None recorded. Family History Relationship Description Onset Age of this Age Resolved Age Notes LastModified by Organization Details LastModified Time Father Diabetes mellitus [email or web address] Not available 2023 13:43:18 Medical History No medical history recorded. Immunizations Vaccine Type Date Status Note Provider Nam e and Address Organization Details Recorded Time Influenza, adjuvanted, trivalent, PF 5 completed Stas Winston MD 95 [facility], [address] [place] [address], [address] [place] [address], [facility] 05/19/2025 14:40:45 zoster recombinant 1 completed Liliana Patel APRN [address], [address] [place] [address], [facility] 05/29/2024 12:03:27 zoster recombinant 9 completed Liliana Patel APRN 95 [facility], [address] [place] [address], [address], [facility] 05/29/2024 12:03:27 COVID-19, mRNA, LNP-S, bivalent, PF, 30 mcg/0.3 mL dose 2 completed Liliana Patel, [employer]UDENT [employer]IST[employer] DIRECTOR 95 [facility], [address] [place] [address], [place], [address], [place] [facility] 05/29/2024 12:03:27 Tdap 1 completed Liliana Kaylyn Patel, STUDENT MINISTRIES DIRECTOR 95 [facility], [address] [place] [address], [place], [address], [place] [facility] 05/29/2024 12:03:27 Influenza, adjuvanted, trivalent, PF 4 completed Stas Winston MD 95 [facility], [address] [place] [address], [place], [address], [place] - [facility] 04/23/2024 16:34:06 RSV, recombinant, protein subunit RSVpreF, adjuvant reconstituted, 0.5 mL, PF 3 completed Not Available [facility] 05/19/2025 13:44:20 COVID-19, mRNA, LNP-S, PF, jigar-sucrose, 30 mcg/0.3 mL 3 completed Not Available [facility] 05/19/2025 13:44:20 COVID-19, mRNA, LNP-S, PF, jigar-sucrose, 30 mcg/0.3 mL 4 completed Not Available [facility] 05/19/2025 13:44:20 pneumococcal polysaccharide PPV23 3 completed Not Available [facility] 12/02/2022 19:38:39 zoster live 7 completed Not Available [facility] 12/02/2022 19:38:40 Td (adult), 5 Lf tetanus toxoid, preservative free, adsorbed 1 completed Not Available [facility] 12/02/2022 19:38:40 pneumococcal polysaccharide PPV23 8 completed Not Available [facility] 12/02/2022 19:38:40 Tdap 1 completed Not Available [facility] 12/02/2022 19:38:40 Pneumococcal conjugate PCV 13 5 completed Not Available [facility] 12/02/2022 19:38:40 Influenza, split virus, trivalent, preservative 5 completed Not Available [facility] 12/02/2022 19:38:41 Influenza, split virus, trivalent, preservative 6 completed Liliana Patel, STUDENT [employer]ISTRI[employer] DIRECTOR 95 [facility], [address], [place], [address], [place] [facility] 05/29/2024 12:03:27 Influenza, split virus, trivalent, preservative 7 completed Liliana Patel, STUDENT [employer]ISTRI[employer] DIRECTOR 95 [facility], [address] Floor, [place], [address], [place] [facility] 05/29/2024 12:03:27 Influenza, adjuvanted, trivalent, PF 8 completed Not Available [facility] 12/02/2022 19:38:50 Influenza, adjuvanted, trivalent, PF 9 completed Not Available [facility] 12/02/2022 19:38:59 Influenza, adjuvanted, quadrivalent, PF 0 completed Not Available [facility] 12/02/2022 19:39:06 COVID-19, mRNA, LNP-S, PF, 30 mcg/0.3 mL dose 1 completed Not Available [facility] 12/02/2022 19:39:06 COVID-19, mRNA, LNP-S, PF, 30 mcg/0.3 mL dose 1 completed Not Available [facility] 12/02/2022 19:39:09 COVID-19, mRNA, LNP-S, PF, 30 mcg/0.3 mL dose 1 completed Not Available [facility] 12/02/2022 19:39:14 Influenza, adjuvanted, quadrivalent, PF 1 completed Not Available [facility] 12/02/2022 19:39:17 Influenza, adjuvanted, quadrivalent, PF 2 completed Not Available [facility] 12/02/2022 19:39:35 Pneumococcal conjugate PCV20, polysaccharide [id number] conjugate, adjuvant, PF 3 completed Kathi james, [place] - [facility] 03/20/2023 12:03:14 Influenza, adjuvanted, quadrivalent, PF 3 completed Stas Winston MD 95 [facility], [address] Floor, [place], [address], [place] [facility] 05/25/2023 09:35:10 Past Encounters Encounter ID Performer Location Encounter Start Date Encounter Closed Date Diagnosis/Indication Diagnosis SNOMED-CT Code Diagnosis ICD10 Code Diagnosis IMO Codes Diagnosis Note [id number] Stas Winston MD [facility]_ FM_[address] [place] [address] 05/19/2025 13:42:49 05/19/2025 14:46:01 Adult health examination 644368757 Z00.00 7674515 Diabetes mellitus 308394 09 E11.9 Requires i nfluenza virus vaccination 846836910 Z23 7031008 Hypertensive disorder 38 267427 I10 Obstructiv e sleep apnea syndrome 02196830 G47.33 Chronic ki dney disease stage 3A 453250848 N18.31 Hyperlipidemia 08342238 E78.5 Health Concerns Section Related Observation LastModified by Organization Detai ls LastModified Time None Recorded Concern Status LastModified by Organization Details LastModified Time None Recorded Payers Encounter Date Sequence Insurance Name Policy Number Policy [place] Covered Member ID [place] Member ID Guarantor Name 05/19/2025 1 [facility] OPEN ACCESS ([facility] RESIDENT ONLY) [id number] Emigdio Zambrano [id number] Emigdio Zambrano Notes Date Note Type Note Provider Name and Address Organization Details Recorded Time 5 text/html Medicare Annual Wellness Visit Health Risk AssessmentReported by PatientSocial/Behavioral HistoryFor physical activity, patient reportsdoes not exercise on a regular basisbut reportsgood physical condition. For diet and nutrition, patient reportshealthy dietandno dental changes. For medication review, patient reportshas medications at home and can afford medicationsandtaking medications as prescribed and directed. For fracture risk, patient reportsno history of fractures,no recent explained fracture,no sudden unexplained fractures, andno previous musculoskeletal injuries. For sexual activity, patient reportsdenies any difficulty. For current level of pain, patient reportssevere pain: 6/10 to 9/10. For behavioral history, patient reportsdenies use of tobacco or any other nicotine delivery product (i.e., e-cigarette, vaping or chewing tobacco) in past 12 months,denies alcohol use or practices limited (social only) alcohol use,denies misuse of prescription medications, anddenies drug use, including marijuana, cocaine or crack, heroin, methamphetamine (crystal meth), hallucinogens, ecstasy/mdma. For fatigue, patient reportsdenies fatigue.Mental Status:For depression risk, patient reportsassessed by phq 2/9, see results. For orientation, patient reportsno disorientation to time,no disorientation to date, andno disorientation to place. For concentration and memory, patient reportsno decreased concentrating ability,no memory lapses or loss, anddoes not forget words. For speech/motor difficulties, patient reportsno speech difficulties,no difficulty expressing formulated concepts,no difficulty with fine manipulative tasks,no difficulty writing/copying,no slowed reaction time, anddoes not knock things over when trying to pick them up. For life satisfaction, patient reportscurrently satisfied with life. For stress, patient reportsnot stressed. For anger/agitation, patient reportsno anger/agitation. For loneliness/ social isolation, patient reportsnot feeling loneliness. For suicidality, patient reportsdenied active suicidal ideation.Functional AbilityFor hearing, patient reportsno loss of hearing. For vision, patient reportsno vision problemsandwears eyeglasses/contacts. For activities of daily living, patient reportsable to bathe with limited or no assistance,able to control urination and bowels,able to dress with limited or no assistance,able to groom with limited or no assistance,able to feed self with limited or no assistance,able to get out of chair or bed with limited or no assistance, andable to toilet with limited or no assistance. For instrumental activities of daily living, patient reportsable to do house work with limited or no assistance,able to grocery shop with limited or no assistance,able to manage medications with limited or no assistance,able to manage money with limited or no assistance,able to prepare meals with limited or no assistance,able to use the phone with limited or no assistance,able to use public transportation, andable to do laundry with limited or no assistance. For home safety, patient reportsno unsafe lupillo hazards,no unsafe stairs,no unsafe gas appliances,working smoke/co detectors,use of seatbelts,no vision or hearing loss while driving,no fire arms,has hand bars in the bathroom/shower, andgood lighting in the home. AWV also here to follow-up diabetes chronic kidney disease hypertension. Patient reports she had a cold about 3 weeks ago. Has a persistent hacking cough. Patient on Mounjaro. Lost 30 pounds. Feels good was reports some discomfort left lateral proximal arm for few days. Without trauma Stas Winston MD [address] [place] [address], [address], [place], [address], [place] [facility] 05/19/2025 14:50:59
--- OUTSIDE RECORDS SUMMARY | 2025-06-27 12:34 | XMS_ITS | Clinical Summary ---
Author Organization [address] [facility] Building Address [address] [place] [address] Phone Care Team Providers Care Refrigeration Insulator Name Role Phone Stas Winston MD Primary Care Provider [phone] Allergies Active Allergy Reactions Criticality Noted Date Comments Dapagliflozin 08/15/2022 Nausea dizziness Empagliflozin 12/08/2022 Frequency Medications ferrous sulfate 143 mg (45 mg iron) tablet extended release Take 65 mg by mouth 1 (one) time each day. Active lancets lancets USE WITH METER TO TEST ONCE DAILY 2 Active aspirin 81 mg EC tablet Take 1 tablet (81 mg total) by mouth 2 (two) times a day. After Meals 2 Active atorvastatin (LIPITOR) 20 mg tablet Take 1 tablet (20 mg total) by mouth 1 (one) time each day. 3 Active carvediloL (COREG) 6.25 mg tablet Take 1 tablet (6.25 mg total) by mouth 2 (two) times a day. 3 Active cholecalcifero l (VITAMIN D-3) 25 mcg (1,000 unit) capsule Take 1 capsule (1,000 Units total) by mouth 1 (one) time each day. 1 Active fluticasone propionate (FLONASE) 50 mcg/actuation nasal spray Administer 1 spray into affected nostril(s) 1 (one) time each day. Active metFORMIN (GLUCOPHAGE) 500 mg tablet Take 1 tablet (500 mg total) by mouth 2 (two) times a day with meals. TAKE 1 TABLET BY MOUTH AT BREAKFAST AND 2 TABLETS WITH DINNER 3 Active blood sugar diagnostic (OYE!uch Verio test strips) test strip USE WITH METER TO TEST ONCE DAILY 2 Active amLODIPine (NORVASC) 5 mg tablet Take 1 tablet (5 mg total) by mouth 1 (one) time each day. Active amoxicillin (AMOXIL) 500 mg tablet Take 4 tabs 1 hour prior to dental appointment 2 Active traMADoL (ULTRAM) 50 mg tablet TAKE 1 TABLET(S) EVERY 6 HOURS NEEDED FOR PAIN 4 Active Mounjaro 10 mg/0.5 mL injection INJECT 10 MG SUBCUTANEOUSLY WEEKLY 5 Active colchicine (COLCRYS) 0.6 mg tablet Take 1 tablet (0.6 mg total) by mouth 1 (one) time each day. 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 cortisol normal less than 5 repeat imaging on occasion; Allergic rhinitis 04/17/2015 Anemia, unspecified 04/17/2015 Diabetes ([facility] V24, [facility] V28) 11/02/2014 Hyperlipemia 11/02/2014 Hypertension 11/02/2014 Peripheral neuropathy 11/02/2014 Immunizations Immunization Administration Dates Next Due Influenza Quadravalent, 0.5m l (Fluad) 65yo and older 05/12/2022,06/01/2021,05/29/2020 Influenza trivalent, 0.5mL ( Fluad) 65yo and older 05/16/2019,04/19/2018 Influenza trivalent, with pr eservative (Fluzone; Afluria) 6mo and older 04/18/2017,06/16/2016,04/20/2015 Pneumococcal conjugate 13 va lent (Prevnar 13, PCV13) 2mo and older 04/20/2015 Pneumococcal polysaccharide 23 valent (Pneumovax 23) 2yo and older 05/13/2013,06/04/1998 Td Tetanus diptheria, preser vative free (Tenivac) 7yo and older 08/07/2000 Tdap Tetanus diptheria acell ular pertussis (Boostrix; Adacel) 7yo and older 06/03/2011 Zoster Live 05/17/2007 Surgical History Surgery Date Site/Laterality Comments COLONOSCOPY PROCEDURE:COLONOSCOPY BACK SURGERY PROCEDURE:BACK SURGERY;COMMENT:laminectomy 2000 LUMBAR LAMINECTOMY 10/29/2014 N/A PROCEDURE:LUMBAR LAMINECTOMY;COMMENT:Procedure: LAMINECTOMY / FORAMENOTOMIES POSTERIOR LUMBAR, L3-4 L4-5 L5-S1. RIGHT L 4-5 DISCECTOMY; Surgeon: John Kim MD; Location: [facility] MAIN [facility] RO[facility]; Service: Spine; Laterality: N/A; TOTAL KNEE ARTHROPLASTY 04/23/2020 Right PROCEDURE:TOTAL KNEE ARTHROPLASTY;COMMENT:Procedure: REPLACEMENT TOTAL KNEE; Surgeon: Alan Quintanilla MD; Location: [facility] ([facility]); Service: Orthopedics; Laterality: Right; JOINT REPLACEMENT PROCEDURE:JOINT REPLACEMENT TOTAL KNEE ARTHROPLASTY 08/26/2021 Left PROCEDURE:TOTAL KNEE ARTHROPLASTY;COMMENT:Procedure: REPLACEMENT TOTAL KNEE; Surgeon: Alan Quintanilla MD; Location: [facility] ([facility]); Service: Orthopedics; Laterality: Left; Medical History Medical History Date Comments Hypertension DX:Hypertension Hyperlipidemia DX:Hyperlipidemi a Peripheral neuropathy DX:Periphe ral neuropathy Diabetes mellitus, type II ( CMS/HCC V24, CMS/HCC V28) DX:Diabetes mellitus, type I I (HCC) Diabetes (CMS/HCC V24, CMS/HCC V28) 11/02/2014 DX:Diabetes (HCC) History of vertigo DX:History of vertigo Anemia DX:Anemia;COMMEN T:mild Kidney disease DX:Kidney diseas e Allergic rhinitis DX:Allergic rh initis Family History Medical History Relation Name Comments [...] Passive Smoke Exposure: Past Smokeless Tobacco: Never Tobacco Cessation:Counseling Given: Yes Alcohol Use Standard Drinks/Week Comments No 0 (1 standard drink = 0.6 oz pur e alcohol) Sex and Gender Information Value Date Recorded Sex Assigned at Not on file Legal Sex Male 5:27 PM EST Gender Identity Not on file Sexual Orientation Not on file Obstetrics History Last Filed Vital Signs Vital Sign Reading Time Taken Comments Blood Pressure 158/81 2025 12:39 PM EDT Pulse 78 08/19/2024 1:13 PM EST Temperature - - Respiratory Rate 20 08/19/2024 1:09 PM EST Oxygen Saturation 97% 08/19/2024 1:09 PM EST Inhaled Oxygen Concentration - - Weight 104 kg (230 lb) 2025 12:39 PM EDT Height 180.3 cm (5' 11 ) 2025 12:39 PM EDT Body Mass Index 32.08 2025 12:39 PM EDT Plan of Treatment Upcoming Encounters Date Type Department Care Team (Late st Contact Info) Description 08/19/2025 1:30 PM EST Office Visit Pulmonology - [address] [address] Isaiah Joy MD [address] [place] [address] Health Maintenance Due Date Last Done Comments Diabetes: Annual Foot Exam 1955 Diabetes: Annual Retina Eye Exam 1955 Falls Risk Assessment 07/14/2022 Hepatitis C Screening 07/14/2022 Medicare Annual Wellness Visit 07/14/2022 Social Influencers of Health Screening 07/14/2022 Diabetes: Blood Sugar Control Test (HGBA1C) 11/28/2023 05/29/2023, 05/29/2023, 08/14/2021, Additional history exists Diabetes: Annual Urine Albumin-Creatinine Ratio (uACR) 03/21/2024 03/21/2023, 03/21/2023, 04/01/2020, Additional history exists Depression Screening 08/07/2024 COVID-19 Vaccine ( season) 2025 05/01/2024, 07/04/2023, 04/27/2022, Additional history exists Influenza Vaccine (#1) 2025 , 05/25/2023, 05/12/2022, Additional history exists Diabetes: Annual GFR (Glomerular Filtration Rate) 09/24/2025 09/24/2024, 09/24/2024, 2024, Additional history exists Hypertension/CHF/CAD Annual BMP Blood Test 09/24/2025 09/24/2024, 09/24/2024, 2024, Additional history exists Cholesterol Screening (Lipid Panel) 10/03/2028 10/03/2023, 10/03/2023, 05/29/2023, Additional history exists DTaP,Tdap,and Td Vaccines (4 - Td or Tdap) 03/16/2031 03/16/2021, 06/03/2011, 08/07/2000 Zoster Vaccines Completed 03/16/2021, 1004/2019, 05/17/2007 Pneumococcal Vaccine: 50+ Years Completed 03/20/2023, 04/20/2015, 05/13/2013, Additional history exists RSV Immunization Adult Patients Completed 07/04/2023 HIB Vaccines Aged Out No longer eligi ble based on patient's age to complete this topic HPV Vaccines Aged Out No longer eligi ble based on patient's age to complete this topic Hepatitis A Vaccines Aged Out No long er eligible based on patient's age to complete this topic Hepatitis B Vaccines Aged Out No long er eligible based on patient's age to complete this topic IPV Vaccines Aged Out No longer eligi ble based on patient's age to complete this topic MMR Vaccines Aged Out No longer eligi ble based on patient's age to complete this topic Meningococcal ACWY Vaccine Aged Out N o longer eligible based on patient's age to complete this topic Meningococcal B Vaccine Aged Out No l onger eligible based on patient's age to complete this topic RSV Immunization Patients Under 20 months Aged Out No longer eligible based on patient's age to complete this topic Varicella Vaccines Aged Out No longer eligible based on patient's age to complete this topic Medical Devices Implanted Type Area Visual Display Associate Device Identifier Shelf Expiration Date Model / Serial / Lot Cement Simplex P Radiopaque Full Dose Bone 10 Pack - [id number] Implanted:Qty: 1 on 04/23/2020 by Alan Quintanilla MD Right: Knee [employer] [id number] 09/06/2021 6191-1-010 / / [id number] Cement Simplex P Radiopaque Full Dose Bone 10 Pack - [id number] Implanted:Qty: 1 on 04/23/2020 by Alan Quintanilla MD Right: Knee [employer] [id number] 09/06/2021 6191-1-010 / / [id number] Baseplate Triathlon 7 Cemented Primary Tibial Knee - [id number] Implanted:Qty: 1 on 04/23/2020 by Alan Quintanilla MD Right: Knee [employer] [id number] 05/28/2024 5520-B-700 / / [id number] Component Triathlon 6 Posterior Stabilized Cemented Femoral - [id number] Implanted:Qty: 1 on 04/23/2020 by Alan Quintanilla MD Right: Knee [employer] [id number] 03/19/2024 5515-F-602 / / [id number] Triathlon Ps Insert - Size 7 10mm X3 - [id number] Implanted:Qty: 1 on 04/23/2020 by Alan Quintanilla MD Right: Knee [employer] [id number] 01/27/2024 5532-G-710 -E / / [id number] Component Triathlon 10mm 35mm Symmetric X3 Ptlar Knee - [id number] Implanted:Qty: 1 on 04/23/2020 by Alan Quintanilla MD Right: Knee [employer] [id number] 01/28/2024 5551-G-350 / / [id number] Peg Triathlon Modular Fix Distal Femur Knee - [id number] Implanted:Qty: 1 on 04/23/2020 by Alan Quintanilla MD Right: Knee [employer] [id number] 09/03/2024 5575-X-000 / / [id number] Knee Fem Ps Trthln Sz 6 Lt Stry-Howm [id number] Implanted:Qty: 1 on 08/26/2021 by Alan Quintanilla MD Left: Knee [employer] [id number] 04/07/2026 5515-F-601 / / [id number] Baseplate Triathlon Cmnt Stry-Howm [id number] Implanted:Qty: 1 on 08/26/2021 by Alan Quintanilla MD Left: Knee [employer] [id number] 01/14/2024 5520-B-700 / / [id number] Knee Insert Tib Ps X3 Sz 7-9 Stry-Howm [id number] Implanted:Qty: 1 on 08/26/2021 by Alan Quintanilla MD Left: Knee [employer] [id number] 12/20/2025 5532-G-709 / / [id number] Knee Pat Asymmetric X3 [id number] Stry-Howm [id number]-[id number] Implanted:Qty: 1 on 08/26/2021 by Alan Quintanilla MD Left: Knee [employer] [id number] 09/18/2025 5551-G-320 -E / / [id number] Peg Fix Femoral Distal Stry-Howm [id number] Implanted:Qty: 1 on 08/26/2021 by Alan Quintanilla MD Left: Knee [employer] [id number] 05/23/2025 5575-X-000 / / [id number] Cement Bone Surg Simplex Radiopq Stry-Howm [id number] Implanted:Qty: 1 on 08/26/2021 by Alan Quintanilla MD Left: Knee [employer] [id number] 10/05/2023 6191-1-010 / / [id number] Cement Bone Surg Simplex Radiopq Stry-Howm [id number] Implanted:Qty: 1 on 08/26/2021 by Alan Quintanilla MD Left: Knee [employer] [id number] 10/05/2023 6191-1-010 / / [id number] Procedures Procedure Name Priority Date/Time Associated Diagnosis Comments BASIC METABOLIC PANEL Routine 09/24/2024 2:58 PM EST Chronic kidney disease, stage 3a (CMS/HCC) LIPID PANEL Routine 10/03/2023 HEMOGLOBIN A1C Routine 05/29/2023 HM URINE ALBUMIN CREATININE RATIO Routine 03/21/2023 from Last 3 Months or Most Recently Relevant to Health Maintenance Results * Basic metabolic panel (09/24/2024 2:58 PM EST) Sodium 145 135 - 145 mmol/L LAB CHEMISTRY METHOD 09/24/2024 9:12 PM EST [facility] Potassium 4.2 3.5 - 5.1 mmol/L LAB CHEMISTRY METHOD 09/24/2024 9:12 PM EST [facility] Chloride 105 98 - 107 mmol/L LAB CHEMISTRY METHOD 09/24/2024 9:12 PM [facility] CO2 28 24 - 32 mmol/L LAB CHEMISTRY METHOD 09/24/2024 9:12 PM EST [facility] Anion Gap 12 5 - 14 LAB CHEMISTRY METHOD 09/24/2024 9:12 PM [facility] Glucose 81 70 - 199 mg/dL LAB CHEMISTRY METHOD 09/24/2024 9:12 PM EST [facility] BUN 15 9 - 20 mg/dL LAB CHEMISTRY METHOD 09/24/2024 9:12 PM [facility] Creatinine 1.20 0.70 - 1.30 mg/dL LAB CHEMISTRY METHOD 09/24/2024 9:12 PM EST [facility] eGFR 62 >=60 mL/min/1. 73m2 LAB CHEMISTRY METHOD 09/24/2024 9:12 PM EST [facility] Comment: Calculation based on the Chronic Kidney Disease Epidemiology Collaboration (CKD-EPI) equation refit without adjustment for race. Calculation based on the Chronic Kidney Disease Epidemiology Collaboration (CKD-EPI) equation refit without adjustment for race. BUN/Creatinine Ratio 12.5 12.0 - 20.0 LAB CHEMISTRY METHOD 09/24/2024 9:12 PM [facility] Calcium 9.6 8.4 - 10.2 mg/dL LAB CHEMISTRY METHOD 09/24/2024 9:12 PM EST [facility] Blood Venous blood specimen / Unknown 09/24/2024 2:58 PM EST 09/24/2024 8:23 PM EST us Stas Winston MD LAB BLOOD ORDERABLES Final Resul t [facility] [address] [place] [address], [place] [phone] * Lipid panel (10/03/2023) Triglycerides 100 <=150 mg/dL Cholesterol 150 0 - 200 mg/dL HDL 51 32 - 70 mg/dL LDL Cholesterol 79 50 - 130 mg/dL Blood Venous blood specimen / Unknown Historical Provider LAB BLOOD ORDERABLES Rosaline l Result * (ABNORMAL) Hemoglobin A1c (05/29/2023) Hemoglobin A1C 7.8(A) <=5.7 % Blood Venous blood specimen / Unknown Result [facility] Historical Provider LAB BLOOD ORDERABLES Rosaline l Result * HM Urine Albumin Creatinine Ratio (03/21/2023) Urine Albumin Creatinine Ratio Abstracted Result [facility] Provider HEALTH MAINTENANCE Final Result from Last 3 Months or Most Recently Relevant to Health Maintenance Insurance [employer] Care Teams Refrigeration Insulator Relationship Specialty Start Date End Date Stas Winston MD [address] [address] PCP - General Family Medicine 08/15/24
--- OUTSIDE RECORDS SUMMARY | 2025-06-27 12:34 | XMS_ITS | Data Portability ---
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 Have you reviewed all current prescriptions and noted which they have discontinued with the patient? Reviewed with patient 2. Have you asked the patient if they are experiencing any new or recurring issues with bladder control? Reviewed with patient 3. Have you asked the patient about their current physical fitness routine and goals? Reviewed with patient 1. 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 up-to-date #3 diabetes doing great #4 hypertension good controlFollow-up in 3 months [email or web address] Not available 05/17/2024 15:14:26 05/29/2024 05/29/2024 #lbp -consider 2/2 ddd vs strain, no radiculopathy -poc ua today significant for proteinuria otherwise unremarkable -will treat conservatively given age and comorbidities -rx diclofenac gel 2g qid during waking hours and lidocaine patch q12 hrs at night -december c/w otc apap 500-1000mg q6hrs prn, heating pad, walker -avoid nsaids -if no improvement then consider prednisone #lumbar stenosis -s/p laminectomy, R L4-[address] Gardner 10/29/14 -01/29/15 mri hip: mild DJD of hip joints bilat -11/04/14 lumbar mri: Postsurgical changes L3-L4 through L5-S1, inclusive related to right-sided laminotomies. Marked improvement in degree of spinal canal stenosis at these levels. Small central disc protrusion is present at L3-L4 and L4-L5, not significantly changed. Small amount of fluid within the left L4-L5 disc space consistent with recent partial discectomy. #dm -04/23/24 a1c 5.5 random glucose today 98 -well controlled #htn -bp today 128/82 normotensive -c/w current meds [email or web address] Not available 05/29/2024 18:37:35 05/19/2025 05/19/2025 Reminders 1. Have you reviewed [...] kidney disease stage III has appoint with piano bench assembler #4 diabetes doing great current A1c is [...] Time Details Appointments Office Visit 2025 02:00P M Stas Winston MD Not available Not available Not available Lab glucose, fasting, fingerst ick, blood (point of care) 20[address] [facility]ctcma_fm[facility] [address] [place], [address], [place], [address], 05/19/2025 14:40:45 HbA1c (hemoglo bin A1c), blood 2024 [address]ctcma_fm_1 [address] [place], [address], [place], [address], 05/19/2025 14:40:45 lipid panel, serum [email or web address]_ctcma_fm_1 [address] [place], [address], [place], [address], 05/26/2025 09:00:58 BMP, serum or plasma [address]_ctcma_fm_1 [address] [place], [address], [place], [address], 05/26/2025 09:00:58 glucose, fasting, fingerst ick, blood (point of care) [email or web address]_ctcma_fm_1 [address] [place], [address], [place], [address], 09/24/2024 15:55:27 CBC w/ auto diff [address]_ctcma_fm_1 [address] [place], [address], [place], [address], 09/24/2024 14:35:42 iron + TIBC + ferritin , serum [address]24 [address]_ctcma_fm_1 [address] [place], [address] [address], [place], [address], 09/24/2024 14:35:42 BMP, serum or plasma 2024 [address]_ctcma_fm_1 [address] [place], [address], [place], [address], 09/24/2024 14:35:42 CMP, serum or plasma 2024 [address]_ctcma_fm_1 [address] [place], [address], [place], [address], 09/25/2024 01:17:22 glucose, fasting, fingerst ick, blood (point of care) 2023 [address]ct[facility]ma_fm[facility]1 [address] [place], [address], [place], [address], 07/23/2024 16:10:27 HbA1c (hemoglo bin A1c), blood 2023 [address]ctcma_fm_1 [address] [place], [address], [place], [address], 07/23/2024 16:10:27 urinalys is, dipstick [email or web address]_ctcma_fm_1 [address] [place], [address], [place], [address], 05/29/2024 18:31:44 glucose, fasting, fingerst ick, blood (point of care) [email or web address]_ctcma_fm_1 [address] [place], [address], [place], [address], 05/29/2024 18:36:55 glucose, fasting, fingerst ick, blood (point of care) 2023 024 [facility] [address] [place], [address], [place], [address], 05/17/2024 15:22:10 Referral None recorded . Procedures None recorded . Surgeries None recorded . Imaging XR, chest, 2 view 2024 025 [place] ([facility]), [address] , [place], [address], 10/03/2024 12:47:27 Medication Orders carvedil ol 12.5 mg tablet 2023 024 [place] [facility], [address], [address], [place], [address], 07/23/2024 15:24:07 diclofen ac 1 % topical gel 2023 025 [facility], [address] [place], [address], 09/24/2024 14:29:58 lidocain e 5 % topical patch 2023 025 [facility], [address] [place], [address], 09/24/2024 14:29:54 Patient TargetsNo targets recorded. Patient Instructions Encounter Date Encounter Id Patient Instructions Last Modified By Organization Details Last Modified Time 05/17/2024 [id number] well visit, over 65: care instructions queenie Not available 05/17/2024 15:22:10 preventing falls : care instructions queenie Not available 05/17/2024 15:22:10 advance directiv es: care instructions queenie Not available 05/17/2024 15:22:10 To promote good health please follow these recommendations: Diet, Physical Activity and Healthy Weight: -Eat a diet low in trans and saturated fats and high in fiber, fruits and vegetables -Take 3737-5832 mg of calcium through diet and supplements -Engage in regular physical activity and weight bearing exercise -Aim to achieve and maintain ideal body mass index Tobacco and Alcohol Use: -Don't smoke or use other tobacco products -Avoid excessive alcohol intake Medications: -If you use any medications (prescriptions, lzyn-cee-ivmvpvk, supplements, herbal), always do so as directed [...] recommendations outlined in your personal wellness plan. [email or web address] Not available 05/17/2024 07:04:43 05/19/2025 [id number] well visit, over 65: care instructions queenie Not available 05/19/2025 14:40:44 preventing falls : care instructions queenie Not available 05/19/2025 14:40:45 advance directiv es: care instructions queenie Not available 05/19/2025 14:40:45 To promote good health please follow these recommendations: Diet, Physical Activity and Healthy Weight: -Eat a diet low in trans and saturated fats and high in fiber, fruits and vegetables -Take 5077-0560 mg of calcium through diet and supplements -Engage in regular physical activity and weight bearing exercise -Aim to achieve and maintain ideal body mass index Tobacco and Alcohol Use: -Don't smoke or use other tobacco products -Avoid excessive alcohol intake Medications: -If you use any medications (prescriptions, yvwv-bfr-yboyhlc, supplements, herbal), always do so as directed [...] Abnormal Flag Note LastModifiedBy Organization Detail LastModifiedTime 09/25/19 25 09/24/2024 CBC WITH AUTO DIFFE RENTI AL WBC 6.7 K/mcL 4.0-10 .5 Not Available [address], [address], 09/25/2024 01:06:51 09/25/19 25 09/24/2024 CBC WITH AUTO DIFFE RENTI AL RBC 4.02 M/mcL 4.70-6 .00 low Not Available [address], [address], 09/25/2024 01:06:51 09/25/1909/24/2024 CBC WITH AUTO DIFFE RENTI AL hemoglobin 13.0 g/dL 13.5-1 8.0 low Not Available [address], [address], 09/25/2024 01:06:51 09/25/1909/24/2024 CBC WITH AUTO DIFFE RENTI AL hematocrit 38.2 % 40.0-5 4.0 low Not Available [address], [address], 09/25/2024 01:06:51 09/25/19 25 09/24/2024 CBC WITH AUTO DIFFE RENTI AL MCV 95.0 fL 78.0-1 00.0 Not Available [address], [address], 09/25/2024 01:06:51 09/25/19 25 09/24/2024 CBC WITH AUTO DIFFE RENTI AL MCH 32.3 pcg 25.0-3 3.0 Not Available [address], [address], 09/25/2024 01:06:51 09/25/19 25 09/24/2024 CBC WITH AUTO DIFFE RENTI AL MCHC 34.0 g/dL 32.0-3 6.0 Not Available [address], [address], 09/25/2024 01:06:51 09/25/19 25 09/24/2024 CBC WITH AUTO DIFFE RENTI AL RDW 15.0 % 12.1-1 7.7 Not Available [address], [address], 09/25/2024 01:06:51 09/25/19 25 09/24/2024 CBC WITH AUTO DIFFE RENTI AL platelets 242 K/mcL 150-45 0 Not Available [address], [address], 09/25/2024 01:06:51 09/25/19 25 09/24/2024 CBC WITH AUTO DIFFE RENTI AL MPV 8.2 fL 7.4-11 .4 Not Available [address], [address], 09/25/2024 01:06:51 09/25/19 25 09/24/2024 CBC WITH AUTO DIFFE RENTI AL neutrophils relative 64.8 % 44.0-7 4.0 Not Available [address], [address], 09/25/2024 01:06:51 09/25/19 25 09/24/2024 CBC WITH AUTO DIFFE RENTI AL lymphocytes relative 22.4 % 20.0-4 8.0 Not Available [address], [address], 09/25/2024 01:06:51 09/25/19 25 09/24/2024 CBC WITH AUTO DIFFE RENTI AL monocytes relative 8.7 % 2.0-12 .0 Not Available [address], [address], 09/25/2024 01:06:51 09/25/19 25 09/24/2024 CBC WITH AUTO DIFFE RENTI AL eosinophils relative 3.2 % 0.0-6. 0 Not Available [address], [address], 09/25/2024 01:06:51 09/25/1909/24/2024 CBC WITH AUTO DIFFE RENTI AL basophils relative 0.9 % 0.0-2. 0 Not Available [address], [address], 09/25/2024 01:06:51 09/25/19 25 09/24/2024 CBC WITH AUTO DIFFE RENTI AL neutrophils absolute 4.30 K/mcL 1.80-7 .80 Not Available [address], [address], 09/25/2024 01:06:51 09/25/19 25 09/24/2024 CBC WITH AUTO DIFFE RENTI AL lymphocytes absolute 1.50 K/mcL 1.00-3 .20 Not Available [address], [address], 09/25/2024 01:06:51 09/25/1909/24/2024 CBC WITH AUTO DIFFE RENTI AL monocytes absolute 0.60 K/mcL 0.00-0 .80 Not Available [address], [address], 09/25/2024 01:06:51 09/25/1909/24/2024 CBC WITH AUTO DIFFE RENTI AL eosinophils absolute 0.20 K/mcL 0.00-0 .50 Not Available [address], [address], 09/25/2024 01:06:51 09/25/19 25 09/24/2024 CBC WITH AUTO DIFFE RENTI AL basophils absolute 0.10 K/mcL 0.00-0 .20 Not Available [address], [address], 09/25/2024 01:06:51 09/25/19 25 09/24/2024 CBC WITH AUTO DIFFE LETICIATI AL note See Report Chelsie dempsey [facility], [address] [place] [address] ord, Jud[place]ticu t [id number] Not Available [address], [address], 09/25/2024 01:06:51 09/25/19 25 09/24/2024 BASIC METAB OLIC PANEL sodium 145 mmol/ L 135-14 5 Not Available [address], [address], 09/25/2024 01:17:15 09/25/1909/24/2024 BASIC METAB OLIC PANEL potassium 4.2 mmol/ L 3.5-5. 1 Not Available [address], [address], 09/25/2024 01:17:15 09/25/1909/24/2024 BASIC METAB OLIC PANEL chloride 105 mmol/ L 98-107 Not Available [address], [address], 09/25/2024 01:17:15 09/25/1909/24/2024 BASIC METAB OLIC PANEL CO2 28 mmol/ L 24-32 Not Available [address], [address], 09/25/2024 01:17:15 09/25/1909/24/2024 BASIC METAB OLIC PANEL anion gap 12 5-14 Not Available [address], [address], 09/25/2024 01:17:15 09/25/19 25 09/24/2024 BASIC METAB OLIC PANEL glucose 81 mg/dL 70-199 Not Available [address], [address], 09/25/2024 01:17:15 09/25/19 25 09/24/2024 BASIC METAB OLIC PANEL BUN 15 mg/dL 9-20 Not Available [address], [address], 09/25/2024 01:17:15 09/25/19 25 09/24/2024 BASIC METAB OLIC PANEL creatinine 1.20 mg/dL 0.70-1 .30 Not Available [address], [address], 09/25/2024 01:17:15 09/25/19 25 09/24/2024 BASIC METAB OLIC PANEL eGFR 62 mL/mi n/1.7 3m2 >=60 Calcu latio n based on the C hroni c Kidne y Disea se Epide miolo gy Colla borat ion (CKD- EPI) equat ion refit w ithou t adjus tment for race. Calcu latio n based on the C hroni c Kidne y Disea se Epide miolo gy Colla borat ion (CKD- EPI) equat ion refit w ithou t adjus tment for race. Not Available [address], [address], 09/25/2024 01:17:15 09/25/1909/24/2024 BASIC METAB OLIC PANEL BUN/creatini ne ratio 12.5 12.0-2 0.0 Not Available [address], [address], 09/25/2024 01:17:15 09/25/19 25 09/24/2024 BASIC METAB OLIC PANEL calcium 9.6 mg/dL 8.4-10 .2 Not Available [address], [address], 09/25/2024 01:17:15 09/25/19 25 09/24/2024 COMPR EHENS JAROD METAB OLIC PANEL sodium 145 mmol/ L 135-14 5 Not Available [address], [address], 09/25/2024 01:17:21 09/25/19 25 09/24/2024 COMPR EHENS JAROD METAB OLIC PANEL potassium 4.2 mmol/ L 3.5-5. 1 Not Available [address], [address], 09/25/2024 01:17:21 09/25/19 25 09/24/2024 COMPR EHENS JAROD METAB OLIC PANEL chloride 105 mmol/ L 98-107 Not Available [address], [address], 09/25/2024 01:17:21 09/25/19 25 09/24/2024 COMPR EHENS JAROD METAB OLIC PANEL CO2 28 mmol/ L 24-32 Not Available [address], [address], 09/25/2024 01:17:21 09/25/19 25 09/24/2024 COMPR EHENS JAROD METAB OLIC PANEL anion gap 12 5-14 Not Available [address], [address], 09/25/2024 01:17:21 09/25/19 25 09/24/2024 COMPR EHENS JAROD METAB OLIC PANEL glucose 81 mg/dL 70-199 Not Available [address], [address], 09/25/2024 01:17:21 09/25/19 25 09/24/2024 COMPR EHENS JAROD METAB OLIC PANEL BUN 15 mg/dL 9-20 Not Available [address], [address], 09/25/2024 01:17:21 09/25/19 25 09/24/2024 COMPR EHENS JAROD METAB OLIC PANEL creatinine 1.20 mg/dL 0.70-1 .30 Not Available [address], [address], 09/25/2024 01:17:21 09/25/19 25 09/24/2024 COMPR EHENS JAROD METAB OLIC PANEL eGFR 62 mL/mi n/1.7 3m2 >=60 Calcu latio n based on the C hroni c Kidne y Disea se Epide miolo gy Colla borat ion (CKD- EPI) equat ion refit w ithou t adjus tment for race. Not Available [address], [address], 09/25/2024 01:17:21 09/25/1909/24/2024 COMPR EHENS JAROD METAB OLIC PANEL BUN/creatini ne ratio 12.5 12.0-2 0.0 Not Available [address], [address], 09/25/2024 01:17:21 09/25/19 25 09/24/2024 COMPR EHENS JAROD METAB OLIC PANEL calcium 9.6 mg/dL 8.4-10 .2 Not Available [address], [address], 09/25/2024 01:17:21 09/25/19 25 09/24/2024 COMPR EHENS JAROD METAB OLIC PANEL AST (SGOT) 12 unit/ L 5-40 Not Available [address], [address], 09/25/2024 01:17:21 09/25/19 25 09/24/2024 COMPR EHENS JAROD METAB OLIC PANEL ALT (SGPT) 11 unit/ L 7-52 Not Available [address], [address], 09/25/2024 01:17:21 09/25/19 25 09/24/2024 COMPR EHENS JAROD METAB OLIC PANEL alkaline phosphatase 96 unit/ L 34-104 Not Available [address], [address], 09/25/2024 01:17:21 09/25/19 25 09/24/2024 COMPR EHENS JAROD METAB OLIC PANEL total protein 6.8 g/dL 6.4-8. 5 Not Available [address], [address], 09/25/2024 01:17:21 09/25/19 25 09/24/2024 COMPR EHENS JAROD METAB OLIC PANEL albumin 4.5 g/dL 3.5-5. 0 Not Available [address], [address], 09/25/2024 01:17:21 09/25/19 25 09/24/2024 COMPR EHENS JAROD METAB OLIC PANEL total bilirubin 0.9 mg/dL 0.3-1. 0 Not Available [address], [address], 09/25/2024 01:17:21 09/25/19 25 09/24/2024 IRON AND TIBC iron 83 mcg/d L 49-181 Not Available [address], [address], 09/25/2024 01:17:35 09/25/19 25 09/24/2024 IRON AND TIBC UIBC 205 mcg/d L 155-35 5 Not Available [address], [address], 09/25/2024 01:17:35 09/25/19 25 09/24/2024 IRON AND TIBC TIBC 288 mcg/d L 250-45 0 Not Available [address], [address], 09/25/2024 01:17:35 09/25/19 25 09/24/2024 IRON AND TIBC iron saturation 29 % 20-45 Not Available [address], [address], 09/25/2024 01:17:35 09/25/19 25 09/24/2024 IRON AND TIBC note See Report Chelsie belloy [employer]i [employer], [address] [place] [address] ord, [place] [address] Not Available [address], [address], 09/25/2024 01:17:35 04/23/20 24 04/23/2024 HbA1c (hemo globi n A1c), blood A1c 5.5 Not [address] [facility]_ctcma_f m_1 [address] [place] [address], [address], 04/23/2024 15:31:36 04/23/20 24 04/23/2024 gluco se, fasti ng, finge rstic k, blood (poin t of care) glucose 89 mg/dL 65-99 Not Available Ct_ctcma_f m_1 [address] [place] [address], [address], 04/23/2024 06:58:57 05/17/20 24 05/17/2024 gluco se, fasti ng, finge rstic k, blood (poin t of care) glucose 104 mg/dL 65-99 Not Available Ct_ctcma_f m_1 [address] [place] [address], [address], 05/17/2024 07:05:04 05/29/2005/29/2024 urina lysis , dipst ick Leukocytes Negati ve Not Available Ct_ctcma_fm _1 [address] [place] [address], [address], 05/29/2024 18:30:24 05/29/20 24 05/29/2024 urina lysis , dipst ick Nitrite negati ve Not Available Ct_ctcma_fm _[address] [place] [address], [place], [address], 05/29/2024 18:30:24 05/29/20 24 05/29/2024 urina lysis , dipst ick Urobilinogen Normal Not Available Ct_ct cma_fm_1 [address] [place] [address], [place], [address], 05/29/2024 18:30:24 05/29/20 24 05/29/2024 urina lysis , dipst ick Protein 3+ Not Available Ct_ctcma_f m_[address] [place] [address], [place], [address], 05/29/2024 18:30:24 05/29/20 24 05/29/2024 urina lysis , dipst ick pH 6.5 Not Available [facility]_ctcma_f m_[address] [place] [address], [place], [address], 05/29/2024 18:30:24 05/29/20 24 05/29/2024 urina lysis , dipst ick Blood Negati ve Not Available Ct_ctcma_fm _[address] [place] [address], [place], [address], 05/29/2024 18:30:24 05/29/20 24 05/29/2024 urina lysis , dipst ick Specific [place] 1.015 Not Available Ct_ctc ma_fm_[address] [place] [address], [place], [address], 05/29/2024 18:30:24 05/29/20 24 05/29/2024 urina lysis , dipst ick Ketone Negati ve Not Available [facility]ctcma_fm _[address] [place] [address], [place], [address], 05/29/2024 18:30:24 05/29/2005/29/2024 urina lysis , dipst ick Bilirubin Negati ve Not Available [facility]_ctcma_fm _[address] [place] [address], [place], [address], 05/29/2024 18:30:24 05/29/2005/29/2024 urina lysis , dipst ick Glucose Trace Not Available [facility] [address] [place] [address] [facility] [place], [address], 05/29/2024 18:30:24 05/29/2005/29/2024 urina lysis , dipst ick Appearance Slight ly Cloudy Not Available [facility]ctcma_fm _1 [address] [place] [facility] [address] [address], [place], [address], 05/29/2024 18:30:24 05/29/2005/29/2024 urina lysis , dipst ick Color Yellow Not Available Ct_ctcma_f m_[address] [address], [place], [address], 05/29/2024 18:30:24 05/29/20 24 05/29/2024 gluco se, fasti ng, finge rstic k, blood (poin t of care) glucose 96 mg/dL 65-99 Not Available [facility]_ctcma_f m_1 [address] [place] [address] [address], [place], [address], 05/29/2024 14:48:38 07/23/20 24 07/23/2024 HbA1c (hemo globi n A1c), blood A1c 5.8 Not Available [facility]_ctcma_f m_[address] [place] [address] [place], [place] [address]er [address] [address], [place], [address], 07/23/2024 06:51:54 07/23/20 24 07/23/2024 gluco se, fasti ng, finge rstic k, blood (poin t of care) glucose 85 mg/dL 65-99 Not Available [facility]_ctcma_f m_[address] [place] [address], [place], [address], 07/23/2024 06:51:53 09/24/19 25 09/24/2024 gluco se, fasti ng, finge rstic k, blood (poin t of care) glucose 100 mg/dL 65-99 Not Available Ct_ctcma_f m_[address] [place] [address], [place], [address], 09/24/2024 06:35:30 05/19/20 25 05/19/2025 HbA1c (hemo globi n A1c), blood HbA1C 5.0 Not Available [facility]ctcma_f m_[address], [place], [address], 05/19/2025 14:15:28 05/19/20 25 05/19/2025 gluco se, fasti ng, finge rstic k, blood (poin t of care) glucose 88 mg/dL 65-99 Not Available [facility]_ctcma_f m_[address] [address], [place], [address], 05/19/2025 14:14:55 10/03/19 25 10/03/2024 XR, chest , 2 view No observ ation record ed. [place] [place] ([facility]) [address], [place], [address], 10/07/2024 16:54:46 Result Notes None recorded. 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 diagnosis December 2008 recommend ed followup yearly 24-hour urine free cortisol or dexametha sone 1 mg 11 PM and check a.m. 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 Not Available [facility] 3 20:42:09 Spinal stenosis of lumbar region 28005798 Active 2014 Spinal stenosis, lumbar region, without neurogeni c claudicat milad Winston MD [address] [place] [address], [facility] Floor, [place], [address] , [place] [facility] 3 12:01:04 History of polyp of colon 836625006 Active 2015 History of colonic polyps Not Available [facility] 3 20:42:10 Benign paroxysma l positiona l vertigo 683453402 Active 2015 Benign paroxysma l positiona l vertigo due to bilateral vestibula r disorder Not Available [facility] 3 20:42:10 Bilateral hyperopia of eyes 78164428313 9100 Active 2016 Hypermetr opia of both eyes Not Available [facility] 3 20:42:09 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 4525611194 Active 2016 Open angle with borderlin e findings and low glaucoma risk in both eyes Not Available [facility] 3 20:42:10 Pain of knee region 4257304994 Active 2017 Acute pain of right knee Not Available [facility] 3 20:42:09 Lesion of face 695965615 Active 2018 Lesion of face Not Available [facility] 3 20:42:09 Vertigo 142604090 Active 2019 Vertigo Not Available [facility] 3 20:42:10 Aortic incompete nce, non-rheum atic 767617227 Active 2019 Nonrheuma tic aortic valve insuffici ency - Overview: Formattin g of this note might be different from the original. 04/26 see echo echo 08/28 no AI or Stas Winston MD [address] [place] [address], [address] [place] [address], [address] , [place] - [place] [facility] 3 11:51:02 Vitamin D deficienc y 72405757 Active 2019 Vitamin D deficienc y Not Available [facility] 3 20:42:10 Chronic kidney disease stage 3A 369277906 Active 2020 Stage 3a chronic kidney disease Stas Winston MD [address] [place] [address], [address] [place] [address], [place], [address] , [place] [facility] 5 14:33:36 Obese class I 56493464088 4107 Active 2021 Obesity (BMI 30.0-34.9 ) Not Available [facility] 3 20:42:09 Acute back pain with sciatica 945985255 Active 2021 Acute right-billy ed low back pain with sciatica Stas Winston MD [address] [place] [address], [address] [place] [address], [place], [address] , [place] - [facility] [place] 3 11:59:59 Obstructi ve sleep apnea syndrome 96239818 Active 2021 Obstructi ve sleep apnea syndrome Stas Winston MD [address] [place] [address], [place], [address] , [place] CT - [facility] 5 14:33:10 Increased frequency of urination 614428567 Active 2022 Stas Winston MD [address] [place] [address], [address] , [place] - [facility] 3 18:38:20 Jaw pain 262016375 Active 2022 Stas Winston MD [address] [place] [address], [address] , [place] - [facility] 3 12:19:49 Pain in fingers of bilateral hands 22643288355 036402 Active 2023 Stas Winston MD [address] [place] [address], [address] , [place] - [facility] 4 16:43:15 Essential hypertens ion 14531239 Active 2023 Stas Winston MD [address] [place] [address], [address] , [place] - [facility] 4 14:04:17 Bilateral pain of joint of hands 92849949627 002793 Active 2023 Stas Winston MD [address] [place] [address], [address] , [place] - [facility] 4 21:08:22 Swelling of lower leg 623733817 Active 2023 Stas Winston MD [address] [place] [address], [address] [place] [address], [address] , [place] - [facility] 4 14:08:44 Edema of lower extremity 214186073 Active 2023 Stas Winston MD [address] [place] [address], [address] [place] [address], [place], [address] , [place] - [facility] 14:09:08 Persisten t cough 180741343 Active 2024 Stas Winston MD [address] [place] [address], [address] [place] [address], [place], [address] , [place] - [facility] 14:34:20 Problem Notes None recorded. Procedures Surgical History Date Name Laterality Status Provider Name and Address Organization Details Recorded Time 05/19/20 25 AWV - male prevention plan completed Stas Winston MD [address] [place] [address], [address] [place] [address], [place], [address], [place] - [facility] 05/19/2025 14:49:10 05/19/20 25 AWV - safety evaluation completed Sepideh Whiting CT - [facility] 05/19/2025 10:37:08 05/17/20 24 AWV - male prevention plan completed Stas Winston MD [address] [place] [address], [address] [place] [address], [place], [address], [place] - [facility] 05/17/2024 15:09:54 05/17/20 24 Advance Care Planning Consultation completed Stas Winston MD [address] [place] [address], [address] [place] [address], [place], [address], [place] - [facility] 05/17/2024 15:11:32 05/17/20 24 AWV - safety evaluation completed Conchis Knight CT - CT [facility] 05/17/2024 07:04:45 02/18/20 16 Colonoscopy completed Conchis Patoine CT - CT [facility] 10/03/2023 08:59:06 total knee replacement completed Stas Winston MD [address] [place] [address], [address] [place] [address], [place], [address], [place] - [facility] 10/03/2023 13:49:41 Lumbar Spine Surgery completed Stas Winston MD [address] [place] [address], [address] [place] [address], [place], [address], [place] - [facility] 10/03/2023 13:50:33 Imaging Results None recorded. Procedure Notes None recorded. Medical Equipment None Reported. Allergies Allergen ID Allergen Name Allergen Category Reaction Reaction Severity Criticality Documentation Date Start Date Code Code System Note Provider Name and Address Organization Details Recorded Time 627253 dapaglifl ozin propanedi ol medicatio n Not available Not available Not available 12/02/20222022 30050 66 RxNorm Nause a dizzi ness Not Available [facility] 3 05:50:09 741216 Jardiance medicatio n Not available Not available Not available 12/08/2022 16565 59 RxNorm Urina ry frequ ency Stas Winston MD [address] [place] [address], [address] Floor, [place], [address], CT - [facility] 18:40:09 583878 empaglifl ozin medicatio n Not available Not available Not available 03/08/20232022 72873 53 RxNorm Frequ ency Not Available [facility] 3 19:21:50 Medications Name Sig Start Date Stop Date Status Note LastModified by Organization Details LastModified Time onetouch delica plus lancing device [facility] active Not Available Not Available Not Available onetouch delica plus lancets extra fine 33g misc 11/16 completed Not Available Not Available Not [...] and Address Organization Details Last Updated DateTime 5 180.3 cm 31.7 kg/m2 050768. 19 g 98 /min 96 % 150/70 mm[Hg] Conchis Knight [facility] 5 13:33:06 Date Recorded Body height Body mass index (BMI) Body weight Heart rate Oxygen saturation Systolic And Diastolic Provider Name and Address Organization Details Last Updated DateTime 4 180.3 cm 33.6 kg/m2 928695. 12 g 87 /min 99 % 136/60 mm[Hg] Conchis Knight [facility] 4 15:03:38 Date Recorded Body height Body mass index (BMI) Body weight Heart rate Oxygen saturation Systolic And Diastolic Provider Name and Address Organization Details Last Updated DateTime 5 180.3 cm 29.4 kg/m2 89323.9 9 g 83 /min 98 % 117/78 mm[Hg] Sepideh KeenanFridanick [facility] 5 14:10:17 Date Recorded Systolic And Diastolic Provider Name and Address Organization Details Last Updated DateTime 05/29/2024 128/82 mm[Hg] Liliana Ptael APRN [address] [place] [address], [address] [place] [address], [address], [facility] 05/29/2024 15:11:34 Date Recorded Body height Body mass index (BMI) Body weight Heart rate Oxygen saturation Provider Name and Address Organization Details Last Updated DateTime 05/29/2024 180.3 cm 33.5 kg/m2 456596.1 7 g 90 /min 98 % Cindi Jeevan [facility] 4 14:49:56 Date Recorded Systolic And Diastolic Provider Name and Address Organization Details Last Updated DateTime 07/23/2024 144/82 mm[Hg] Stas Winston MD [address] [place] [address], [address] Floor, [place], [address], [facility] 07/23/2024 15:22:31 Date Recorded Body height Body mass index (BMI) Body weight Heart rate Oxygen saturation Systolic And Diastolic Provider Name and Address Organization Details Last Updated DateTime 4 180.3 cm 32.2 kg/m2 142865. 84 g 88 /min 95 % 150/78 mm[Hg] Conchis Mcdanielsnell [facility] 4 14:46:42 Social History Question Answer Notes LastModified by Organizat ion Details LastModified Time Tobacco Smoking Status Former Smoker Not Available [facility] 12/02/2022 19:47:30 When Did You Quit Smoking? 16+yearssinc elastcigaret te [email or web address] Information not available 11/17/2023 What Was The Date Of Your Most Recent Tobacco Screening? 2024 [email or web address] Information not available 2024 How Many Children Do You Have? 3 Information not available 05/19/2025 What Is Your Current Pack Years? 10packyears Information not available 11/17/2023 What Is Your Relationship Status? Information not available 05/17/2024 How Much Tobacco Do You Smoke? 1 PPW [email or web address] Information not available 11/17/2023 Has Tobacco Cessation Counseling Been Provided? Yes [email or web address] Information not available 11/17/2023 On What Date Was Tobacco Cessation Counseling Provided? 11/17/2023 [email or web address] Information not available 11/17/2023 How Many Years Have You Smoked Tobacco? 7 [email or web address] Information not available 11/17/2023 Sex: Male Functional Status Question Answer Note LastModified by Organization D etails LastModified Time Do you or have you ever used any other forms of tobacco or nicotine? No [email or web address] Information not available 11/17/2023 What is your [...] trivalent, PF 5 completed Stas Winston MD [address] [place] [address], [address] [place] [address], [place], [address], CT - [facility] 05/19/2025 14:40:45 zoster recombinant 1 completed Liliana Patel APRN [address] [place] [address], [address] [place] [address], [place], [address], [facility] 05/29/2024 12:03:27 zoster recombinant 9 completed Liliana Patel, WOOL SAMPLER [address] [facility], [address] [place] [address], [address] [place] [address], [facility] 05/29/2024 12:03:27 COVID-19, mRNA, LNP-S, bivalent, PF, 30 mcg/0.3 mL dose 2 completed Liliana Patel, WOOL SAMPLER [address] [facility], [address] [place] [address], [place], [place], [address] [place] [address], [facility] 05/29/2024 12:03:27 Tdap 1 completed Liliana Patel, WOOL SAMPLER [address] [place] [address], [address] [place] [address], [address] [place] [address], [facility] 05/29/2024 12:03:27 Influenza, adjuvanted, trivalent, PF 4 completed Stas Winston MD [address] [place] [address], [address] [place] [address], [address] [place] [address], [facility] 04/23/2024 16:34:06 RSV, recombinant, protein subunit RSVpreF, adjuvant reconstituted, 0.5 mL, PF 3 completed Not Available [facility] 05/19/2025 13:44:20 COVID-19, mRNA, LNP-S, PF, jigar-sucrose, 30 mcg/0.3 mL 3 completed Not Available [facility] 05/19/2025 13:44:20 COVID-19, mRNA, LNP-S, PF, jigar-sucrose, 30 mcg/0.3 mL 4 completed Not Available [facility] 05/19/2025 13:44:20 pneumococcal polysaccharide PPV23 3 completed Not Available [facility] 12/02/2022 19:38:39 zoster live 7 completed Not Available [facility] 12/02/2022 19:38:40 Td (adult), 5 Lf tetanus toxoid, preservative free, adsorbed 1 completed Not Available [facility] 12/02/2022 19:38:40 pneumococcal polysaccharide PPV23 8 completed Not Available [facility] 12/02/2022 19:38:40 Tdap 1 completed Not Available [facility] 12/02/2022 19:38:40 Pneumococcal conjugate PCV 13 5 completed Not Available [facility] 12/02/2022 19:38:40 Influenza, split virus, trivalent, preservative 5 completed Not Available [facility] 12/02/2022 19:38:41 Influenza, split virus, trivalent, preservative 6 completed Liliana Patiño Jorge, WOOL SAMPLER [address] [facility], 1st Floor, [place], [address], CT - CT [facility] 05/29/2024 12:03:27 Influenza, split virus, trivalent, preservative 7 completed Liliana Patel, WOOL SAMPLER [address] [facility], 1st Floor, [place], [address], CT - [facility] 05/29/2024 12:03:27 Influenza, adjuvanted, trivalent, PF 8 completed Not Available [facility] 12/02/2022 19:38:50 Influenza, adjuvanted, trivalent, PF 9 completed Not Available [facility] 12/02/2022 19:38:59 Influenza, adjuvanted, quadrivalent, PF 0 completed Not Available [facility] 12/02/2022 19:39:06 COVID-19, mRNA, LNP-S, PF, 30 mcg/0.3 mL dose 1 completed Not Available [facility] 12/02/2022 19:39:06 COVID-19, mRNA, LNP-S, PF, 30 mcg/0.3 mL dose 1 completed Not Available [facility] 12/02/2022 19:39:09 COVID-19, mRNA, LNP-S, PF, 30 mcg/0.3 mL dose 1 completed Not Available [facility] 12/02/2022 19:39:14 Influenza, adjuvanted, quadrivalent, PF 1 completed Not Available [facility] 12/02/2022 19:39:17 Influenza, adjuvanted, quadrivalent, PF 2 completed Not Available [facility] 12/02/2022 19:39:35 Pneumococcal conjugate PCV20, polysaccharide AQS249 conjugate, adjuvant, PF 3 completed Kathi Marley null, CT - [facility] 03/20/2023 12:03:14 Influenza, adjuvanted, quadrivalent, PF 3 completed Stas Winston MD [address] [place] [address], 1[address] Floor, [place], [address], CT - CT [facility] 05/25/2023 09:35:10 Past Encounters Encounter ID Performer Location Encounter Start Date Encounter Closed Date Diagnosis/Indication Diagnosis SNOMED-CT Code Diagnosis ICD10 Code Diagnosis IMO Codes Diagnosis Note [id number] Stas Winston MD [facility]_ FM_[address] [place] [address] 12/09/2022 11:33:07 12/09/2022 12:17:56 Diabetes mellitus 18179654 E11.9 Jaw pain 000424563 R68.8 4 [id number] Stas Winston MD [facility]_ FM_[address] [place] [address] [place] [address] 03/20/2023 10:44:53 03/20/2023 12:04:43 Type 2 diabetes mellitus without complication 684117908 E11.9 Chronic ki dney disease stage 3A 004418487 N18.31 Hyperlipidemia 15373614 E78.5 Hypertensive disorder 38 744563 I10 [id number] Stas Winston MD [facility]_ [place]_[address] [address] [place] [address] 05/25/2023 09:28:36 05/25/2023 09:31:25 Vaccination given 757316435 Z23 [id number] Stas Winston MD [facility]_ [place]_[address] [address] [place] [address] 10/03/2023 12:54:53 10/03/2023 14:23:46 Diabetes mellitus 03571802 E11.9 Hypertensive disorder 38 731314 I10 Hyperlipidemia 05744782 E78.5 Obstructiv e sleep apnea syndrome 48209886 G47.33 Pain in fi ngers of bilateral hands 6151022491 3853285 M79.644 Chronic ki dney disease stage 3A 406071684 N18.31 Essential hypertension 54512349 I10 [id number] Stas Winston MD [facility]_ _[address] [address] [place] [address] 10/12/2023 15:55:17 10/12/2023 16:50:48 Diabetes mellitus 87659882 E11.9 Essential hypertension 62381652 I10 Pain of knee region 1003 306872 M25.561 Pain in fi ngers of bilateral hands 6678251512 2594420 M79.166 [id number] Stas Winston MD [facility]_ _[address] [place] [address] [place] [address] 11/17/2023 12:54:00 11/17/2023 13:54:25 Diabetes mellitus 55498652 E11.9 Chronic ki dney disease stage 3A 496616598 N18.31 Hypertensive disorder 38 685496 I10 Pain in fi ngers of bilateral hands 0525026006 5548474 M79.771 [id number] Stas Winston MD CT_[facility]_ _[address] [place] [address] [place] [address] [place], [place] [address] 2024 13:22:25 2024 15:20:05 Diabetes mellitus 05777937 E11.9 Preoperati ve cardiovascular examination 353030342 Z01.810 Hypertensive disorder 38 364075 I10 Obstructiv e sleep apnea syndrome 38165573 G47.33 Chronic ki dney disease stage 2 896728540 N18.2 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 0218651284 08 E11.22 Edema of l ower extremity 380746176 R60.0 Aortic inc ompetence, non-rheumatic 844081471 I35.1 Essential hypertension 03670803 I10 [id number] Stas Winston MD [facility]_ _[address] [place] [address] [place] [address] [place], [place] [address] 04/23/2024 15:16:22 04/23/2024 16:38:17 Diabetes mellitus 24751722 E11.9 Influenza vaccine needed 9635067614 106 Z23 Chronic ki dney disease stage 3A 099007862 N18.31 Hypertensive disorder 38 734185 I10 [id number] Stas Winston MD [facility]_ FM_[address] [place] [address] [place] [address] [place], [place] [address] 05/17/2024 14:43:11 05/17/2024 15:15:31 Adult health examination 985791683 Z00.00 Diabetes mellitus 454247 09 E11.9 Chronic ki dney disease stage 3A 403265023 N18.31 Hypertensive disorder 38 496019 I10 [id number] Liliana Kaylyn Patel APRN [facility]_ FM_[address] [place] [address] [place] [address] [place] [address] 05/29/2024 14:18:27 05/29/2024 15:15:32 Low back pain 904761489 M54.50 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 18822395 M48.061 Diabetes mellitus 991733 09 E11.9 Hypertensive disorder 38 033677 I10 [id number] Stas Winston MD [facility]_ FM_[address] [place] [address] [place] [address] [place] [address] 07/23/2024 14:19:15 07/23/2024 15:32:15 Diabetes mellitus 12514076 E11.9 Chronic ki dney disease stage 3A 036757616 N18.31 Hyperlipidemia 59075219 E78.5 Hypertensive disorder 38 508204 I10 Essential hypertension 69528775 I10 [id number] Stas Winston MD [facility]_ _[address] [place] [address] [place] [address] [place], [place] [address] 09/24/2024 13:14:07 09/24/2024 14:58:26 Diabetes mellitus 78555870 E11.9 Chronic ki dney disease stage 3A 966476465 N18.31 Hypertensive disorder 38 915502 I10 Persistent cough 7358075 02 R05.3 877468 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 5205070152 08 E11.22 Chronic ki dney disease stage 3B 182999985 N18.32 [id number] Stas Winston MD [facility]_ FM_12 [place] [address] [facility] [address] [place] [address] 05/19/2025 13:42:49 05/19/2025 14:46:01 Adult health examination 083095350 Z00.00 3770640 Diabetes mellitus 445501 09 E11.9 Requires i nfluenza virus vaccination 585471652 Z23 3192495 Hypertensive disorder 38 233475 I10 Obstructiv e sleep apnea syndrome 65117018 G47.33 Chronic ki dney disease stage 3A 963286340 N18.31 Hyperlipidemia 11270325 E78.5 Health Concerns Section Related Observation LastModified by Organization Detai ls LastModified Time None Recorded Concern Status LastModified by Organization Details LastModified Time None Recorded Advance Directives Directive None Recorded Payers Insurance Date Sequence Insurance Name Policy Number Policy [place] Covered Member ID [place] Member ID Guarantor Name 05/26/2025 1 [facility] OPEN ACCESS (CT RESIDENT ONLY) [id number] Emigdio Zambrano [id number] Emigdio Zambrano 09/13/2024 1 [facility] (MEDICARE REPLACEMENT/ADV ANTAGE - HMO) [id number] Emigdio Zambrano [id number] Emigdio Zambrano Notes Date Note Type Note Provider Name and Address Organization Details Recorded Time 4 text/html Medicare Annual Wellness Visit Health Risk AssessmentReported by PatientSocial/Behavioral HistoryFor diet and nutrition, patient reportshealthy dietandno dental changes. For medication review, patient reportshas medications at home and can afford medicationsandtaking medications as prescribed and directed. For fracture risk, patient reportsno history of fractures,no recent explained fracture,no sudden unexplained fractures, andno previous musculoskeletal injuries. For physical activity, patient reportsexercises on a regular basisandgood physical condition. For sexual activity, patient reportsdenies any difficulty. For current level of pain, patient reportsno pain: 0/10. For behavioral history, patient reportsdenies use of tobacco or any other nicotine delivery product (i.e., e-cigarette, vaping or chewing tobacco) in past 12 months,denies alcohol use or practices limited (social only) alcohol use,denies misuse of prescription medications, anddenies drug use, including marijuana, cocaine or crack, heroin, methamphetamine (crystal meth), hallucinogens, ecstasy/mdma.Mental Status:For depression risk, patient reportsassessed by phq 2/9, see results.Functional AbilityFor home safety, patient reportsdoes not have hand bars in the bathroom/showerbut reportsno unsafe lupillo hazzards,no unsafe stairs,no unsafe gas appliances,working smoke/co detectors,use of seatbelts,no vision or hearing loss while driving,no fire arms,good lighting in the home, andreviewed sun protection. For hearing, patient reportsno loss of hearing. For vision, patient reportsno vision problems. For activities of daily living, patient reportsable to bathe with limited or no assistance,able to contol urination and bowels,able to dress with limited [...] use the phone with limited or no assistance, andable to use public transportation. For falls risk assessment, patient reportsassessed by lisa fall risk, see result. AWV Stas Winston MD [address] [place] [address], [address] [place] [address], [address], [facility] 05/17/2024 15:19:08 4 text/html Emigdio Zambrano is a 79 yo m w pmhx dm, htn, ckd3a, hld, mila, lumbar stenosis here today w c/o back pain. Approx 1 wk ago he c/o lower back ache that got progressively worse. Denies radiation, saddle paresthesia, urinary/bowel incontinence, trauma. Has walker that he uses. Back pain worse when he lays down at night. Healing from a left knee replacement but this is unrelated. Heating pad does help and tylenol helps a little bit. Denies nsaid use. Liliana Patel, WOOL SAMPLER [address] [facility], 1st Floor, [place], [address], [place] [facility] 05/29/2024 18:39:19 4 text/html Subjective patient comes in for diabetes and hypertension. Patient has history of lumbar surgery. Uses a walker. Also had knee replacement. Knee still bothers him some. Without chest pain shortness of breath Blood pressure 150/78 lungs are clear heart without murmurs or gallops see repeat blood pressure A1c 5.8 Assessment #1 diabetes excellent control #2 hypertension in adequate control we will increase carvedilol to 12.5 mg twice a day return office in 2 months Stsa Winston MD [address] [place] [address], [address] Floor, [place], [address], CT - [facility] 07/23/2024 15:28:25 5 text/html SubjectivePatient reports he has had a dry cough for about 4 weeks. Denies start of physical hold. Feels like has mucus in his chest but has not brought up anything.Denies fever chills cough. Has lost some weight because he is now on Mounjaro.History of diabetes chronic kidney disease. Never tolerated SGLT2 inhibitors Blood pressure 150/70 lungs are clear heart without murmurs or gallops extremities without edema nodes are negativeAbdomen soft without organomegaly Assessment #1 cough x 4 weeks duration. Would like a chest x-ray. Does not improve over the next few weeks might even consider CAT scan #2 chronic kidney disease lites check renal function #3 diabetes tolerating Mounjaro. #4 hypertension systolic blood pressure up today. Will check old records to see why patient is not on an KATHARINE inhibitor or an ARB Stas Winston MD [address] [place] [address], [address] Floor, [place], [address], [place] - [facility] 09/24/2024 17:00:00 5 text/html Medicare Annual Wellness Visit Health [...] of pain, patient reportssevere pain: 6/10 to 910. For behavioral history, patient reportsdenies use of tobacco or any other nicotine delivery product (i.e., e-cigarette, vaping or chewing tobacco) in past 12 months,denies alcohol use or practices limited (social only) alcohol use,denies misuse of prescription medications, anddenies drug use, including marijuana, cocaine or crack, heroin, methamphetamine (crystal meth), hallucinogens, ecstasy/mdma. For fatigue, patient reportsdenies fatigue.Mental Status:For depression risk, patient reportsassessed by phq 09/15, see results. For orientation, patient reportsno disorientation [...] few days. Without trauma Stas Winston MD [address] [place] [address], [address] Floor, [place], [address], CT - [facility] 05/19/2025 14:50:59
--- OUTSIDE RECORDS SUMMARY | 2025-06-27 12:34 | XMS_ITS | Encounter Summary ---
Author Organization [facility] Address [address] [place] [address] Care Team Providers Care Sewing Demonstrator Name Role Phone Stas Winston MD Primary Care Provider Encounter Details Date Type Department Care Team (Late st Contact Info) Description 11/23/2023 Scanned Document [facility] Department [facility] [place] [address] [place] [address] Elissa Lay MD [address] [place] [address] Social History Tobacco Use Types Packs/Day Years [...] progress Pt. 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
--- OUTSIDE RECORDS SUMMARY | 2025-06-27 12:34 | XMS_ITS | Data Portability ---
Author Organization [place] [facility] [place] Address [address] [place] [address] Care Team Providers Care Preforms Laminator Name Role Phone FELIX ROMAN Primary Care Provider [phone] FELIX ROMAN Primary Care Provider Assessment Encounter Date Assessment Date Assessment LastModified by Organization Details LastModified Time 12/21/2023 12/21/2023 INTERIM HISTORY: The patient returns after completing the electrodiagnostic study to evaluate the bilateral carpal tunnel syndrome. Symptoms persist and are slightly more pronounced with the right hand and wrist with the addition of mild swelling and stiffness. EXAMINATION OF THE RIGHT UPPER EXTREMITY: Skin is intact. There is a full functional range of motion of the cervical spine, shoulder, elbow, forearm, wrist and thumb. Composite flexion for the digits slightly limited. There is minimal swelling in the digits with enlargement of the IP joints. There are no scars or skin abnormalities. The elbow reveals no tenderness at the medial epicondyle. There is no tenderness along the course of the ulnar nerve, and there is no subluxation of the ulnar nerve. There is no tenderness at the lateral epicondyle or at the origin of the extensor musculature. There is no tenderness at the proximal extent of the supinator muscle. There is no tenderness or crepitus at the radial head. There is no tenderness at the olecranon or the olecranon fossa. There is no tenderness along the biceps and triceps tendons. The elbow is stable. The forearm reveals no tenderness throughout the flexor pronator mass. There is no tenderness along the course of the median nerve in the proximal/mid forearm. There is no tenderness along the flexor carpi radialis, the flexor carpi ulnaris and the extensor carpi ulnaris. There is no tenderness over the first extensor compartment and the Siria's test is negative. There is no evidence for an intersection syndrome.There is no tenderness at the shafts of the radius and ulna. There is no tenderness along the interosseous membrane. The wrist reveals no tenderness at the radial styloid or the distal radius. There is no tenderness or instability at the distal radioulnar joint. There is no tenderness at the ulnar styloid. There is no tenderness at the STT joint. There is no tenderness at the scaphoid. There is no tenderness or instability at the scapholunate joint. There is no tenderness over the lunate. There is no tenderness or instability at the lunotriquetral joint. There is no tenderness at the ulnocarpal joint. There is no tenderness at the pisiform or the pisotriquetral joint. There is no tenderness at the scaphoid tubercle or the hook of the hamate. There is no tenderness at the CMC joint of the thumb or the CMC joints of the digits. The hand reveals no tenderness in the region of the A1 pulleys of the fingers and thumb. There is no triggering or locking. There is no tenderness or instability at the MCP or IP joints. There is no tenderness throughout the metacarpal and thenar regions. The remainder of the hand is unremarkable. There is good strength throughout the upper extremity. There is no thenar or intrinsic muscle weakness or atrophy. There is a Tinel's sign over the median nerve at the wrist, and the Phalen's test is positive. There is no Tinel's sign over the median nerve in the proximal forearm, and there is no tenderness along the median nerve in the proximal forearm. There is no Tinel's sign over the ulnar nerve at the elbow and wrist. There is no evidence for a radial tunnel syndrome. All provocative testing for a thoracic outlet syndrome is negative. The biceps, triceps, and brachioradialis reflexes are present. Neurovascular status is intact. EXAMINATION OF THE LEFT UPPER EXTREMITY: Skin is intact. There is a full functional range of motion of the cervical spine, shoulder, elbow, forearm, wrist, fingers and thumb. There is no swelling. There are no scars or skin abnormalities. The elbow reveals no tenderness at the medial epicondyle. There is no tenderness along the course of the ulnar nerve, and there is no subluxation of the ulnar nerve. There is no tenderness at the lateral epicondyle or at the origin of the extensor musculature. There is no tenderness at the proximal extent of the supinator muscle. There is no tenderness or crepitus at the radial head. There is no tenderness at the olecranon or the olecranon fossa. There is no tenderness along the biceps and triceps tendons. The elbow is stable. The forearm reveals no tenderness throughout the flexor pronator mass. There is no tenderness along the course of the median nerve in the proximal/mid forearm. There is no tenderness along the flexor carpi radialis, the flexor carpi ulnaris and the extensor carpi ulnaris. There is no tenderness over the first extensor compartment and the Siria's test is negative. There is no evidence for an intersection syndrome.There is no tenderness at the shafts of the radius and ulna. There is no tenderness along the interosseous membrane. The wrist reveals no tenderness at the radial styloid or the distal radius. There is no tenderness or instability at the distal radioulnar joint. There is no tenderness at the ulnar styloid. There is no tenderness at the STT joint. There is no tenderness at the scaphoid. There is no tenderness or instability at the scapholunate joint. There is no tenderness over the lunate. There is no tenderness or instability at the lunotriquetral joint. There is no tenderness at the ulnocarpal joint. There is no tenderness at the pisiform or the pisotriquetral joint. There is no tenderness at the scaphoid tubercle or the hook of the hamate. There is no tenderness at the CMC joint of the thumb or the CMC joints of the digits. The hand reveals no tenderness in the region of the A1 pulleys of the fingers and thumb. There is no triggering or locking. There is no tenderness or instability at the MCP or IP joints. There is no tenderness throughout the metacarpal and thenar regions. The remainder of the hand is unremarkable. There is good strength throughout the upper extremity. There is no thenar or intrinsic muscle weakness or atrophy. There is a Tinel's sign over the median nerve at the wrist, and the Phalen's test is positive. There is no Tinel's sign over the median nerve in the proximal forearm, and there is no tenderness along the median nerve in the proximal forearm. There is no Tinel's sign over the ulnar nerve at the elbow and wrist. There is no evidence for a radial tunnel syndrome. All provocative testing for a thoracic outlet syndrome is negative. The biceps, triceps, and brachioradialis reflexes are present. Neurovascular status is intact. ELECTRODIAGNOSTIC STUDY: Performed by Dr. Lay dated December 08, 2023 reveals severe bilateral carpal tunnel syndrome with no response distal sensory latency median nerve bilaterally. Moderate prolongation distal motor latency bilaterally with the left median nerve slightly more involved. Sensory peripheral neuropathy as well. DISCUSSION: The results electrodiagnostic study discussed with the patient. Treatment options are discussed as well. Despite the sensory peripheral neuropathy, the patient definitely has significant compression median nerve bilaterally at the carpal tunnel. The patient elects to proceed with endoscopic possible open carpal tunnel release right wrist. The procedures, benefits, risks and alternatives are explained to the patient in detail, and consent is obtained. All of the patient's questions are answered. Surgery will be scheduled. He is informed despite successful decompression median nerve right wrist, he may have persistent numbness and tingling as a result of the severe damage affecting the nerve and with the sensory peripheral neuropathy. However, surgery should be successful in relieving the pain and discomfort and nocturnal symptoms and should hopefully improve the stiffness. However, some of the stiffness and swelling in the hand may be secondary to his arthritis affecting the IP joints. For now, the left carpal tunnel syndrome will be observed. Not available 12/21/2023 16:24:29 02/01/2024 02/01/2024 INTERIM HISTORY: The patient is 10 days status post endoscopic carpal tunnel release right wrist. Surgery has been successful in relieving his preoperative discomfort, nocturnal symptoms and the numbness and tingling in the right hand. However, he still complains of stiffness with the digits. EXAMINATION OF THE RIGHT HAND WRIST: Incision healed. No erythema or drainage. Minimal swelling. Mild enlargement and swelling digits. Nodes at the IP joints. Composite flexion limited. Neurovascular status is intact. RADIOGRAPHS: None DIAGNOSIS: Arthritis IP joints right hand DISCUSSION: Sutures are removed. The surgery has been successful in relieving the carpal tunnel symptoms. However, he is still plagued by stiffness in the right hand which most likely is related to the arthritis affecting the IP joints which was discussed with him prior to the surgery. He is referred to therapy for edema control and range of motion for the fingers related to the arthritis. Activities with the hand are restricted until he is 1 month from date of his surgery which will be February 21, 2024. He is scheduled for reevaluation at that time. Not available 02/01/2024 10:13:29 03/01/2024 03/01/2024 [facility] PROGRESS NOTE INTERIM HISTORY: The patient is now approximately 6 weeks status post endoscopic carpal tunnel release right wrist. Surgery has been successful in relieving his preoperative discomfort, nocturnal symptoms and the numbness and tingling in the right hand. However, he still complains of stiffness with the digits. Other than stiffness in his hand that continues to improve with physical therapy does not have any other complaints today EXAMINATION OF THE RIGHT HAND WRIST: Incision healed. No erythema or drainage. Minimal swelling. Mild enlargement and swelling digits. Nodes at the IP joints. Composite flexion limited to approximately 1 to 2 cm lack of flexion to distal palmar crease. Otherwise he has full extension of all fingers.. Neurovascular status is intact. RADIOGRAPHS: None DIAGNOSIS: Arthritis IP joints right hand DISCUSSION: Patient is doing very well following his carpal tunnel release surgery. He will return to all activities as tolerated. He will continue working with physical therapy and home exercises for range of motion. Will see him back in approximately 6 weeks for a progress check given his continued stiffness however he is very happy with his results. All his questions were answered today. Patient was seen and evaluated by Jaciel Vincent PA-C in indirect conjuction with Documenting Provider: Sue Stover MD . He/She agrees with history, physical examination, tests/diagnostic imaging, and treatment plan. Jaciel Vincent PA-C [facility] [email or web address] Not available 03/01/2024 14:46:43 04/24/2024 04/24/2024 [facility] PROGRESS NOTE Previous Visit (if applicable) 03/01/2024:Patient is doing very well following his carpal tunnel release surgery. He will return to all activities as tolerated. He will continue working with physical therapy and home exercises for range of motion. Will see him back in approximately 6 weeks for a progress check given his continued stiffness however he is very happy with his results. All his questions were answered today. IMPRESSION/PLAN : Emigdio returns to the office today now 3-month status post right carpal tunnel surgery. 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 Therefore, he will be referred back to hand therapy to work on range of motion. He was out of town for a while and states that he is now back in town for the time being and can focus on hand therapy. Otherwise he is happy with the surgical results. We will see him back in 6 weeks for repeat evaluation. We reviewed my findings at length with the patient today. We discussed the nature and etiology of this problem along with current treatment options. We discussed the expected course and outcomes and what to expect. We also discussed risks and benefits. All of their questions were answered today, and there was exhibited understanding and comprehension of all that was discussed. CC :right wrist 01/22/2024 ends 04/21 Interim History : The patient presents to [facility] today for repeat evaluation of his right hand and wrist following carpal tunnel surgery nearly 3 months ago. 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 He has been performing hand exercises at home with minimal improvement. Other than the stiffness that is worse during the morning he does have significant improvement in his hand symptoms following carpal tunnel release surgery. He has no other complaints today REVIEW OF SYSTEMS : Refer to HPI. Patient currently denies any chest pain, shortness of breath, headache, abdominal pain, numbness, tingling, or other musculoskeletal injuries. Also denies any recent infections including viral illnesses, weight loss, night sweats, fevers, chills, rigors, and body aches. Focused Physical Examination: Incision healed. No erythema or drainage. Minimal swelling. Mild enlargement and swelling digits. Nodes at the IP joints. Composite flexion limited to approximately 1 to 2 cm lack of flexion to distal palmar crease. However with multiple attempts and repetition he does gain more more flexion achieving near full composite flexion except for small limitations in the long and ring fingers. Otherwise he has full extension of all fingers.. Neurovascular status is intact. IMAGING/DIAGNOSTIC TESTING: See Discussion Notes Section Below WORKING DIAGNOSIS : Status post carpal tunnel release surgery Procedure : See Procedure Notes Section Below Patient was seen and evaluated by Jaciel Vincent PA-C in indirect conjuction with Documenting Provider: Sue Stover MD . He/She agrees with history, physical examination, tests/diagnostic imaging, and treatment plan. Jaciel Vincent PA-C [facility] Not available 04/24/2024 14:34:32 08/13/2024 08/13/2024 The above findin gs were discussed in detail today with the patient. He is about 7-month status post right endoscopic carpal tunnel release with Dr. Washburn, all preoperative symptoms have improved. He has mild stiffness of his ring finger likely due to arthritis. We discussed pathology and expected prognosis. At this point I do not think that continued therapy will be helpful for him. He should continue with home exercises, can do anti-inflammatories [id number], activity modification. He may always have a little stiffness in that finger. If it does become swollen or painful and not getting better with [id number] anti-inflammatories , we can consider cortisone injection. He will return to see me as needed. All of his questions were answered, he is in agreement the plan. [email or web address] Not available 08/14/2024 08:41:23 Plan of Treatment Reminders Order Date Submit Date Provider Last Modified By Organization Details Last Modified Time Details Appointments None recorded . Lab None recorded . Referral occupati onal therapis t referral - DOS: January 22, 2024 endoscop ic carpal tunnel release right wrist Complica marilin by pre-exis ting arthriti s IP joints right hand Frequenc y: 2 times per week for 6 weeks Edema control. Range of motion fingers and thumb. Local modaliti es. 2023 024 [email or web address] Not available 4 11:12:45 Procedures None recorded . Surgeries orthopae dic surgery - other (SURG) 2023 024 [email or web address] Not available 4 14:50:39 Imaging XR, finger(s ), 2 or more view 2024 025 [email or web address] [facility], [address], [place], [address], 5 17:24:50 Medication Orders None recorded . Patient TargetsNo targets recorded. Patient Instructions Encounter Date Encounter Id Patient Instructions Last Modified By Organization Details Last Modified Time 08/13/2024 [id number] views of the right ring finger were ordered and reviewed today, this demonstrates mild degenerative changes at the PIP and DIP joints with joint space narrowing and osteophyte formation. The MP joint is well-preserved. No other acute findings noted. [email or web address] Not available 08/14/2024 08:40:03 Reason for Referral Occupational Therapist Refer [facility] for Bilateral carpal tunnel syndrome DOS: January 22, 2024 endoscopic carpal tunnel release right wristComplicated by pre-existing arthritis IP joints right handFrequency: 2 times per week for 6 weeksEdema control.Range of motion fingers and thumb.Local modalities. Referring Physician: Velasquez Washburn, Orthopedic Surgery, Encounter Date: 02/01/2024 Results Created Date Observation Date Name Description Value Unit Range Abnormal Flag Note LastModifiedBy Organization Detail LastModifiedTime 11/29/19 XR, hand, 3 or more view No observ ation record ed. [email or web address] Not Available 2023 08:56:49 01/17/20 24 01/16/2024 US, liyale x, venjohn s, lower extre mity No observ ation record ed. [id number] [facility] [address] [place] [address], [place], [address], 01/17/2024 13:19:50 Result Notes None recorded. Problems Name Problem SNOMED Code Status Onset Date Resolution Date Notes Provider Name and Address Organization Details Recorded Time Hyperlipi demia 89168553 Active 2014 Hyperlipe lamar Not Available [facility] 5 23:54:07 Diabetes mellitus 47599211 Active 2014 Diabetes Not Available 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 5 23:54:09 Hypertens roselyn disorder 42780135 Active 2014 Hypertens ion Not Available [facility] 5 23:54:11 Benign neoplasm of adrenal gland 89447675 Active 2014 Adrenal benign neoplasm - Overview: Formattin g of this note might be different from the original. diagnosis December 2008 recommend ed followup yearly 24-hour urine free cortisol or dexametha sone 1 mg 11 PM and check a.m. cortisol normal less than 5 repeat imaging on occasion; Not Available [facility] 5 23:54:04 Anemia 278589317 Active 2014 Anemia, unspecifi ed Not Available [facility] 5 23:54:04 Allergic rhinitis 51847839 Active 2014 Allergic rhinitis Not Available 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 5 23:54:05 Spinal stenosis of lumbar region 71467393 Active 2014 Spinal stenosis, lumbar region, without neurogeni c claudicat ion Not Available [facility] 5 23:54:08 History of polyp of colon 699557151 Active 2015 History of colonic polyps Not Available [facility] 5 23:54:07 Benign paroxysma l positiona l vertigo 021336433 Active 2015 Benign paroxysma l positiona l vertigo due to bilateral vestibula r disorder Not Available 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 5 23:54:06 Bilateral hyperopia of eyes 49119616762 9100 Active 2016 Hypermetr opia of both eyes Not Available [facility] 5 23:54:06 Pain of knee region 8628646227 Active 2017 Acute pain of right knee Not Available [facility] 5 23:54:03 Lesion of face 321909067 Active 2018 Lesion of face Not Available [facility] 5 23:54:04 Vertigo 840644568 Active 2019 Vertigo Not Available [facility] 5 23:54:10 Aortic incompete nce, non-rheum atic 298463433 Active 2019 Nonrheuma tic aortic valve insuffici ency - Overview: Formattin g of this note might be different from the original. 04/26 see echo Not Available [facility] 5 23:54:03 Vitamin D deficienc y 65246539 Active 2019 Vitamin D deficienc y Not Available [facility] 5 23:54:05 Chronic kidney disease stage 3A 452003628 Active 2020 Stage 3a chronic kidney disease Not Available [facility] 5 23:54:05 Obese class I 63750469347 4107 Active 2021 Obesity (BMI 30.0-34.9 ) [facility] 5 23:54:09 Acute back pain with sciatica 898202219 Active 2021 Acute right-billy ed low back pain with sciatica Not Available [facility] 5 23:54:09 Obstructi ve sleep apnea syndrome 60820571 Active 2021 Obstructi ve sleep apnea Not Available [facility] 5 23:54:07 Former light tobacco smoker 19890421375 4102 Active 2022 Former light tobacco smoker Not Available [facility] 5 23:54:10 Pain of left knee joint 54259685985 4107 Active 2022 Brennen Soriano MD [address] [facility], [place], [address] , [place] [facility], P 3 06:42:30 History of left total knee replaceme nt 55113248036 39463 Active 2022 MARAL MONAHAN PA-C [address], [place], [address] , [place] [facility], P 3 13:15:35 History of right total knee replaceme nt 85022985689 45111 Active 2022 MARAL MONAHAN PA-C [address], [place], [address] , [place] [facility], P 3 13:15:36 Chest pain 33942369 Active 2022 Chest pain Not Available [facility] 5 23:54:06 Bilateral carpal tunnel syndrome 19465149843 240833 Active 2023 Velasquez Washburn MD [address], [place], [address] , [place] [facility], [facility] 4 13:48:08 Pain of left hand 59026882492 9103 Active 2023 Velasquez Washburn MD [address], [place], [address] , [place] [facility], P 4 14:09:15 Arthritis of joint of right hand Active 2023 Velasquez Washburn MD [address] [facility], [place], [address] , [place] [facility], P 4 10:06:16 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 Procedures Surgical History Date Name Laterality Status Provider Name and Address Organization Details Recorded Time 01/22/20 24 ORTHOPAEDIC SURGERY - OTHER (SURG) completed Tarsha Reza [facility] 01/23/2024 09:44:31 laminectomy completed Micheal Hayden [place] [facility] 12/14/2022 13:41:25 Knee Surgery completed Micheal Hayden [place] - [facility] 12/14/2022 13:41:34 Imaging Results None recorded. Procedure Notes None recorded. Medical Equipment None Reported. Allergies Allergen ID Allergen Name Allergen Category Reaction Reaction Severity Criticality Documentation Date Start Date Code Code System Note Provider Name and Address Organization Details Recorded Time 807309 dapaglifl ozin propanedi ol medicatio n Not available Not available Not available 04/29/20252022 09644 66 RxNorm Nause a dizzi ness Not Available [facility] 5 01:31:01 703846 empaglifl ozin medicatio n Not available Not available Not available 04/29/20252022 08018 53 RxNorm Frequ ency Not Available [facility] 5 01:31:02 3771 Farxiga medicatio n Not available Not available Not available 12/14/2022 90280 72 RxNorm Micheal Hayden null, [place] - [facility], [facility] 3 13:39:42 3772 Jardiance medicatio n Not available Not available Not available 12/14/2022 [id number] RxNorm Micheal Hayden null, [place] - [facility] 3 13:39:55 Medications Name Sig Start Date Stop Date Status Note LastModified by Organization Details LastModified Time onetouch delica plus lancets extra fine 33g misc active Not Available Not Available Not Available celecoxib 200 mg capsule Take 1 capsule (200 mg total) by mouth daily. 08/30 completed Not Available Not Available Not Available amoxicillin 500 mg capsule TAKE 4 CAPS 1 HOUR PRIOR TO DENTAL APPOINTME NT active Not Available Not Available No t Available atorvastati n 40 mg tablet Take 1 tablet (40 mg total) by mouth daily. 09/09 completed Not Available Not Available Not Available metformin 500 mg tablet TAKE 1 TABLET BY MOUTH AT BREAKFAST AND 2 TABLETS WITH DINNER active Not Available Not Available No t Available carvedilol 6.25 mg tablet TAKE 1 TABLET BY MOUTH TWICE A DAY active Not Available Not Available No t Available prednisone 10 mg tablet TAKE 3 TABLETS (30 MG TOTAL) BY MOUTH EVERY MORNING WITH BREAKFAST FOR 7 DAYS. 04/23 completed Not Available Not Available Not Available atorvastati n 20 mg tablet TAKE 1 TABLET BY MOUTH DAILY active Not Available Not Available No t Available tizanidine 4 mg tablet TAKE 1 TABLET BY MOUTH THREE TIMES A DAY 06/07 completed Not Available Not Available Not Available hydrocodone 5 mg-acetamin ophen 325 mg tablet Take 1 tab every 12 hours as needed for pain 04/25 completed Not Available Not Available Not Available meloxicam 15 mg tablet Take 1 tablet (15 mg total) by mouth daily. 01/07 completed Not Available Not Available Not Available lisinopril 20 mg tablet Take 20 mg by mouth every evening. 01/31 completed Not Available Not Available Not Available prednisone 20 mg tablet TAKE 2 TABLETS BY MOUTH EVERY DAY WITH FOOD 04/23 completed Not Available Not Available Not Available sennosides 8.6 mg-docusate sodium 50 mg tablet Take 1 tablet by mouth 2 (two) times a day. 01/07 completed Not Available Not Available Not Available methylpredn isolone 4 mg tablet TAKE 6 TABLETS ON DAY 1 DIRECTED ON PACKAGE AND DECREASE BY 1 TAB EACH DAY FOR A TOTAL OF 6 DAYS 2022 active Not Available Not Available Not Avai lable amlodipine 5 mg tablet Take 1 tablet (5 mg total) by mouth daily. active Not Available Not Available No t Available aspirin 81 mg tablet,odell yed release Take 1 tablet (81 mg total) by mouth 2 (two) times a day after meals. 2021 active Not Available Not Available Not Avai lable tramadol 50 mg tablet TAKE 1 TABLET(S) EVERY 6 HOURS NEEDED FOR PAIN 04/23 completed Not Available Not Available Not Available acetaminoph en 500 mg tablet Take 1,000 mg by mouth every 6 (six) hours as needed. 01/07 completed Not Available Not Available Not Available triamterene 37.5 mg-hydrochl orothiazide 25 mg capsule TAKE 1 CAPSULE BY MOUTH TWICE DAILY 04/23 completed Not Available Not Available Not Available amoxicillin 500 mg tablet Take 4 tabs 1 hour prior to dental appointme nt 2021 active Not Available Not Available Not Avai lable oxycodone-a cetaminophe n 5 mg-325 mg tablet TAKE 1 TABLET BY MOUTH EVERY 8 HOURS FOR UP TO 5 DAYS NEEDED FOR PAIN 04/23 completed Not Available [...] tablet TAKE 1 TABLET BY MOUTH DAILY active Not Available Not Available No t Available pantoprazol e 40 mg tablet,odell yed release Take 1 tablet (40 mg total) by mouth daily for 40 days. 05/29 completed Not Available Not Available Not Available methylpredn isolone acetate 40 mg/mL suspension for injection 07/21 completed Not Available Not Available Not Available lisinopril 10 mg tablet TAKE 1 TABLET BY MOUTH DAILY 09/29 completed Not Available Not Available Not Available lidocaine 5 % topical patch APPLY 1 PATCH BY TOPICAL ROUTE ONCE DAILY (MAY WEAR UP TO 12HOURS.) 08/13 completed Not Available Not Available Not Available ibuprofen 400 mg tablet Take 1 tablet (400 mg total) by mouth. 01/31 completed Not Available Not Available Not Available codeine 10 mg-guaifene sin 100 mg/5 mL Syrup Take 5 mL by mouth 4 (four) times a day as needed for cough. 05/29 completed Not Available Not Available Not Available gabapentin 300 mg capsule Take 1 capsule (300 mg total) by mouth 3 (three) times a day. 08/20 completed Not Available Not Available Not Available codeine 10 mg-guaifene sin 100 mg/5 mL oral liquid TAKE 5 ML BY MOUTH FOUR TIMES DAILY NEEDED 06/07 completed Not Available Not Available Not Available [...] DAY FOR A TOTAL OF 6 DAYS 04/23 completed Not Available Not Available Not Available colchicine 0.6 mg tablet TAKE 1 TABLET BY MOUTH EVERY DAY 01/31 completed Not Available Not Available Not Available ketoconazol e 2 % topical cream Apply topically 2 (two) times a day. 08/12 completed Not Available Not Available Not Available fluticasone propionate 50 mcg/actuati on nasal spray,suspe nsion spray or apply 1 spray inside Nose. active Not Available Not Available No t Available loratadine 10 mg tablet Take 10 mg [...] A DAY FOR 7 DAYS. SHAKE WELL 06/07 completed Not Available Not Available Not Available oxycodone 5 mg tablet Take 1 tablet (5 mg total) by mouth every 4 (four) hours as needed. 01/07 completed Not Available Not Available Not Available neomycin 3.5 mg/g-polymy jennifer B 10,000 unit/g-dexa meth 0.1 % eye oint APPLY 1/4 INCH STRIP INSIDE LOWER EYE LID TWICE A DAY FOR 7 DAYS 06/07 completed Not Available Not Available Not Available cholecalcif shawanda (vitamin D3) 25 mcg (1,000 unit) capsule Take 1,000 Units by mouth daily. 2020 active Not Available Not Available Not Avai lable cyclobenzap rine 5 mg tablet TAKE 1 TABLET EVERY DAY BY ORAL ROUTE AT BEDTIME FOR 21 DAYS, FOR PAIN. active Not Available Not Available No t Available diclofenac 1 % topical gel APPLY 2 GRAMS TO THE LOWER BACK BY TOPICAL ROUTE 4 TIMES PER DAY 08/13 completed Not Available Not Available Not Available hylan g-f 20 48 mg/6 mL intra-artic ular syringe 09/12 completed Not Available Not Available Not Available loratadine 10 mg capsule Take 1 caplet by mouth daily as needed. 01/07 completed Not Available Not Available Not Available OneTouch Verio test strips active Not Available Not Available Not Available Farxiga 10 mg tablet TAKE 1 TABLET BY MOUTH EVERY DAY 06/07 completed Not Available Not Available Not Available Jardiance 10 mg tablet TAKE 1 TABLET BY MOUTH EVERY DAY 06/07 completed Not Available Not Available Not Available Shingrix (PF) 50 mcg/0.5 mL intramuscul ar suspension, kit ADM 0.5ML IM UTD 01/07 completed Not Available Not Available Not Available OneTouch Delica Plus Lancet 33 gauge USE WITH METER TO TEST ONCE DAILY active Not Available Not Available No t Available OneTouch Delica Plus Lancing Device kit USE TO TEST SUGAR DAILY active Not Available Not Available No t Available QuickVue At-Home COVID-19 Test kit USE DIRECTED 08/13 completed Not Available Not Available Not Available aspirin 81 mg capsule Take 1 capsule every day by oral route. active Not Available Not Available No t Available Mounjaro 7.5 mg/0.5 mL subcutaneou s pen injector INJECT 7.5 MG SUBCUTANE OUSLY WEEKLY active Not Available Not Available No t Available Mounjaro 5 mg/0.5 mL subcutaneou s pen injector INJECT 0.5 ML SUBCUTANE OUSLY EVERY WEEK 08/13 completed Not Available Not Available Not Available Mounjaro 2.5 mg/0.5 mL subcutaneou s pen injector INJECT 2.5 MG SUBCUTANE OUSLY WEEKLY 08/13 completed Not Available Not Available Not Available Vitals Date Recorded Body height Provider Name an d Address Organization Details Last Updated DateTime 08/13/2024 180.34 cm Juani Patel [facility] 08/13/2024 15:16:41 Date Recorded Body height Body mass index (BMI) Body weight Provider Name and Address Organization Details Last Updated DateTime 03/01/2024 180.34 cm 36.4 kg/m2 449231.61 diana Maria Esther Solomon [facility] 03/01/2024 14:36:13 Date Recorded Body height Body mass index (BMI) Body weight Provider Name and Address Organization Details Last Updated DateTime 04/24/2024 180.34 cm 36.4 kg/m2 923151.61 diana Ritter [facility] 04/24/2024 14:23:49 Social History Question Answer Notes LastModified by Organizat ion Details LastModified Time Tobacco Smoking Status Former Smoker Fermín james, [facility] 05/01/2023 12:54:51 When Did You Quit Smoking? 16+yearssinc elastcigaret te [email or web address] Information not available 05/01/2023 How Many Years Have You Smoked Tobacco? 13 [email or web address] Information not available 05/01/2023 Sex: Unknown Functional Status Question Answer Note LastModified by Organizat ion Details LastModified Time Do you use any illicit or recreational drugs? No [email or web address] Information not available 05/01/2023 Do you or have you ever used any other forms of tobacco or nicotine? No [email or web address] Information not available 05/01/2023 What is your level of alcohol consumption? None [email or web address] Information not available 05/01/2023 Mental Status None recorded. Family History Nothing Reported. Medical History Condition Response Diabetes Y Anemia Y Hypertension Y High Cholesterol Y Immunizations Vaccine Type Date Status Note Provider Nam e and Address Organization Details Recorded Time pneumococcal polysaccharide PPV23 8 completed Not Available [facility] 04/29/2025 05:30:22 Influenza, split virus, trivalent, preservative 6 completed Not Available [facility] 04/29/2025 05:30:23 Pneumococcal conjugate PCV 13 5 completed Not Available [facility] 04/29/2025 05:30:23 zoster live 7 completed Not Available [facility] 04/29/2025 05:30:23 Influenza, split virus, trivalent, preservative 7 completed Not Available [facility] 04/29/2025 05:30:23 Tdap 1 completed Not Available [facility] 04/29/2025 05:30:23 Td (adult), 5 Lf tetanus toxoid, preservative free, adsorbed 1 completed Not Available [facility] 04/29/2025 05:30:23 pneumococcal polysaccharide PPV23 3 completed Not Available [facility] 04/29/2025 05:30:24 Influenza, split virus, trivalent, preservative 5 completed Not Available [facility] 04/29/2025 05:30:24 Influenza, adjuvanted, trivalent, PF 8 completed Not [facility] 04/29/2025 05:30:24 Influenza, adjuvanted, trivalent, PF 9 completed Not Available [facility] 04/29/2025 05:30:24 Influenza, adjuvanted, quadrivalent, PF 0 completed Not Available [facility] 04/29/2025 05:30:24 COVID-19, mRNA, LNP-S, PF, 30 mcg/0.3 mL dose 1 completed Not Available [facility] 04/29/2025 05:30:24 COVID-19, mRNA, LNP-S, PF, 30 mcg/0.3 mL dose 1 completed Not Available [facility] 04/29/2025 05:30:24 COVID-19, mRNA, LNP-S, PF, 30 mcg/0.3 mL dose 1 completed Not Available [facility] 04/29/2025 05:30:25 Influenza, adjuvanted, quadrivalent, PF 1 completed Not Available [facility] 04/29/2025 05:30:25 Influenza, adjuvanted, quadrivalent, PF 2 completed Not Available [facility] 04/29/2025 05:30:25 Past Encounters Encounter ID Performer Location Encounter Start Date Encounter Closed Date Diagnosis/Indication Diagnosis SNOMED-CT Code Diagnosis ICD10 Code Diagnosis IMO Codes Diagnosis Note [id number] [place] [address] 12/14/2022 13:17:55 12/14/2022 13:57:30 History of left total knee replacement 9792156512 963775 Z96.652 [id number] MD JODIE Hastings [address] [place] [address] 02/15/2023 13:16:10 02/15/2023 13:33:47 Aftercare 238511254 Z47.1 Knee joint painful on movement 903061312 M25.569 [id number] [address] [place] [address] 05/01/2023 12:48:18 05/01/2023 13:14:35 History of left total knee replacement 2779323840 922046 Z96.652 History of right total knee replacement 6245653571 869196 Z96.651 [id number] SHAE [address]OD [address] [place] [address] 06/07/2023 14:35:46 06/07/2023 15:05:24 History of left total knee replacement 1025343249 917236 Z96.652 [id number] MD JODIE Cruz [address] [place] [address] 11/23/2023 13:02:12 11/23/2023 13:49:54 Pain of right hand 2012582215 55795 M79.641 Additional diagnosis detail: Right hand pain Pain of left hand 841316 2765 27255 M79.642 Additional diagnosis detail: Left hand pain Bilateral carpal tunnel syndrome 9219384250 1431078 G56.03 [id number] MD JODIE Cruz [address] [place] [address] 12/21/2023 13:38:58 12/21/2023 14:50:18 Bilateral carpal tunnel syndrome 9955780632 4596869 G56.03 [id number] MD JODIE Cruz [address] [place] [address] 02/01/2024 09:45:44 02/01/2024 10:07:42 Bilateral carpal tunnel syndrome 9174994563 2204452 G56.03 M19.041 Additional diagnosis detail: Arthritis of right hand Arthritis of joint of right hand 8305468771 68341 M19.041 IP joint arthritis of right hand [id number] SHAE OLVERA [address] [place] [address] 03/01/2024 14:35:27 03/01/2024 14:46:03 Bilateral carpal tunnel syndrome 7160252908 8200501 G56.03 M19.041 [id number] SHAE OLVERA [address] [place] [address] 04/24/2024 14:06:05 04/24/2024 14:29:34 Bilateral carpal tunnel syndrome 6213257233 9955609 G56.03 M19.041 [id number] MD JODIE Jackson [address] [place] [address] 08/13/2024 15:11:39 08/13/2024 16:01:21 Bilateral carpal tunnel syndrome 1046176088 5538626 G56.03 M19.041 Pain in fi nger of right hand 3650877657 86384 M79.644 [id number] 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 2756567194 9175601 M19.041 [id number] Health Concerns Section Related Observation LastModified by Organization Detai ls LastModified Time None Recorded Concern Status LastModified by Organization Details LastModified Time None Recorded Advance Directives Directive None Recorded Payers Insurance Date Sequence Insurance Name Policy Number Policy [place] Covered Member ID [place] Member ID Guarantor Name 08/13/2024 1 [facility] (MEDICARE REPLACEMENT/ADV ANTAGE - HMO) [id number] Emigdio Zambrano [id number] Emigdio Zambrano 08/13/2024 1 [facility] (MEDICARE REPLACEMENT/ADV ANTAGE - HMO) [id number] Emigdio Zambrano [id number] Emigdio Zambrano Notes Date Note Type Note Provider Name and Address Organization Details Recorded Time 08/13/2024 text/html ROS as noted in the HPI This is a 79-year-old male who presents as a follow-up for right carpal tunnel syndrome status post carpal tunnel release on 01/22/[address] Washburn. He has been seeing Jaciel Vincent for right hand stiffness and has been in physical therapy. He has difficulty with making a full composite fist and stiffness especially in the middle and ring finger. He thinks that therapy was somewhat helpful, he went to this for 9 weeks and has finished. He notes mild progress. He denies any locking or triggering. He denies any numbness or tingling. All of his preoperative symptoms have improved. Sue Stover MD [address], [place], [address], [place] - [facility] 08/14/2024 08:41:40
--- OUTSIDE RECORDS SUMMARY | 2025-06-27 12:34 | XMS_ITS | Clinical Summary ---
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
== END 2025-06-27 12:02 | disposition home or self-care (01) ==
PROVIDERS: Visit Provider Internal Medicine
DX: M25.562 Pain in left knee (principal)
CPT/HCPCS: 99213

== ENCOUNTER → 2025-06-27 11:44 | Outpatient (BNVA) | payer MEDICARE, SELFPAY | PROVIDERS: Visit Provider Internal Medicine | DX: M25.562 Pain in left knee (principal) | CPT/HCPCS: 99212 ==